=== PATIENT | female | born 1950 | race African-American/Black ===

== ENCOUNTER 2019-06-22 12:53 | Outpatient (CLI) | payer MEDICARE, SELFPAY ==
--- NOTE | ~2019-06-22 | XR_ITS ---
XR lumbar spine min 4V DATE: 06/22/2019 13:29 INDICATION: Acute left-sided low back pain TECHNIQUE: AP, lateral, bilateral oblique and coned lateral lumbosacral views COMPARISON: None FINDINGS: There is degenerative spurring of the included lower thoracic spine. There is degenerative disc disease throughout the lumbar and lumbosacral spine, most severe at L4-5. There is straightening of the lumbar spine. No spondylolysis or spondylolisthesis. No fracture or bone destruction is evident. The lumbar pedicles are intact. There is sacralization of L5 on the right. The sacroiliac joints appear normal. IMPRESSION: Degenerative changes of the thoracic and lumbar spine Reviewed, dictated and finalized at location B. ATE SECRETARY
== END 2019-06-22 12:54 | disposition home or self-care (01) ==
LOC: ANHIMG 13:06
DX: M51.36 Other intervertebral disc degeneration, lumbar region (principal); M51.34 Other intervertebral disc degeneration, thoracic region
CPT/HCPCS: 72110

== ENCOUNTER 2019-07-09 09:32 | Outpatient (CLI) | payer MEDICARE, SELFPAY ==
--- NOTE | ~2019-07-09 | CT_ITS ---
EXAMINATION: CT abdomen pelvis wo con DATE: 07/09/2019 11:01 INDICATION: Epigastric abdominal pain. Left upper quadrant abdominal pain. Back pain. TECHNIQUE: Computed tomography (CT) of the abdomen and pelvis was performed without intravenous contr ast. Automated exposure control and iterative reconstruction technique were employed. Exam dose: 438 .72 mGy-cm total exam DLP. COMPARISON: 11/21/2013 CT abdomen pelvis FINDINGS: There is discoid atelectasis or scarring at the lung bases. Normal heart size. No pericardial or pleural effusion. The liver, gallbladder, bile ducts, spleen, pancreas, pancreatic duct and adrenal glands appear shirin l on this limited noncontrast examination. 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 No left or right renal mass lesion or urinary tract calculus or hydroureteronephrosis. The ur inary bladder is not optimally evaluated due to complete evacuation. Status post hysterectomy. There is atherosclerotic calcification of the abdominal aorta and iliac arteries. No evidence of abdo segun aortic aneurysm. No intraperitoneal or retroperitoneal or pelvic mass lesion or adenopathy or a scites. There are numerous diverticula of the left and right colon and to a lesser extent transverse and asce nding colon. No CT evidence of diverticulitis. No bowel obstruction or intraperitoneal free air. Small fat-containing umbilical hernia. Multilevel degenerative disc disease the lumbar spine, particularly at L3-4 and L4-5. Diffuse idiopat hic skeletal hyperostosis of the thoracolumbar spine. IMPRESSION: Duplication incomplete rotation of right kidney Status post hysterectomy Diverticulosis of left and right colon; no CT evidence of diverticulitis Degenerative changes of the thoracic and lumbar spine Reviewed, dictated and finalized at Location A. Reviewed, dictated and finalized at location B. CTS CONSERVATOR
== END 2019-07-09 09:33 | disposition home or self-care (01) ==
LOC: ANHIMG 09:50
DX: R10.13 Epigastric pain (principal); R10.12 Left upper quadrant pain; M54.9 Dorsalgia, unspecified; D50.9 Iron deficiency anemia, unspecified; K57.30 Diverticulosis of large intestine without perforation or abscess without bleeding
CPT/HCPCS: 74176

== ENCOUNTER 2019-11-28 11:13 | Outpatient (CLI) | payer MEDICARE, SELFPAY ==
--- NOTE | ~2019-11-28 | MM_ITS ---
EXAMINATION: MM screening [facility] BI w treva HISTORY: Screening mammogram TECHNIQUE: Craniocaudal and mediolateral oblique 3-D tomosynthesis images were obtained and synthetic 2-D images were generated. CAD analysis was submitted and interpreted. COMPARISON: 10/07/2018, 03/01/2016, 02/21/2015 bilateral digital screening mammogram examinations BREAST PARENCHYMAL COMPOSITION: The breasts are extremely dense, which lowers the sensitivity of mamm ography. FINDINGS: There is no evidence of suspicious mass, calcification, or architectural distortion to sugg est malignancy in either breast. There has been no suspicious interval change. IMPRESSION: 1. No mammographic evidence of malignancy. 2. Recommend routine screening mammography in one year. BI-RADS Category 1: Negative Reviewed, dictated and finalized at location A.
== END 2019-11-28 11:14 | disposition home or self-care (01) ==
DX: Z12.31 Encounter for screening mammogram for malignant neoplasm of breast (principal)
CPT/HCPCS: 77063; 77067

== ENCOUNTER 2020-12-14 13:52 | Emergency (ER) | payer MEDICARE, SELFPAY ==
--- NOTE | ~2020-12-14 | XR_ITS ---
EXAMINATION: XR wrist RT min 3V DATE: 12/14/2020 14:25 INDICATION: Right wrist pain and swelling. TECHNIQUE: 4 views of right wrist were obtained. COMPARISON: None. FINDINGS: Bone alignment is normal. No fracture. There is mild osteoarthritis of distal radioulnar lynsey int and triscaphe joint. There are dystrophic calcifications in the wrist. IMPRESSION: 1. Mild polyarticular osteoarthritis. Reviewed, dictated and finalized at location A.
[2020-12-14 14:14] VITALS: BP 140/60; PULSE 74; RESP 16; TEMP 36.5; O2SAT 100
[2020-12-14 15:19] VITALS: BP 140/60; PULSE 74; RESP 18; TEMP 36.5; O2SAT 100
--- NOTE | 2020-12-14 15:20 | ED.UPPEXIN ---
HPI - Extremity Injury (Upper) History of Present Illness HPI narrative: 70 yo female presents to the ED c/o wrist pain. She has had pain and swelling to the right wrist for about the past week. Worse with movement. Tender to touch. No known injury. No prior episodes. No fever, weaknes, numbness. Related Data Allergies Allergy/AdvReac Type Severity Reaction Status Date / Time Iodinated Contrast Media Allergy Intermediate SWELLING Verified 10/20/20 12:50 iodine Allergy Unknown Unknown Verified 12/14/20 15:27 lovastatin Allergy Unknown Verified 12/14/20 15:27 simvastatin Allergy Unknown Verified 12/14/20 15:27 topiramate [From Topamax] Allergy Unknown Verified 12/14/20 15:27 Review of Systems Review of Systems: All systems reviewed & are unremarkable except as noted in HPI and below PMFSH Family History Family History (System 10/20/20 @ 12:50 by Izaiah Li) Other Family history of arthritis Family history of malignant neoplasm Hypertension Social History Social History (System 10/20/20 @ 12:50 by Izaiah Li) Smoking status: Never smoker Alcohol intake: current Exam Const: General: healthy appearing, no acute distress and alert Nutritional Appearance: well nourished Orientation/consciousness: patient oriented x3 HENMT: Head: normal to inspection Resp: Effort & Inspection: normal respiratory effort Auscultation: clear to auscultation bilaterally Cardio: Rate: regular rate Rhythm: regular rhythm Other: 2+ right radial Skin: Other: Mild redness around right wrist. Neuro: General: patient oriented x3, moves all extremities, no focal motor deficits and CN's II-XI intact bilaterally Speech: normal speech Gait exam (Neuro): Normal gait present Extrem: Other: Mild-moderate right wrist swelling Psych: Affect: Anxious affect present Course Vital Signs Vital signs: Vital Signs Temperature 36.5 C 12/14/20 14:14 Pulse Rate 74 12/14/20 14:14 Respiratory Rate 16 12/14/20 14:14 Blood Pressure 140/60 12/14/20 14:14 Pulse Oximetry 100 12/14/20 14:14 Temperature 36.5 C 12/14/20 15:19 Pulse Rate 74 12/14/20 15:19 Respiratory Rate 18 12/14/20 15:19 Blood Pressure 140/60 12/14/20 15:19 Pulse Oximetry 100 12/14/20 15:19 Procedures Joint Aspiration/Injection Joint Asp./Inject. 1: Joint Aspirated: wrist/hand Ultrasound Guidance: No Skin Prep: sterile prep and drape Local Anesthetic: lidocaine 1% Amount of anesthesia used (mL): 2 Needle Size Used: 18G Fluid Obtained: bloody Total fluid obtained (mL): 1 Patient Tolerated Procedure: well and no complications Additional Comments: Not enough fluid obtained for labs MDM - Extremity Injury (Upper) MDM Narrative Medical decision making narrative: Septic joint unlikely. There are mild signs of inflammation which makes gout a possibility, although no prior history. Unable to obtain enough fluid for crystal analysis. She does have OA on x-ray, so this is likely contributing, but probably not the only factor. I will treat for gout. Differential Diagnosis Differential diagnosis: Likely other (GOUT, septic joint, OA) Medical Records Attestation: I reviewed the patient's medical records. Imaging Data Radiologist's impression: ITS Impressions Wrist X-Ray 12/14/20 14:34 IMPRESSION: 1. Mild polyarticular osteoarthritis. Discharge Plan Discharge Clinical Impression: Inflammatory arthropathy Patient Disposition: Home, Self-Care Condition: Stable Instructions: Gout (ED), Swollen Joint (ED) Prescriptions: New prednisone 20 mg tablet 40 mg PO DAILY Qty: 14 RF: 0 Follow-up/Referrals: Sheryl,DO Franci [Primary Care Provider] -
[2020-12-14] MEDS: predniSONE 20 MG TABLET 60 MG PO (16:13)
== END 2020-12-14 17:00 | disposition home or self-care (01) ==
PROVIDERS: Emergency Provider Emergency Medicine; PCP Internal Medicine
DX: M19.031 Primary osteoarthritis, right wrist (principal)
CPT/HCPCS: 20600; 73110; 99283; J7512

== ENCOUNTER 2020-12-23 12:41 | Outpatient (CLI) | payer MEDICARE, SELFPAY ==
--- NOTE | ~2020-12-23 | MM_ITS ---
EXAMINATION: MM screening [facility] BI w treva HISTORY: Screening mammogram TECHNIQUE: Craniocaudal and mediolateral oblique 3-D tomosynthesis images were obtained and synthetic 2-D images were generated. CAD analysis was submitted and interpreted. COMPARISON: 11/28/2019, 10/07/2018, 03/01/2016 BREAST PARENCHYMAL COMPOSITION: The breasts are heterogeneously dense, which may obscure small masses . FINDINGS: There is no evidence of suspicious mass, calcification, or architectural distortion to sugg est malignancy in either breast. There has been no suspicious interval change. IMPRESSION: 1. No mammographic evidence of malignancy. 2. Recommend routine screening mammography in one year. BI-RADS Category 1: Negative Reviewed, dictated and finalized at location A.
== END 2020-12-23 12:42 | disposition home or self-care (01) ==
LOC: ANHIMG 12:45
PROVIDERS: PCP Internal Medicine; Visit Provider Internal Medicine
DX: Z12.31 Encounter for screening mammogram for malignant neoplasm of breast (principal)
CPT/HCPCS: 77063; 77067

== ENCOUNTER 2022-04-02 07:35 | Outpatient (CLI) | payer MEDICARE, SELFPAY ==
--- NOTE | ~2022-04-02 | MM_ITS ---
EXAMINATION: MM screening [facility] BI w treva HISTORY: Screening mammogram TECHNIQUE: Craniocaudal and mediolateral oblique 3-D tomosynthesis images were obtained and synthetic 2-D images were generated. CAD analysis was submitted and interpreted. COMPARISON: 12/23/2020, 11/28/2019, 10/07/2018 BREAST PARENCHYMAL COMPOSITION: The breasts are heterogeneously dense, which may obscure small masses . FINDINGS: No suspicious mass, calcification, or architectural distortion are identified in either sissy ast to suggest malignancy. There has been no suspicious interval change. IMPRESSION: 1. No mammographic evidence of malignancy. 2. Recommend routine screening mammography in one year. BI-RADS Category 1: Negative Reviewed, dictated and finalized at location A. OUTFIT SUPERVISOR
== END 2022-04-02 07:36 | disposition home or self-care (01) ==
LOC: ANHIMG 07:38
PROVIDERS: PCP Internal Medicine; Visit Provider Internal Medicine
DX: Z12.31 Encounter for screening mammogram for malignant neoplasm of breast (principal)
CPT/HCPCS: 77063; 77067

== ENCOUNTER 2023-06-25 09:21 | Outpatient (CLI) | payer MEDICARE, SELFPAY ==
--- NOTE | ~2023-06-25 | MM_ITS ---
EXAMINATION: MM screening [facility] BI w treva HISTORY: Screening TECHNIQUE: Craniocaudal and mediolateral oblique 3-D tomosynthesis images were obtained and synthetic 2-D images were generated. CAD analysis was submitted and interpreted. COMPARISON: Comparison to multiple prior studies sequentially, with oldest reviewed study dated 02/03. BREAST PARENCHYMAL COMPOSITION: Dense: The breasts are heterogeneously dense, which may obscure small masses FINDINGS: There is no evidence of suspicious mass, calcification, or architectural distortion to sugg est malignancy in either breast. There has been no suspicious interval change. IMPRESSION: 1. No mammographic evidence of malignancy. 2. Recommend routine screening mammography in one year. BI-RADS Category 1: Negative Reviewed, dictated and finalized at location A. HBORHOOD AIDE
== END 2023-06-25 09:22 | disposition home or self-care (01) ==
DX: Z12.31 Encounter for screening mammogram for malignant neoplasm of breast (principal)
CPT/HCPCS: 77063; 77067

== ENCOUNTER 2023-07-21 08:41 | Emergency (ER) | payer MEDICARE, SELFPAY ==
--- NOTE | ~2023-07-21 | XR_ITS ---
EXAMINATION: XR knee RT 3V DATE: 07/21/2023 09:18 INDICATION: Right posterior knee pain TECHNIQUE: Anteroposterior, oblique and crosstable lateral views of the right knee were obtained COMPARISON: None. FINDINGS: Alignment is normal. No fracture. Chondrocalcinosis at both the medial and lateral compartments. Amparo nt spaces appear normal on nonweightbearing imaging. No joint effusion/layering lipohemarthrosis. Sma ll amount of scattered vascular calcification along the femoral and popliteal arteries. Soft tissues are otherwise unremarkable. IMPRESSION: 1. Chondrocalcinosis at the medial lateral compartments of the right knee. 2. No joint effusion or osseous abnormality. Reviewed, dictated and finalized at location A.
[2023-07-21 08:42] VITALS: BP 168/68; PULSE 75; RESP 17; TEMP 36.5; O2SAT 100
--- NOTE | 2023-07-21 08:52 | ED.LOWEXIN ---
HPI - Extremity Injury (Lower) General Chief Complaint: Extremity Injury, Lower Stated Complaint: R Leg pain Time Seen by Provider: 07/21/23 08:52 Source: patient Mode of arrival: ambulatory Limitations: no limitations History of Present Illness HPI Narrative: Siddhartha is a 73-year-old female patient presenting to the ER today with complaints of posterior medial right knee pain that started Eddi after. She is qualify her pain as constant aching pain and stating it is a 10/10 currently. Pain is worse to stand/ambulate. No history of DVT. There is no leg swelling or erythema in the right lower extremity Related Data Allergies Allergy/AdvReac Type Severity Reaction Status Date / Time Iodinated Contrast Media Allergy Intermediate SWELLING Verified 07/21/23 09:23 iodine Allergy Unknown Unknown Verified 07/21/23 09:23 lovastatin Allergy Unknown Verified 07/21/23 09:23 simvastatin Allergy Unknown Verified 07/21/23 09:23 topiramate [From Topamax] Allergy Unknown Verified 07/21/23 09:23 Review of Systems Review of Systems: Pertinent positives per HPI. Patient denies any fever, chills, rash, headache, visual changes, dizziness, cough, runny nose, sore throat, shortness of breath, chest pain, palpitations, nausea, vomiting, diarrhea, constipation, abdominal pain, or any urinary issues. [facility] Family History Family History Other Family history of arthritis Family history of malignant neoplasm Hypertension Social History Social History Smoking status: Never smoker Alcohol intake: current Comments At the time of my signature, I reviewed and agree with the nursing past medical, surgical, social, and family history. There is no relevant family history pertinent to the patient complaint. Exam Narrative: General: Well-developed, well nourished, in no apparent distress Head: Normocephalic, atraumatic. Cardio: Regular rate and rhythm, s1 and s2 normal, no murmur appreciated. Resp: Clear to auscultation bilaterally, no rhonchi, rales, wheezing or rubs. Musculoskeletal: No deformity,tender to palpation over the medial posterior knee, pain with flexion and extension over the medial posterior knee, grossly normal range of motion, muscle strength strong and equal, peripheral pulse strong, no edema, no cyanosis Course Course Emergency Course: Portions of this record may have been created with voice recognition software. Vital Signs Vital signs: Vital Signs Temperature 36.5 C 07/21/23 08:42 Pulse Rate 75 07/21/23 08:42 Respiratory Rate 17 07/21/23 08:42 Blood Pressure 168/68 H 07/21/23 08:42 Pulse Oximetry 100 07/21/23 08:42 Oxygen Delivery Room Air 07/21/23 08:42 Temperature 36.5 C 07/21/23 08:42 Pulse Rate 75 07/21/23 08:42 Respiratory Rate 17 07/21/23 08:42 Blood Pressure 168/68 H 07/21/23 08:42 Pulse Oximetry 100 07/21/23 08:42 Oxygen Delivery Room Air 07/21/23 08:42 Vital signs reviewed MDM - Extremity Injury (Lower) MDM Narrative Medical decision making narrative: At the time of visit patient is resting comfortably on the exam table. Patient appears to be nontoxic. Diagnostics: Knee X-Ray 07/21/23 09:21 IMPRESSION: 1. Chondrocalcinosis at the medial lateral compartments of the right knee. 2. No joint effusion or osseous abnormality. I suspect patient has acute posterior medial knee pain likely due to inflammation. Prescription for naproxen was sent to the pharmacy. Supportive measures were discussed with the patient and they voiced understanding discharge instructions and agrees to treatment plan. Return precautions reviewed Differential Diagnosis Differential diagnosis: Likely acute internal derangement of knee and other (Knee sprain, acute knee pain, osteoarthritis) Imaging Data Radiologist's impression: ITS Impressions Knee
[2023-07-21 09:23] VITALS: BP 147/80; PULSE 65; RESP 14; O2SAT 97
[2023-07-21] MEDS: NAPROXEN 500 MG TABLET PO (09:34)
[2023-07-21 10:14] VITALS: BP 148/105; PULSE 72; RESP 14; TEMP 36.4; O2SAT 97
== END 2023-07-21 10:16 | disposition home or self-care (01) ==
PROVIDERS: Emergency Provider Nurse Practitioner Family
DX: M25.561 Pain in right knee (principal); M11.261 Other chondrocalcinosis, right knee
CPT/HCPCS: 73562; 99283; A9270

== ENCOUNTER 2023-09-05 11:12 | Outpatient (CLI) | payer MEDICARE, SELFPAY ==
--- NOTE | ~2023-09-05 | US_ITS ---
US breast BI complete DATE: 09/05/2023 12:35 INDICATION: Heterogeneously dense breast tissue on June 25, 2023 screening mammogram, which may o bscure small masses TECHNIQUE: Real-time imaging of both complete breast echo L4 quadrants and subareolar area of each br east COMPARISON: June 25, 2023 mammogram screening mammogram FINDINGS: No suspicious mass or shadowing, cyst or other significant sonographic abnormality the daryl st is intact. IMPRESSION: BI-RADS Category 1: Negative Recommendation: Routine annual mammographic screening Reviewed, dictated and finalized at Location A. Reviewed, dictated and finalized at location A.
== END 2023-09-05 11:13 | disposition home or self-care (01) ==
DX: R92.343 Mammographic extreme density, bilateral breasts (principal); R92.2 Inconclusive mammogram
CPT/HCPCS: 76641

== ENCOUNTER 2024-06-27 07:28 | Outpatient (CLI) | payer MEDICARE, SELFPAY ==
--- NOTE | ~2024-06-27 | MM_ITS ---
EXAMINATION: MM screening laura BI w treva HISTORY: Screening mammogram TECHNIQUE: Craniocaudal and mediolateral oblique 3-D tomosynthesis images were obtained and synthetic 2-D images were generated. CAD analysis was submitted and interpreted. COMPARISON: 06/25/2023, 04/02/2022, 12/23/2020 BREAST PARENCHYMAL COMPOSITION:Dense: The breasts are heterogeneously dense, which may obscure small masses. FINDINGS: No suspicious mass, calcification, or architectural distortion are identified in either sissy ast to suggest malignancy. There has been no suspicious interval change. IMPRESSION: No mammographic evidence of malignancy. Recommend routine screening mammography in one year. BI-RADS Category 1: Negative Reviewed, dictated and finalized at location . RAL STERILE TECH
--- OUTSIDE RECORDS SUMMARY | 2024-06-27 07:33 | XMS_ITS | Encounter Summary ---
Author Organization [facility] Health Address [address] [place] [address] Care Team Providers Care Bee Breeder Name Role Phone Keenan Angulo MD Primary Care Provider [phone] Harinder Lilly MD Unavailable [phone] Keenan Angulo MD Unavailable [phone] Ivana Messina MD Unavailable [phone] Yaima Crawford MD Unavailable [phone] Eliot Shaw MD Unavailable My Cottrell MD Unavailable [phone] Karlo Mendieta MD Unavailable [phone] Guillermo Bridges MD Unavailable Unavailable Franci Rocha DO Primary Care Provider [phone] Franci Rocha DO Unavailable [phone] Juanjose Lin DPM Unavailable [phone] Shaneka Rodrigues Unavailable [phone] Shaneka Rodrigues Unavailable [phone] Encounter Details Date Type Department Care Team (Late st Contact Info) Description 05/07/2017 [facility] Outpatient Visit [facility] [address] [place] [address] Document, Scanned Social History Tobacco Use Types Packs/Day Years Used Date Smoking Tobacco: Never Smokeless Tobacco: Never Alcohol Use Standard Drinks/Week Comments Yes 1 (1 standard drink = 0.6 oz pur e alcohol) red wine Sex and Gender Information Value Date Recorded Sex Assigned at Not on file Gender Identity Not on file Sexual Orientation Not on file documented as of this encounter Plan of Treatment Upcoming Encounters Date Type Department Care Team (Latest Contact Info) Description 08/18/2024 12:00 PM CDT Hospital Encounter [facility] [address] [place] [phone] Susana Polo MD [facility] [place] [phone] Surgery General 08/18/2024 12:00 PM CDT - 08/18/2024 1:00 PM CDT Surgery [facility] [address] [place] [phone] Susana Polo MD [address] [place] [phone] COLONOSCOPY SCREEN w/ advanced endoscopist 10/19/2024 9:00 AM CDT Office Visit [facility] - Internal Medicine [address] [facility] [place] [address] Franci Rocha DO [address] [place] [phone] 11/19/2024 8:45 AM CDT Office Visit [facility] [address] [place] [address] [address] [place] [address] Zane Mejía MD [address] [place] [id number] 04/15/2025 8:30 AM SEQUINS STRINGER Office Visit [facility] - GI [address] [place] [address], [place] [address] Scheduled Procedures Name Priority Associated Diagnoses Date/Ti me COLONOSCOPY SCREEN History of colon polyps 08/18/2024 12:00 PM CDT documented as of this encounter Goals Goal Patient Goal Type Associated Problems Recent Progress Patient-Stated? Author Blood Pressure < 140/90 Blood Pressure 144/90(2024 8:12 AM SEQUINS STRINGER) No Yadi Muse MA Exercise 3X per week (30 min per time) Exercise Not on track( 015 10:01 AM SEQUINS STRINGER) No Yadi Muse MA HDL > 40 Result Component 57(10/08/2023 11:45 AM CDT) No Yadi Muse MA documented as of this encounter Visit Diagnoses Not on filedocumented in this encounter Care Teams Bee Breeder Relationship Specialty Start Date End Date Keenan Angulo MD [address] [place] [address] PCP - General 02/13/08 03/24/20 Keenan Angulo MD [address] [place] [address] PCP - Attributed-[facility] 10/09/1605/05 Franci Rocha DO [address] [place] [address] PCP - General Internal Medicine 03/25/20 Franci Rocha DO [address] [place] [address] PCP - Attributed-[facility] 05/06/20 Harinder Lilly MD [address] [place] [address] Orthopedic Surgery 08/09/16 06/25/21 Ivana Messina MD [address] [place] [address] Otolaryngology 06/09/18 Yaima Crawford MD [address] [facility] [address] [place] [address] Neurology 06/09/18 Eliot Shaw MD [address] [place] [address] [address] [place] [address] Gastroenterology 10/30/18 06/21/19 My Cottrell MD [address] [place] [address] [place] [phone] Gastroenterology 10/30/18 06/21/19 Karlo Mendieta MD [address] [place] [address] [place] [phone] Gastroenterology 10/30/18 03/24/20 Guillermo Bridges MD [address] [place] [phone] Resident Student Resident 06/22/19 Juanjose Lin, DPM [address] [address] Orthopedic 06/26/21 Shaneka Rodrigues Care Coordination Specialist Care Management 10/22/23 10/22/23 Shaneka Rodrigues Care Coordination Specialist Care Management 05/13/24 05/13/24 documented as of this encounter
--- OUTSIDE RECORDS SUMMARY | 2024-06-27 07:33 | XMS_ITS | Encounter Summary ---
Author Organization [facility] Address [address] [place] [address] Care Team Providers Care Ship Harbor Pilot Name Role Phone Ivana Messina MD Unavailable Yaima Crawford MD Unavailable [phone] Guillermo Bridges MD Unavailable Unavailable Franci Rocha DO Primary Care Provider [phone] Franci Rocha DO Unavailable Juanjose Lin [facility] Unavailable Reason for Visit * Reason Onset Date Comments Update 06/23/2024 Encounter Details Date Type Department Care Team (Late st Contact Info) Description 06/23/2024 Telephone [facility] Heart & Vascular Care [address] [place] [address] [address] [place] [address] Zane Mejía MD [address] [place] [address] [address] [place] [address] Update Social History Tobacco Use Types Packs/Day Years Used Date Smoking Tobacco: Never Passive Smoke Exposure: Never Smokeless Tobacco: Never Alcohol Use Standard Drinks/Week Comments Not Currently 1 (1 standard drink = 0.6 oz pure alcohol) rarely, last drink 2 years ago AUDIT-C Answer Date Recorded Q1: How often do you have a drink containing alc ohol? Never 05/18/2021 Average Number of Drinks Not on file 022 Frequency of Binge Drinking Not on file 05/06 PHQ-2 Answer Date Recorded Patient Health Questionnaire-2 Score 0 10/08/2023 Sex and Gender Information Value Date Recorded Sex Assigned at Not on file Gender Identity Not on file Sexual Orientation Not on file documented as of this encounter Functional Status Functional Status Response Date of Assess ment Is person deaf or have serious hearing difficult y? No 05/18/2021 Is person blind or have serious difficulty seein g? No 05/18/2021 Does person have serious dif ficulty walking/climbing stairs? No 05/18/2021 Does person have difficulty dressing/bathing? No 05/18/2021 Does person have difficulty doing errands alone? No 05/18/2021 Cognitive Status Response Date of Assessm ent Does person have difficulty concentrating/remembering/making decisions? No 05/18/2021 documented as of this encounter Miscellaneous Notes * Telephone Encounter - Jr Jerez MA - 06/24/2024 9:26 AM CST Advised patient no current changes. Patient voiced understanding. TER PATTERNMAKER * Telephone Encounter - Jr Jerez MA - 06/23/2024 1:23 PM CST BP log below: 2/3 120/65 2/4 128/65 2/6 146/72 2/7 127/66 2/10 132/72 2/12 128/71 2/15 133/68 2/17/137/78 06/23/138/80 TER PATTERNMAKER * Telephone Encounter - Pilar Alicea - 06/23/2024 11:41 AM CST Pt request a call back to update on medication. TER PATTERNMAKER documented in this encounter Plan of Treatment Upcoming Encounters Date Type Department Care Team (Latest Contact Info) Description 08/18/2024 12:00 PM CDT Hospital Encounter [facility] ENDOSCOPY [address] [place] [phone] Susana Polo MD [address] [place] [phone] Surgery General 08/18/2024 12:00 PM CDT - 08/18/2024 1:00 PM CDT Surgery [facility] ENDOSCOPY [address] [place] [phone] Susana Polo MD [facility] [place] [address] COLONOSCOPY SCREEN w/ advanced endoscopist 10/19/2024 9:00 AM CDT Office Visit [facility] - Internal Medicine [address] [place] [address] Franci Rocha DO [address] [place] [phone] 11/19/2024 8:45 AM CDT Office Visit [facility] Heart & Vascular Care [address] [facility] [address] [place] [address] Zane Mejía MD [address] [place] [address] [address] [place] [address] 04/15/2025 8:30 AM PLASTER PATTERNMAKER Office Visit [facility] [place] [address] [place] [address], [facility] [place] [phone] Scheduled Procedures Name Priority Associated Diagnoses Date/Ti me COLONOSCOPY SCREEN History of colon polyps 08/18/2024 12:00 PM CDT documented as of this encounter Goals Goal Patient Goal Type Associated Problems Recent Progress Patient-Stated? Author Blood Pressure < 140/90 Blood Pressure 144/90(05/21 8:12 AM PLASTER PATTERNMAKER) No Yadi Muse MA Exercise 3X per week (30 min per time) Exercise Not on track(2014 10:01 AM PLASTER PATTERNMAKER) Yadi Frausto MA Medication Management General On track(2023 9:01 AM PLASTER PATTERNMAKER) Keyona Banuelos RN Note: Expected end date: Ongoing Interventions: Take all medications as prescribed Let your doctor know right away about any changes in your medications Make sure to request a refill of your medication at least one week prior to your last dose Medication Management General No Janae Elliott, RN Note: Expected end date: oNGOING Interventions: Take all medications as prescribed Let your doctor know right away about any changes in your medications Make sure to request a refill of your medication at least one week prior to your last dose Medication Management General No Janae Elliott, ANIYA Note: Expected end date: ongoing Interventions: Take all medications as prescribed Let your doctor know right away about any changes in your medications Make sure to request a refill of your medication at least one week prior to your last dose HDL > 40 Result Component 57( 11:45 AM CDT) Yadi Frausto MA documented as of this encounter Visit Diagnoses Not on filedocumented in this encounter Care Teams Ship Harbor Pilot Relationship Specialty Start Date End Date Franci Rocha DO [address] [place] [phone] PCP - General Internal Medicine 03/25/20 Franci Rocha DO [address] [place] [phone] PCP - [facility] 05/06/20 Ivana Messina MD Otolaryngology 06/09/18 Yaima Crawford MD Neurology 06/09/18 Guillermo Bridges MD Resident Student Resident 2/17/20 Juanjose Lin DPM [address] [facility]. [address] [place] [address] Orthopedic 06/26/21 documented as of this encounter
--- OUTSIDE RECORDS SUMMARY | 2024-06-27 07:33 | XMS_ITS | Encounter Summary ---
Author Organization [facility] Health Address [address] [facility] [place] [address] Care Team Providers Care Silviculture Teacher Name Role Phone Keenan Angulo MD Primary Care Provider [phone] Harinder Lilly MD Unavailable [phone] Keenan Angulo MD Unavailable [phone] Ivana Messina MD Unavailable [phone] Yaima Crawford MD Unavailable [phone] Eliot Shaw MD Unavailable My Cottrell MD Unavailable [phone] Karlo Mendieta MD Unavailable [phone] Guillermo Bridges MD Unavailable Unavailable Franci Rocha DO Primary Care Provider [phone] Franci Rocha DO Unavailable [phone] Juanjose Lin DPM Unavailable [phone] Shaneka Rodrigues Unavailable [phone] Shaneka Rodrigues Unavailable [phone] Encounter Details Date Type Department Care Team (Late st Contact Info) Description 04/05/2017 [facility] Outpatient Visit [facility] [address] [place] [address] Document, Scanned Social History Tobacco Use Types [...] Description 08/18/2024 12:00 PM CDT Hospital Encounter [facility] ENDOSCOPY [address] [place] [phone] Susana Polo MD [facility] [place] [phone] Surgery General 08/18/2024 12:00 PM CDT - 08/18/2024 1:00 PM CDT Surgery [facility] ENDOSCOPY [address] [place] [phone] Susana Polo MD [address] [place] [phone] COLONOSCOPY SCREEN w/ advanced endoscopist 10/19/2024 9:00 AM CDT Office Visit [facility] - Internal Medicine [address] [facility] [place] [address] Franci Rocha DO [address] [place] [phone] 11/19/2024 8:45 AM CDT Office Visit [facility] Heart & Vascular Care [address] [place] [address] [address] [place] [address] Zane Mejía MD [address] [place] [address] 04/15/2025 8:30 AM RATE ANALYST Office Visit [facility] Physician Group - [place] [address] [place] [address], [place] [address] Scheduled Procedures Name Priority Associated Diagnoses Date/Ti me COLONOSCOPY SCREEN History of colon polyps 08/18/2024 12:00 PM CDT documented as of this encounter Goals Goal Patient Goal Type Associated Problems Recent Progress Patient-Stated? Author Blood Pressure < 140/90 Blood Pressure 144/90(2024 8:12 AM RATE ANALYST) No Yadi Muse MA Exercise 3X per week (30 min per time) Exercise Not on track( 015 10:01 AM RATE ANALYST) No Yadi Muse MA HDL > 40 Result Component 57(10/08/2023 11:45 AM CDT) No Yadi Muse MA documented as of this encounter Visit Diagnoses Not on filedocumented in this encounter Care Teams Silviculture Teacher Relationship Specialty Start Date End Date Keenan Angulo MD [address] [place] [address] PCP - General 02/13/08 03/24/20 Keenan Angulo MD [address] [place] [address] PCP - Att[facility] 10/09/1605/05 Franci Rocha DO [address] [place] [address] PCP - General Internal Medicine 03/25/20 Franci Rocha DO [address] [place] [address] PCP - Attributed-[facility] 05/06/20 Harinder Lilyl MD [address] [place] [address] Orthopedic Surgery 08/09/16 06/25/21 Ivana Messina MD [address] [place] [address] Otolaryngology 06/09/18 Yaima Crawford MD [address] [facility] [address] [place] [address] Neurology 06/09/18 Eliot Shaw MD [address] [place] [address] [address] [place] [address] Gastroenterology 10/30/18 06/21/19 My Cottrell MD [address] [place] [address] [place] [address] Gastroenterology 10/30/18 06/21/19 Karlo Mendieta MD [address] [place] [address] [place] [address] Gastroenterology 10/30/18 03/24/20 Guillermo Bridges MD [address] [place] [address] Resident Student Resident 06/22/19 Juanjose Lin, DPM [address] [address] Orthopedic 06/26/21 Shaneka Rodrigues Care Coordination Specialist Care Management 10/22/23 10/22/23 Shaneka Rodrigues Care Coordination Specialist Care Management 05/13/24 05/13/24 documented as of this encounter
--- OUTSIDE RECORDS SUMMARY | 2024-06-27 07:33 | XMS_ITS | Encounter Summary ---
Author Organization [facility] Health Address [address] [place] [address] Care Team Providers Care Business Trainer Name Role Phone Keenan Angulo MD Primary Care Provider [phone] Harinder Lilly MD Unavailable [phone] Keenan Angulo MD Unavailable [phone] Ivana Messina MD Unavailable [phone] Yaima Crawford MD Unavailable [phone] Eliot Shaw MD Unavailable My Cottrell MD Unavailable [phone] Karlo Mendieta MD Unavailable [phone] Guillermo Bridges MD Unavailable Unavailable Franci Rocha DO Primary Care Provider [phone] Franci Rocha DO Unavailable [phone] Juanjose Lin DPM Unavailable [phone] Shaneka Rodrigues Unavailable [phone] Shaneka Rodrigues Unavailable [phone] Encounter Details Date Type Department Care Team (Late st Contact Info) Description 06/07/2017 [facility] Outpatient Visit [facility] [address] [place] [address] Document, Scanned Social History Tobacco Use Types [...] Description 08/18/2024 12:00 PM CDT Hospital Encounter [facility] ENDOSCOPY [address] [place] [phone] Susana Polo MD [facility] [place] [address] Surgery General 08/18/2024 12:00 PM CDT - 08/18/2024 1:00 PM CDT Surgery [facility] ENDOSCOPY [address] [place] [phone] Susana Polo MD [address] [place] [phone] COLONOSCOPY SCREEN w/ advanced endoscopist 10/19/2024 9:00 AM CDT Office Visit [facility] - Internal Medicine [address] [facility] [place] [address] Franci Rocha DO [address] [place] [address] 11/19/2024 8:45 AM CDT Office Visit [facility] Heart & Vascular Care [address] [place] [address] [address] [place] [address] Zane Mejía MD [address] [place] [address] 04/15/2025 8:30 AM BUILDING CERTIFIER Office Visit [facility] Physician Group - GI [address] [place] [address], [place] [address] Scheduled Procedures Name Priority Associated Diagnoses Date/Ti me COLONOSCOPY SCREEN History of colon polyps 08/18/2024 12:00 PM CDT documented as of this encounter Goals Goal Patient Goal Type Associated Problems Recent Progress Patient-Stated? Author Blood Pressure < 140/90 Blood Pressure 144/90(2024 8:12 AM BUILDING CERTIFIER) No Yadi Muse MA Exercise 3X per week (30 min per time) Exercise Not on track( 015 10:01 AM BUILDING CERTIFIER) No Yadi Muse MA HDL > 40 Result Component 57(10/08/2023 11:45 AM CDT) No Yadi Muse MA documented as of this encounter Visit Diagnoses Not on filedocumented in this encounter Care Teams Business Trainer Relationship Specialty Start Date End Date Keenan Angulo MD [address] [place] [address] PCP - General 02/13/08 03/24/20 Keenan Angulo MD [address] [place] [address] PCP - Attributed-[facility] 10/09/1605/05 Franci Rocha DO [address] [place] [address] PCP - General Internal Medicine 03/25/20 Franci Rocha DO [address] [place] [address] PCP - Attributed-[facility] 05/06/20 Harinder Lilly MD [address] [place] [address] Orthopedic Surgery 08/09/16 06/25/21 Ivana Messina MD [address] [place] [address] Otolaryngology 06/09/18 Yaima Crawford MD [address] [facility] [address] [place] [address] Neurology 06/09/18 Eliot Shaw MD [address] [place] [address] [address] [place] [address] Gastroenterology 10/30/18 06/21/19 My Cottrell MD [address] [place] [address] [place] [address] Gastroenterology 10/30/18 06/21/19 Karlo Mendieta MD [address] [place] [address] [place] [address] Gastroenterology 10/30/18 03/24/20 Guillermo Bridges MD [address] [place] [address] Resident Student Resident 06/22/19 Juanjose Lin, DPM [address] [address] Orthopedic 06/26/21 Shaneka Rodrigues Care Coordination Specialist Care Management 10/22/23 10/22/23 Shaneka Rodrigues Care Coordination Specialist Care Management 05/13/24 05/13/24 documented as of this encounter
--- OUTSIDE RECORDS SUMMARY | 2024-06-27 07:33 | XMS_ITS | Referral Summary ---
Author Organization [facility] Address [address] [place] [address] Care Team Providers Care Director Of Recruiting Name Role Phone Ivana Messina MD Unavailable Yaima Crawford MD Unavailable [phone] Guillermo Bridges MD Unavailable Unavailable Franci Rocha DO Primary Care Provider [phone] Franci Rocha DO Unavailable Juanjose Lin DPM Unavailable [phone] Source Comments [facility],non-owned Affiliates and Associated Physician Practices is amultiple site organization consisting of ambulatory clinics and hospital sitesin [place], [place], [place] and [place]. This disclosure is being madepursuant to the Care Everywhere program and may not contain all information available regarding this patient. Last updated 18.[facility] Encounters Date Type Department Care Team Description 06/27/2024 Refill [facility] - Internal Medicine [address] [facility] [facility] [place] [place] [address] Franci Rocha DO Refill Request 06/23/2024 Telephone [facility] [address] [place] [address] [address] [place] [address] Zane Mejía MD Update 06/05/2024 8:40 AM UTILIZATION MANAGER - 06/05/2024 11:59 PM UTILIZATION MANAGER Hospital Encounter [facility] [address] [place] [address] Zane Mejía MD Discharge Disposition: Home or Self Care 05/21/2024 8:00 AM UTILIZATION MANAGER Office Visit [facility] [place] [address] Franci Rocha DO Friedman, Mark A, MD Essential hypertension (Primary Dx); SVT (supraventricular tachycardia) (HCC); Palpitations 05/13/2024 Patient Outreach [facility] - Care Coordination [address] [place] [address] Shaneka Rodrigues Outreach Preventive Care 04/16/2024 Travel 04/16/2024 9:00 AM UTILIZATION MANAGER Office Visit [facility] - GI [address] [facility] [place] [address] Andria Awad MD Colon cancer screening (Primary Dx) 04/13/2024 10:40 AM UTILIZATION MANAGER Office Visit [facility] - Internal Medicine [address] [facility] [place] [address] Franci Rocha DO SVT (supraventricular tachycardia) (HCC) (Primary Dx); Palpitations; Need for vaccination; Essential hypertension from Last 3 Months Allergies Active Allergy Reactions Criticality Noted Date Comments Irbesartan-Hydrochlorot hiazide Nausea Low 07/23/2008 Fish Allergy Itching,Swelling High 02/27/2021 Food Anaphylaxis High 07/25/2023 seafood Lovastatin Swelling High 07/23/2008 Nifedipine Dizziness High 07/23/2008 Dizziness Calcium Carbonate-Vitamin D Itching Medium 06/24/2009 Pepcid Itching Medium 10/08/2019 Simvastatin Myalgias Low 07/23/2008 Topiramate Shortness of Breath High 04/09/2018 Tramadol Hcl Other Low 07/23/2008 Doesn't work well, no actual allergy Medications * Be aware that medications may not be up to date on this document. Alwaysverify current medications with the patient. Medication Sig Dispensed Refills Start Date End Date Status polyethylene glycol 3350 (MIRALAX) packet Take 17 (seventeen) g by mouth 2 times daily Active Wheat Dextrin (BENEFIBER DRINK MIX PO) Take 1 Each by mouth 2 times daily Active Multiple Vitamins-Minerals (WOMENS MULTI VITAMIN & MINERAL PO) Take 1 tablet by mouth once daily Centrum Active acetaminophen (TYLENOL) 325 MG tablet Take 2 tablets by mouth every 4 hours as needed Maximum allowable Acetaminophen amount = 4 Grams (4000 mg) / 24 hours. 10/31/2018 Active Probiotic Product (PROBIOTIC DAILY) capsule Take 1 (one) capsule by mouth once daily Active Coenzyme Q10 200 MG Take 1 (one) capsule by mouth every evening 90 tablet 4 10/03/2021 Active zinc oxide (Sandra's) 40 % ointment Apply to affected area as needed for Other (skin wound) 56 g 3 10/08/2022 Active ibuprofen (Motrin) 800 MG tablet Take 1 (one) tablet by mouth every 8 hours as needed For pain. 09/12/2022 Active dicyclomine (Bentyl) 20 MG tabletIndications: Irritable bowel syndrome with constipation TAKE 1 TABLET BY MOUTH THREE TIMES DAILY NEEDED FOR ABDOMINAL PAIN/SPASMS 180 tablet 05/10/2023 Active Nystop 266114 UNIT/GM powder APPLY TOPICALLY TO AFFECTED AREA TWICE DAILY NEEDED FOR SKIN RASH 60 g 06/24/2023 Active EPINEPHrine (Epipen) 0.3 MG/0.3ML auto-injector pen Inject 0.3 mL into muscle once as needed for Anaphylaxis 0.6 mL 1 07/25/2023 Active amLODIPine (Norvasc) 5 MG tablet Take 1 tablet by mouth twice daily 180 tablet 3 09/03/2023 Active pantoprazole EC (Protonix) 40 MG tablet TAKE 1 TABLET BY MOUTH ONCE DAILY BEFORE BREAKFAST 90 tablet 3 11/20/2023 Active lubiprostone (Amitiza) 8 MCG CAPS capsuleIndications :Irritable bowel syndrome with constipation TAKE 1 CAPSULE BY MOUTH EVERY 48 HOURS 30 capsule 6 01/28/2024 Active meloxicam (Mobic) 7.5 MG tablet Take 1 tablet by mouth once daily 30 tablet 3 03/16/2024 Active tacrolimus (Protopic) 0.1 % ointment Apply to affected area 2 times daily Active nebivolol (Bystolic) 20 MG tablet Take 1 (one) tablet by mouth once daily 90 tablet 3 05/21/2024 Active aspirin (Aspirin) 81 MG chew tablet Take 1 (one) tablet by mouth once daily 100 tablet 4 05/21/2024 Active rosuvastatin (Crestor) 10 MG tablet Take 1 (one) tablet by mouth once daily 100 tablet 4 05/21/2024 Active Active Problems Problem Noted Date Diagnosed Date SVT (supraventricular tachycardia) 10/08/2023 Increased risk of breast cancer 08/29/2023 Dense breasts 07/10/2023 Pre-diabetes 03/26/2022 Candidal dermatitis 10/09/2021 Cervical radiculopathy 10/09/2021 Chronic bilateral low back pain without sciatica 04/03/2021 Class 1 obesity due to exces s calories with serious comorbidity and body mass index (BMI) of 30.0 to 30.9 in adult 04/03/2021 History of GI bleed 04/03/2021 Numbness and tingling of foot 01/24/2021 SVT (supraventricular tachycardia) 03/25/2020 Tear of medial meniscus of left knee, subsequent encounter 06/22/2019 Atherosclerosis of aorta 05/22/2019 Overview (05/22/2019): CT Abdomaen Pelvis 07/14/18 The noncontrast enhanced vascular structures demonstrate mild atherosclerosis noted throughout the abdominal aorta and iliac vessels. Iron deficiency anemia 10/30/2018 Overview (04/03/2021): -Small bowel GI bleed-resolved -area of erythema seen on capsule study -up to date with colonoscopy. -stop iron. Recheck level in 03/2022 Irritable bowel syndrome with constipation 10/30 Overview (01/24/2021): -GI: Dr. Guillermo Bridges -GI prescribed: lubiprostone and bentyl, and gabapentin for abdominal pain. 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 Neg, ESR, RF. Uric acid normal. Will monitor for now. Irritable bowel syndrome with constipation 10/19/2020 04/03/2021 Left lower quadrant abdominal pain 03/25/2020 10/19/2020 Colon polyp 11/05/2018 10/19/2020 Left shoulder pain 10/28/2009 Overview (09/27/2014): H/O Irritative Dermatitis 07/23/2008 Overview (07/23/2008): From her jewelry H/O Previous Mastalgia 07/23/200810/19 Diverticulosis 07/23/2008 06/29/2021 Overview (07/23/2008): Colonoscopy 1998, 2007 Elective surgery for purpose s other than treating health conditions 07/23/2008 09/05/2008 Overview (02/03/2015): Removal of pigmented nevi from Lt shoulder 2000 Chronic Helicobacter pylori gastritis 07/23/2008 04/16/2011 Overview (02/03/2019): Endoscopy/colonoscopy 2001 IMO UPDT 02/03/2019 Nerve pain 01/24/2021 Immunizations Name Administration Dates Next Due COVID MODERNA 12+ yr 50mcg/0.5mL 04/13/2024 COVID PFIZER 12+YR 30MCG/0.3mL 04/08/2023 COVID PFIZER BIVALENT 12Y+ 30mcg/0.3ML 02/28/2022 Covid Moderna primary monova lent 12+ yr 0.5mL 03/23/2021,07/25/2020,06/27/2020 Covid Pfizer primary Monoval ent 12+ yr 0.3ml 10/03/2021 FLU VACCINE TRI IIV3 SPLIT P F IM (FLUVIRIN) 04/08/2013,04/10/2012 INFLUENZA A G0A6-44 VACCINE 05/06/2009 INFLUENZA VACCINE 01/29/2024,,03/03/2020,2016,02/14/2011,02/01/2010,02/03/2009,0 01/06/2003 INFLUENZA VACCINE, ADJUVANTE D, QUADR. (FLUAD QUADRIVALENT; 65Y+) (AIIV4) 04/08/2023,03/15/2022 INFLUENZA VACCINE, HIGH-DOSE , QUADR. (FLUZONE HIGH-DOSE QUADRIVALENT; 65Y+), 0.7 ML (HD-IIV4) 02/06/2021,01/28/2020,04/01/2017 INFLUENZA VACCINE, HIGH-DOSE , TRIV. (FLUZONE HIGH-DOSE TRIVALENT; 65Y+) (HD-IIV3) 01/29/2024 INFLUENZA VACCINE, QUADR. (A FLURIA, FLUZONE QUADRIVALENT; 6MO+) (IIV4) 02/08/2014 INFLUENZA VACCINE, QUADR. (F LUZONE; FLULAVAL; FLUARIX; AFLURIA QUADRIVALENT; 6MO+), 0.5 ML (IIV4) 04/10/2016,04/05/2015 PNEUMOCOCCAL PPSV23 08/05/2013 Pneumococcal Pcv13 Conj 08/09/2014 RSV AREXVY 60YR+ 0.5ML 01/29/2024 TD VACCINE 04/05/1998 TDAP (7yrs+) 12/09/2018,09/06/2008 ZOSTER VACCINE, LIVE 07/04/2009 Zoster Hzv Vacc Recombinant Inj Im 09/01/2018, iNFLUENZA VACCINE, RECOM-TREJO, QUADR. (FLUBLOCK QUADRIVALENT; 18Y+) (RIV4) 06/09/2018 Social History Tobacco Use Types Packs/Day Years Used Date Smoking Tobacco: Never Passive Smoke Exposure: Never Smokeless Tobacco: Never Tobacco Cessation:Counseling Given: Not Answered Alcohol Use Standard Drinks/Week Comments Not Currently [...] on file Sexual Orientation Not on file Last Filed Vital Signs Vital Sign Reading Time Taken Comments Blood Pressure 144/90 05/21/2024 8:12 AM UTILIZATION MANAGER Pulse 73 05/21/2024 8:12 AM UTILIZATION MANAGER Temperature 36.4 C (97.6 F) 04/16/2024 9:08 AM UTILIZATION MANAGER Respiratory Rate 16 10/16/2021 12:23 PM CDT Oxygen Saturation 99% 04/16/2024 9:08 AM UTILIZATION MANAGER Inhaled Oxygen Concentration - - Weight 67 kg (147 lb 9.6 oz) 05/21/2024 8:12 AM UTILIZATION MANAGER Height 149.9 cm (4' 11 ) 04/16/2024 9:08 AM UTILIZATION MANAGER Body Mass Index 29.81 04/16/2024 9:08 AM UTILIZATION MANAGER Functional Status Functional Status Response Date of [...] person have difficulty concentrating/remembering/making decisions? No 05/18/2021 Plan of Treatment Upcoming Encounters Date Type Department Care Team (Latest Contact Info) Description 08/18/2024 12:00 PM CDT Hospital Encounter [facility] [address] [place] [phone] Susana Polo MD [address] [place] [phone] Surgery General 08/18/2024 12:00 PM CDT - 08/18/2024 1:00 PM CDT Surgery [facility] [address] [place] [phone] Susana Polo MD [address] [place] [phone] COLONOSCOPY SCREEN w/ advanced endoscopist 10/19/2024 9:00 AM CDT Office Visit [facility] - Internal Medicine [address] [facility] [place] [place] [address] Franci Rocha DO [address] [facility] [phone] 11/19/2024 8:45 AM CDT Office Visit [facility] [address] [place] [address] Zane Mejía MD [address] [place] [address] [address] [place] [address] 04/15/2025 8:30 AM UTILIZATION MANAGER Office Visit [facility] - GI [address] [place] [address], [place] [phone] Scheduled Procedures Name Priority Associated Diagnoses Date/Ti me COLONOSCOPY SCREEN History of colon polyps 08/18/2024 12:00 PM CDT Goals Goal Patient Goal Type Associated Problems Recent Progress Patient-Stated? Author Blood Pressure < 140/90 Blood Pressure 144/90(05/21 8:12 AM UTILIZATION MANAGER) No Yadi Muse MA Exercise 3X per week (30 min per time) Exercise Not on track(2014 10:01 AM UTILIZATION MANAGER) No Yadi Muse MA Medication Management General On track(2023 9:01 AM UTILIZATION MANAGER) No Keyona Spivey RN Note: Expected end date: Ongoing Interventions: [...] Janae Elliott, RN Note: Expected end date: ongoing Interventions: Take all medications as prescribed Let your doctor know right away about any changes in your medications Make sure to request a refill of your medication at least one week prior to your last dose HDL > 40 Result Component 57( 11:45 AM CDT) No Yadi Muse MA Procedures Procedure Name Priority Date/Time Associated Diagnosis Comments ECHO COMPLETE Routine 06/05/2024 9:26 AM UTILIZATION MANAGER SVT (supraventricular tachycardia) (HCC) EKG 12-LEAD Routine 05/21/2024 9:32 AM UTILIZATION MANAGER SVT (supraventricular tachycardia) (HCC) COMPREHENSIVE METABOLIC PANEL Routine 10/08/2023 11:45 AM CDT Diabetes mellitus screening HEPATITIS C AB SCREEN RFLX NAAT QUANT STAT 10/30/2018 4:59 PM CDT DEXA BONE DENSITY 2 SITES Routine 12/13/2010 5:42 PM CDT Unspecified vitamin D deficiency Asymptomatic postmenopausal status (age-related) (natural) from Last 3 Months or Most Recently Relevant to Health Maintenance Results * ECHO COMPLETE (06/05/2024 9:26 AM UTILIZATION MANAGER) IVSd 2D 1.427 cm SSM CV FUJ I PACS LVIDd 3.461 cm SSM CV FUJ I PACS LVIDs 2.117 cm SSM CV FUJ I PACS LVOT diam 1.999 cm SSM CV FUJ I PACS LVPWd 1.192 cm SSM CV FUJ I PACS LV biplane EF 71.488 % SSM CV FUJI PACS LV A2C EF 71.111 % SSM CV FUJ I PACS LV A4C EF 71.333 % SSM CV FUJ I PACS LV EDV A2C 48.797 ml SSM CV FU JI PACS LV EDV A4C 61.261 ml SSM CV FU JI PACS LV ESV A2C 14.097 ml SSM CV FU JI PACS LV ESV A4C 17.562 ml SSM CV FU JI PACS LVOT pk milton 79.539 cm/s SSM CV F UJI PACS LVOT VTI 23.007 cm SSM CV FUJ I PACS LA size 3.057 cm SSM CV FUJ I PACS LA vol BP 41.782 ml SSM CV FUJ I PACS RA area 13.221 cm SSM CV FUJI PACS AV mn grad 2.285 mmHg SSM CV FU JI PACS AV pk milton 107.834 cm/s SSM CV FUJ I PACS AV VTI 26.102 cm SSM CV FUJ I PACS MV A pk milton 85.13 cm/s SSM CV F UJI PACS MV E pk milton 77.294 cm/s SSM CV F UJI PACS MV E' lateral milton 9.663 cm/s SS M CV FUJI PACS TAPSE 1.791 cm SSM CV FUJ I PACS TR pk milton 242.631 cm/s SSM CV FUJ I PACS Ascending aorta 2.704 cm SSM CV FUJI PACS IVC Diam Expiration 1.399 cm SSM CV FUJI PACS LA vol index 0.025 l/m SSM CV FUJI PACS Dimensionless Index 0.881 unitless SSM CV FUJI PACS Myocardial strain charge 2 unitless SSM CV FUJI PACS Anatomical Region Laterality Modality Ultrasound 06/05/2024 10:0 6 AM UTILIZATION MANAGER Narrative 06/05/2024 12:27 PM UTILIZATION MANAGER Summary * The left ventricle is normal in size. * Left ventricular systolic function is normal with an estimated ejection fraction of 60%. * The left ventricular diastolic function is normal. * Left ventricular segmental wall motion is normal. * Moderate, discrete upper septal hypertrophy, 1.4cm. * There is mild mitral valve regurgitation. * There is mild tricuspid valve regurgitation. * The left atrium is normal in size. * The pulmonary artery systolic pressure is normal. Patient Info Name: Siddhartha Marti Age: 74 years : 1950 Gender: Female Ht: 59 in Wt: 147 lb BSA: 1.69 m2 HR: 61 bpm BP: 144 / 90 mmHg Exam Date: 06/05/2024 10:06 AM Patient Status: O/P Study Site: [facility] Primary Location: [facility] EStudy Info Technical Quality: Good Exam Type: ECHO COMPLETE Indications I47.10 - SVT (supraventricular tachycardia) (HCC) Procedure(s) * A complete 2D, color Doppler, spectral Doppler, and M-Mode transthoracic echocardiogram was performed. * Parasternal long axis, Parasternal short axis, Apical 4 chamber view, Apical 2 chamber view, Apical long axis, Subcostal 4 chamber view and Suprasternal view(s) obtained during the procedure. Staff Referring Physician: Zane Mejía Ordering Provider: Zane Mejía Attending Physician: Zane Mejía Tank Builder Supervisor: Ericka Keys Left Ventricle The left ventricle is normal in size. Left ventricular segmental wall motion is normal. The left ventricular diastolic function is normal. Left ventricular systolic function is normal with an estimated ejection fraction of 60%. Moderate, discrete upper septal hypertrophy, 1.4cm. Right Ventricle The right ventricle is normal in size. Right ventricular systolic function is normal. Left Atrium The left atrium is normal in size. Right Atrium The right atrium is normal in size. Atrial Septum Intact interatrial septum visualized by 2D and color Doppler imaging. Aortic Valve The aortic valve is trileaflet. There is no aortic valve stenosis. There is no aortic valve regurgitation. Pulmonic Valve The pulmonic valve is normal. There is trace pulmonic regurgitation. Mitral Valve The mitral valve is moderately thickened. There is no mitral valve stenosis. There is mild mitral valve regurgitation. Tricuspid Valve The tricuspid valve is normal. There is mild tricuspid valve regurgitation. The pulmonary artery systolic pressure is normal. Inferior Vena Cava The inferior vena cava is normal in size (< 2.1 cm). There is > 50% collapse of the IVC upon inspiration with an estimated right atrial pressure of 5 mmHg. Pericardium/Pleural There is no pericardial effusion. Aorta The aortic root at the sinus of Valsalva is normal in size. The ascending aorta is normal in size. Measurements Left Ventricular Outflow Tract Name Value Normal LVOT 2D LVOT Diameter 2.0 cm LVOT Area 3.1 cm2 LVOT Doppler LVOT Peak Velocity 0.8 m/s LVOT Peak Gradient 3 mmHg LVOT Mean Velocity 53.50 cm/s LVOT Mean Gradient 1 mmHg LVOT VTI 23.0 cm LVOT VTI/AV VTI Ratio 0.9 LVOT Stroke Volume 72 ml LVOT Stroke Volume Index 43 ml/m2 35-58 LVOT CO 4.4 l/min LVOT CI 2.6 l/min/m2 Pulmonic Valve Name Value Normal PV Doppler PV Accel Time 106.57 ms Mitral Valve Name Value Normal MV Doppler MV PHT 69 ms MV Area (PHT) 3.17 cm2 4.00-5.00 MV Diastolic Function MV E Peak Velocity 0.8 m/sec MV A Peak Velocity 0.9 m/sec MV E/A 0.9 MV Decel Time (PW) 239 ms MV Annular TDI MV Septal e' Velocity 6 cm/s >=8 MV E/e' (Septal) 12 <=8 MV Lateral e' Velocity 10 cm/s >=10 MV E/e' (Lateral) 8 <=8 MV e' Average 8 cm/s MV E/e' (Average) 10 Tricuspid Valve Name Value Normal TV Regurgitation Doppler TR Peak Velocity 2.4 m/s TR Peak Gradient 24 mmHg Estimated PAP/RSVP RA Pressure 5 mmHg <=5 PA Systolic Pressure 29 mmHg <35 RV Systolic Pressure 29 mmHg <36 TV Diastolic Function TV E Peak Velocity 0.3 m/sec TV Annular TDI TV Lateral Elaina s' Velocity 11 cm/s 10-19 Aorta Name Value Normal Ascending Aorta Ao Root Diameter (2D) 3.1 cm Ao Root Diam Index (2D) 1.8 cm/m2 Asc Ao Diameter 2.7 cm 1.9-3.5 Asc Ao Diameter Index 1.6 cm/m2 1.0-2.2 Venous Name Value Normal IVC/SVC IVC Diameter 1.4 cm <=2.1 Aortic Valve Name Value Normal AV 2D/MM AV Cusp Separation (2D) 1.8 cm AV Doppler AV Peak Velocity 1.08 m/s AV Peak Gradient 5 mmHg AV Mean Gradient 2 mmHg AV VTI 26 cm AV Area (Cont Eq VTI) 2.77 cm2 >=2.00 AV Area (Cont Eq Milton) 2.32 cm2 AV DI (VTI) 0.88 AV DI (Milton) 0.74 AV Regurgitation 2D LVOT Area 3.14 cm2 Ventricles Name Value Normal LV Dimensions 2D/MM IVS Diastolic Thickness (2D) 1.4 cm 0.6-0.9 LVID Diastole (2D) 3.5 cm 3.8-5.2 LVPW Diastolic Thickness (2D) 1.2 cm 0.6-0.9 LVID Systole (2D) 2.1 cm 2.2-3.5 LV Mass (2D Cubed) 153 g 67-162 LV Mass Index (2D Cubed) 91 g/m2 43-95 Relative Wall Thickness (2D) 0.69 <=0.42 LV Fractional Shortening/Ejection Fraction 2D/MM LV Fractional Shortening (2D) 39 % 27-45 LV EF (2D Teicholz) 70 % 54-74 LV Diastolic Volume (4C MOD) 61 ml LV EF (4C MOD) 71 % LV Diastolic Volume (2C MOD) 49 ml LV EF (2C MOD) 71 % LV Diastolic Volume (BP MOD) 55 ml 46-106 LV Diastolic Volume Index (BP MOD) 33 ml/m2 29-61 LV Systolic Volume (BP MOD) 16 ml 14-42 LV Systolic Volume Index (BP MOD) 9 ml/m2 8-24 LV EF (BP MOD) 71 % 54-74 LV Diastolic Length (4C) 7.1 cm LV Systolic Length (4C) 5.7 cm LV Stroke Volume (4C MOD) 44 ml RV Dimensions 2D/MM TAPSE 1.8 cm >=1.7 Atria Name Value Normal LA Dimensions LA Dimension (2D) 3.1 cm 2.7-3.8 LA Dimen Index (2D) 1.8 cm/m2 LA Volume (BP MOD) 42 ml LA Volume Index (BP MOD) 25 ml/m2 16-34 RA Dimensions RA Area (4C) 13 cm2 <=18 RA Area (4C) Index 8 cm2/m2 RA ESV (4C MOD) 31 ml 15-27 RA ESV Index (4C MOD) 18 ml/m2 16-34 Report Signatures Finalized by Zane Mejía on 06/05/2024 12:27 PM Procedure Note Zane Mejía MD - 06/05/2024 Summary * The left ventricle is normal in size. * Left ventricular systolic function is normal with an estimatedejection fraction of 60%. * The left ventricular diastolic function is normal. * Left ventricular segmental wall motion is normal. * Moderate, discrete upper septal hypertrophy, 1.4cm. * There is mild mitral valve regurgitation. * There is mild tricuspid valve regurgitation. * The left atrium is normal in size. * The pulmonary artery systolic pressure is normal. Patient Info Name: Siddhartha Marti Age: 74 years : 1950 Gender: Female Ht: 59 in Wt: 147 lb BSA: 1.69 m2 HR: 61 bpm BP: 144 / 90 mmHg Exam Date: 06/05/2024 10:06 AM Patient Status: O/P Study Site: [facility] Primary Location: [facility] EStudy Info Technical Quality: Good Exam Type: ECHO COMPLETE Indications I47.10 - SVT (supraventricular tachycardia) (HCC) Procedure(s) * A complete 2D, color Doppler, spectral Doppler, and M-Modetransthoracic echocardiogram was performed. * Parasternal long axis, Parasternal short axis, Apical 4 chamberview, Apical 2 chamber view, Apical long axis, Subcostal 4 chamber view and Suprasternal view(s) obtained during the procedure. Staff Referring Physician: Zane Mejía Ordering Provider: Zane Mejía Attending Physician: Zane Mejía Tank Builder Supervisor: Ericka Keys Left Ventricle The left ventricle is normal in size. Left ventricular segmental wallmotion is normal. The left ventricular diastolic function is normal. Leftventricular systolic function is normal with an estimated ejection fraction of 60%. Moderate, discrete upper septal hypertrophy, 1.4cm. Right Ventricle The right ventricle is normal in size. Right ventricular systolicfunction is normal. Left Atrium The left atrium is normal in size. Right Atrium The right atrium is normal in size. Atrial Septum Intact interatrial septum visualized by 2D and color Doppler imaging. Aortic Valve The aortic valve is trileaflet. There is no aortic valve stenosis. Thereis no aortic valve regurgitation. Pulmonic Valve The pulmonic valve is normal. There is trace pulmonic regurgitation. Mitral Valve The mitral valve is moderately thickened. There is no mitral valvestenosis. There is mild mitral valve regurgitation. Tricuspid Valve The tricuspid valve is normal. There is mild tricuspid valveregurgitation. The pulmonary artery systolic pressure is normal. Inferior Vena Cava The inferior vena cava is normal in size (< 2.1 cm). There is > 50%collapse of the IVC upon inspiration with an estimated right atrial pressure of 5mmHg. Pericardium/Pleural There is no pericardial effusion. Aorta The aortic root at the sinus of Valsalva is normal in size. Theascending aorta is normal in size. Measurements Left Ventricular Outflow Tract Name Value Normal LVOT 2D LVOT Diameter 2.0 cm LVOT Area 3.1 cm2 LVOT Doppler LVOT Peak Velocity 0.8 m/s LVOT Peak Gradient 3 mmHg LVOT Mean Velocity 53.50 cm/s LVOT Mean Gradient 1 mmHg LVOT VTI 23.0 cm LVOT VTI/AV VTI Ratio 0.9 LVOT Stroke Volume 72 ml LVOT Stroke Volume Index 43 ml/m2 35-58 LVOT CO 4.4 l/min LVOT CI 2.6 l/min/m2 Pulmonic Valve Name Value Normal PV Doppler PV Accel Time 106.57 ms Mitral Valve Name Value Normal MV Doppler MV PHT 69 ms MV Area (PHT) 3.17 cm2 4.00-5.00 MV Diastolic Function MV E Peak Velocity 0.8 m/sec MV A Peak Velocity 0.9 m/sec MV E/A 0.9 MV Decel Time (PW) 239 ms MV Annular TDI MV Septal e' Velocity 6 cm/s >=8 MV E/e' (Septal) 12 <=8 MV Lateral e' Velocity 10 cm/s >=10 MV E/e' (Lateral) 8 <=8 MV e' Average 8 cm/s MV E/e' (Average) 10 Tricuspid Valve Name Value Normal TV Regurgitation Doppler TR Peak Velocity 2.4 m/s TR Peak Gradient 24 mmHg Estimated PAP/RSVP RA Pressure 5 mmHg <=5 PA Systolic Pressure 29 mmHg <35 RV Systolic Pressure 29 mmHg <36 TV Diastolic Function TV E Peak Velocity 0.3 m/sec TV Annular TDI TV Lateral Elaina s' Velocity 11 cm/s 10-19 Aorta Name Value Normal Ascending Aorta Ao Root Diameter (2D) 3.1 cm Ao Root Diam Index (2D) 1.8 cm/m2 Asc Ao Diameter 2.7 cm 1.9-3.5 Asc Ao Diameter Index 1.6 cm/m2 1.0-2.2 Venous Name Value Normal IVC/SVC IVC Diameter 1.4 cm <=2.1 Aortic Valve Name Value Normal AV 2D/MM AV Cusp Separation (2D) 1.8 cm AV Doppler AV Peak Velocity 1.08 m/s AV Peak Gradient 5 mmHg AV Mean Gradient 2 mmHg AV VTI 26 cm AV Area (Cont Eq VTI) 2.77 cm2 >=2.00 AV Area (Cont Eq Milton) 2.32 cm2 AV DI (VTI) 0.88 AV DI (Milton) 0.74 AV Regurgitation 2D LVOT Area 3.14 cm2 Ventricles Name Value Normal LV Dimensions 2D/MM IVS Diastolic Thickness (2D) 1.4 cm 0.6-0.9 LVID Diastole (2D) 3.5 cm 3.8-5.2 LVPW Diastolic Thickness (2D) 1.2 cm 0.6-0.9 LVID Systole (2D) 2.1 cm 2.2-3.5 LV Mass (2D Cubed) 153 g 67-162 LV Mass Index (2D Cubed) 91 g/m2 43-95 Relative Wall Thickness (2D) 0.69 <=0.42 LV Fractional Shortening/Ejection Fraction 2D/MM LV Fractional Shortening (2D) 39 % 27-45 LV EF (2D Teicholz) 70 % 54-74 LV Diastolic Volume (4C MOD) 61 ml LV EF (4C MOD) 71 % LV Diastolic Volume (2C MOD) 49 ml LV EF (2C MOD) 71 % LV Diastolic Volume (BP MOD) 55 ml 46-106 LV Diastolic Volume Index (BP MOD) 33 ml/m2 29-61 LV Systolic Volume (BP MOD) 16 ml 14-42 LV Systolic Volume Index (BP MOD) 9 ml/m2 8-24 LV EF (BP MOD) 71 % 54-74 LV Diastolic Length (4C) 7.1 cm LV Systolic Length (4C) 5.7 cm LV Stroke Volume (4C MOD) 44 ml RV Dimensions 2D/MM TAPSE 1.8 cm >=1.7 Atria Name Value Normal LA Dimensions LA Dimension (2D) 3.1 cm 2.7-3.8 LA Dimen Index (2D) 1.8 cm/m2 LA Volume (BP MOD) 42 ml LA Volume Index (BP MOD) 25 ml/m2 16-34 RA Dimensions RA Area (4C) 13 cm2 <=18 RA Area (4C) Index 8 cm2/m2 RA ESV (4C MOD) 31 ml 15-27 RA ESV Index (4C MOD) 18 ml/m2 16-34 Report Signatures Finalized by Zane Mejía on 06/05/2024 12:27 PM Zane Mejía MD ECHO CUPID * EKG 12-LEAD (05/21/2024 9:[address] [facility]) Ventricular Rate 66 BPM [facility] Atrial Rate 66 BPM [facility] P-R Interval 190 ms [facility] QRS Duration ms 76 ms [facility] Q-T Interval ms 424 ms [facility] QTC Calculation (Bezet) 444 ms [facility] Calculated R [place] -41 degrees [facility] Calculated T [place] 11 degrees [facility] Interpretation EKG NORMAL SINUS RHYTHM LEFT AXIS DEVIATION ABNORMAL ECG Confirmed by MD Alfonzo, Zane ([id number]) on 05/21/2024 12:34:27 PM [facility] 05/21/2024 9:32 AM UTILIZATION MANAGER 05/21/2024 12:34 PM UTILIZATION MANAGER Zane Mejía MD ECG ORDERABLES [facility] * COMPREHENSIVE METABOLIC PANEL (10/08/2023 11:45 AM CDT) Glucose 88 70 - 99 mg/dL [facility] ACCOUNT BILL BUN 13 8 - 27 mg/dL [facility] ACCOUNT BILL Creatinine 0.83 0.57 - 1.00 mg/dL [facility] ACCOUNT BILL eGFR by CKD-EPI 73 >59 mL/min/1.7 3 [facility] ACCOUNT BILL BUN/Creatinine Ratio 16 12 - 28 [facility] ACCOUNT BILL Sodium 143 134 - 144 mmol/L [facility] ACCOUNT BILL Potassium 4.8 3.5 - 5.2 mmol/L [facility] ACCOUNT BILL Chloride 104 96 - 106 mmol/L [facility] ACCOUNT BILL CO2 24 20 - 29 mmol/L [facility] ACCOUNT BILL Calcium 10.0 8.7 - 10.3 mg/dL [facility] ACCOUNT BILL Protein Total 7.8 6.0 - 8.5 g/dL [facility] ACCOUNT BILL Albumin 4.4 3.8 - 4.8 g/dL [facility] ACCOUNT BILL Globulin Total 3.4 1.5 - 4.5 g/dL [facility] ACCOUNT BILL Albumin/Globulin Ratio 1.3 1.2 - 2.2 [facility] ACCOUNT BILL Bilirubin Total 0.5 0.0 - 1.2 mg/dL [facility] ACCOUNT BILL Alkaline Phosphatase 94 44 - 121 IU/L [facility] ACCOUNT BILL AST 26 0 - 40 IU/L [facility] ACCOUNT BILL ALT 16 0 - 32 IU/L [facility] ACCOUNT BILL Blood BLOOD SPECIMEN / Unknown 10/08/2023 11:45 AM CDT 10/08/2023 Narrative Resulting Agency Comment Lab Testing performed at: [facility] [address] [phone] Franci Rocha DO LAB - CHEMISTRY OR DERABLES [facility] ACCOUNT BILL [address] [place] [address] * HEPATITIS C AB SCREEN RFLX NAAT QUANT (10/30/2018 4:59 PM CDT) Hepatitis C Antibody Non-react shiva Non-reac tive 10/30/2018 5:42 PM CDT [facility] Comment: Hepatitis C Antibody screen indicates no serologic evidence of past or current infection with Hepatitis C Virus. Patients with unexplained liver disease who are immunocompromised or suspected of having acute Hepatitis C infection may benefit from Nucleic Acid Test (JOLANTA) for Hepatitis C Viral RNA to confirm Hepatitis C status. Blood BLOOD SPECIMEN / Unknown Venipuncture / Unknown 10/30/2018 4:59 PM CDT 10/30/2018 5:02 PM CDT Jos Moore MD LAB - CHEMISTRY ASHIA VELAZQUEZ [facility] Organization Address City/State/ZIP Co de Phone Number [address] [phone] * DEXA BONE DENSITY 2 SITES (12/13/2010 5:42 PM CDT) Anatomical Region Laterality Modality Other Narrative 12/13/2010 5:42 PM CDT Keenan Angulo MD 12/13/2010 5:42 PM [facility] BONE DENSITY REPORT Pt. Name: Siddhartha Marti Gender: female : 1950 Test Date: 12/13/2010 Referring Physician: Keenan Angulo MD Technologist: LASHAY Vera A Central DXA was performed today using a Hologic QDR Discovery C game farm helper. The images and data have been scanned. Images are of good technical quality. Areas studied: Spine 0.9; Lt. Hip -0.0; Rt. Hip -0.2; Lt. Fem Nec -0.1; Rt.Fem Nec 0.1; (with site T scores) Official T-score: --> -0.2 Interpretation: Normal Comments: Osteoporosis may be diagnosed in postmenopausal women and in men age 50 and older if the T-score of the lumbar spine, total hip or femoral neck is -2.5 or less. In certain circumstances the 33% radius may be utilized. A fragility fracture, regardless of T-score, should be considered diagnostic of osteoporosis (provided other causes of the fracture have been excluded). Recommendations: In general postmenopausal women should have a daily intake of 1,200 to 1,500 mg of calcium a day, and 800 IU of Vitamin D a day. A decision about when to add prescription therapy requires clinical correlation and may vary for any given individual patient. Fracture risk approximately doubles for every 1 SD decrease in BMD. The 2008 NOF suggests postmenopausal women and men age 50 and older presenting with the following should be considered for treatment: 1) A hip or vertebral (clinical or morphometric) fracture 2) Other prior fractures and low bone mass (T-score between -1 and -2.5 at the femoral neck, total hip or spine) 3) T-score < -2.5 at the femoral neck, total hip or spine after appropriate evaluation to exclude secondary causes 4) Low bone mass (T-score between -1.0 and -2.5 at the femoral neck, total hip or spine) and secondary causes associated with high risk of fracture (such as glucocorticoid use or total immobilization) 5) Low bone mass (T-score between -1.0 and -2.5 at the femoral neck, total hip or spine) and 10 year probability of hip fracture > 3% or a 10 year probability of any major osteoporosis-related fracture > 20% based on the [place] adapted WHO algorithm (available at www.shef.ac.uk/FRAX) 6) The FRAX analysis is not intended for use to monitor therapy, but rather to assist in the decision of whether to initiate therapy. Keenan Angulo MD 12/13/2010 5:41 PM Keenan Angulo MD Physician and Certified Clinical Vice President Of Talent Acquisition Procedure Note Fina Olivarez - 12/13/2010 2:27 PM CDT [facility] Medical group BONE DENSITY REPORT Pt. Name: Siddhartha Marti Gender: female : 1950 Test Date: 12/13/2010 Referring Physician: Keenan Angulo MD Technologist: LASHAY Vera A Central DXA was performed today using a HoloFiesta Frog QDR Discovery C game farm helper.The images and data have been scanned. Images are of good technicalquality. Areas studied: Spine 0.9; Lt. Hip -0.0; Rt. Hip-0.2; Lt. Fem Nec -0.1; Rt.Fem Nec 0.1; (with site T scores) Official T-score: --> -0.2 Interpretation: Normal Comments: Osteoporosis may be diagnosed in postmenopausal women and in men age 50and older if the T-score of the lumbar spine, total hip or femoral neck is-2.5 or less. In certain circumstances the 33% radius may be utilized. Afragility fracture, regardless of T-score, should be considered diagnosticof osteoporosis (provided other causes of the fracture have beenexcluded). Recommendations: In general postmenopausal women should have a dailyintake of 1,200 to 1,500 mg of calcium a day, and 800 IU of Vitamin D aday. A decision about when to add prescription therapy requires clinicalcorrelation and may vary for any given individual patient. Fracture riskapproximately doubles for every 1 SD decrease in BMD. The 2008 NOFsuggests postmenopausal women and men age 50 and older presenting with thefollowing should be considered for treatment: 1) A hip or vertebral (clinical or morphometric) fracture 2) Other prior fractures and low bone mass (T-score between -1 and -2.5 atthe femoral neck, total hip or spine) 3) T-score < -2.5 at the femoral neck, total hip or spine afterappropriate evaluation to exclude secondary causes 4) Low bone mass (T-score between -1.0 and -2.5 at the femoral neck,total hip or spine) and secondary causes associated with high risk offracture (such as glucocorticoid use or total immobilization) 5) Low bone mass (T-score between -1.0 and -2.5 at the femoral neck, totalhip or spine) and 10 year probability of hip fracture > 3% or a 10 yearprobability of any major osteoporosis-related fracture > 20% based on theU.S. adapted WHO algorithm (available at www.shef.ac.uk/FRAX) 6) The FRAX analysis is not intended for use to monitor therapy, butrather to assist in the decision of whether to initiate therapy. Keenan Angulo MD 12/13/2010 5:41 PM Keenan Angulo MD Physician and Certified Clinical Vice President Of Talent Acquisition Keenan Angulo MD DEXA ORDERABLES from Last 3 Months or Most Recently Relevant to Health Maintenance Advance Directives * Full Code (Latest Code Status on File) Date Activated Date Inactivated Comments 10/03/2021 11:50 AM * Full Code Date Activated Date Inactivated Comments 04/03/2021 11:55 AM 05/18/2021 6:48 AM * Full Code Date Activated Date Inactivated Comments 10/30/2018 10:36 PM 11/01/2018 4:00 PM Care Teams Director Of Recruiting Relationship Specialty Start Date End Date Franci Rocha DO [address] [place] [address] PCP - General Internal Medicine 03/25/20 Franci Rocha DO [address] [place] [address] PCP - Attributed-[facility] MA 05/06/20 Ivana Messina MD Otolaryngology 06/09/18 Yaima Crawford MD Neurology 06/09/18 Guillermo Bridges MD Resident Student Resident 06/22/19 Juanjose Lin DPM [address] [place] [address] [phone] Orthopedic 06/26/21
--- OUTSIDE RECORDS SUMMARY | 2024-06-27 07:33 | XMS_ITS | Clinical Summary ---
Author Organization [facility] Address [address] [place] [address] Care Team Providers Care Manager Data Center Name Role Phone Ivana Messina MD Unavailable Yaima Crawford MD Unavailable [phone] Guillermo Bridges MD Unavailable Unavailable Franci Rocha DO Primary Care Provider [phone] Franci Rocha DO Unavailable Juanjose Lin DPM Unavailable [phone] Source Comments [facility],non-owned Affiliates and Associated Physician Practices is amultiple site organization consisting of ambulatory clinics and hospital sitesin [place], [place], [place] and [place]. This disclosure is being madepursuant to the Care Everywhere program and may not contain all information available regarding this patient. Last updated 18.[facility] Allergies Active Allergy Reactions Criticality Noted Date [...] ABDOMINAL PAIN/SPASMS 180 tablet 05/10/2023 Active Nystop 831835 UNIT/GM powder APPLY TOPICALLY TO AFFECTED AREA [...] Irritative Dermatitis 07/23/2008 Overview (07/23/2008): From her jewlise H/O Previous Mastalgia 07/23/200810/19 Diverticulosis 07/23/2008 06/29/2021 Overview (07/23/2008): Colonoscopy 1998, 2007 Elective surgery for purpose s other than treating health conditions 07/23/2008 09/05/2008 Overview (02/03/2015): Removal of pigmented nevi from Lt shoulder 2000 Chronic Helicobacter pylori gastritis 07/23/2008 04/16/2011 Overview (02/03/2019): Endoscopy/colonoscopy 2001 IMO UPDT 02/03/2019 Nerve pain 01/24/2021 Encounters Date Type Department Care Team Description 06/27/2024 Refill [facility] - Internal Medicine [address] [facility] [place] [address] [place] [address] Franci Rocha, DO Refill Request 06/23/2024 Telephone [facility] [address] [place] [address] [address] [place] [address] Zane Mejía MD Update 06/05/2024 8:40 AM MOLDER SHOULDER PAD - 06/05/2024 11:59 PM MOLDER SHOULDER PAD Hospital Encounter [facility] [address] [place] [address], [address] [place] [address] Zane Mejía MD Discharge Disposition: Home or Self Care 05/21/2024 8:00 AM MOLDER SHOULDER PAD Office Visit [facility] [address] [place] [address] [address] [place] [address] Franci Rocha DO Friedman, Mark A, MD Essential hypertension (Primary Dx); SVT (supraventricular tachycardia) (HCC); Palpitations 05/13/2024 Patient Outreach [facility] - Care Coordination [address] [place] [phone] Shaneka Rodrigues Outreach Preventive Care 04/16/2024 9:00 AM MOLDER SHOULDER PAD Office Visit [facility] - GI [address] [facility] [place] [address] Andria Awad MD Colon cancer screening (Primary Dx) 04/16/2024 Travel 04/13/2024 10:40 AM MOLDER SHOULDER PAD Office Visit [facility] - Internal Medicine [address] [facility] [address] [place] [address] [place] [address] Franci Rocha DO SVT (supraventricular tachycardia) (HCC) (Primary Dx); Palpitations; Need for vaccination; Essential hypertension from Last 3 Months Immunizations Name Administration Dates Next Due COVID MODERNA 12+ yr 50mcg/0.5mL 04/13/2024 COVID PFIZER 12+YR 30MCG/0.3mL 04/08/2023 COVID PFIZER BIVALENT 12Y+ 30mcg/0.3ML 02/28/2022 Covid Moderna primary monova lent 12+ yr 0.5mL 03/23/2021,07/25/2020,06/27/2020 Covid Pfizer primary Monoval ent 12+ yr 0.3ml 10/03/2021 FLU VACCINE TRI IIV3 SPLIT P F IM (FLUVIRIN) 04/08/2013,04/10/2012 INFLUENZA A [id number] VACCINE 05/06/2009 INFLUENZA VACCINE 01/29/2024,,03/03/2020,2016,02/14/2011,02/01/2010,02/03/2009,0 01/06/2003 INFLUENZA [...] RECOM-TREJO, QUADR. (FLUBLOCK QUADRIVALENT; 18Y+) (RIV4) 06/09/2018 Family History Medical History Relation Name Comments Cancer - Lung Brother 1 smoker Cancer - Lung Brother 2 smoker Diabetes Father Kidney Disease Father Hypercholesterolemia Mother Breast Cancer after age 50 or unknown Other cousin x2 Aneurysm, Brain Sister 1 Hypercholesterolemia Sister 5 Aneurysm Sister 6 fatal brain Thyroid Disease Sister 7 Stroke Sister 8 Relation Name Status Comments Brother 1 Brother 2 Brother 3 Alive Brother 4 Alive Father (Age 42) kidney dis ease Mother Alive Other Sister 1 Sister 2 Alive Sister 3 Alive Sister 4 Alive Sister 5 Sister 6 Sister 7 Sister 8 half-sister Alive Social History Tobacco Use Types Packs/Day Years [...] Comments Blood Pressure 144/90 05/21/2024 8:12 AM MOLDER SHOULDER PAD Pulse 73 05/21/2024 8:12 AM MOLDER SHOULDER PAD Temperature 36.4 C (97.6 F) 04/16/2024 9:08 AM MOLDER SHOULDER PAD Respiratory Rate 16 10/16/2021 12:23 PM CDT Oxygen Saturation 99% 04/16/2024 9:08 AM MOLDER SHOULDER PAD Inhaled Oxygen Concentration - - Weight 67 kg (147 lb 9.6 oz) 05/21/2024 8:12 AM MOLDER SHOULDER PAD Height 149.9 cm (4' 11 ) 04/16/2024 9:08 AM MOLDER SHOULDER PAD Body Mass Index 29.81 04/16/2024 9:08 AM MOLDER SHOULDER PAD Plan of Treatment Upcoming Encounters Date Type Department Care Team (Latest Contact Info) Description 08/18/2024 12:00 PM CDT Hospital Encounter [facility] [address] [place] [phone] Susana Polo MD [facility] [place] [phone] Surgery General 08/18/2024 12:00 PM CDT - 08/18/2024 1:00 PM CDT Surgery [facility] [address] [place] [phone] Susana Polo MD [address] [place] [phone] COLONOSCOPY SCREEN w/ advanced endoscopist 10/19/2024 9:00 AM CDT Office Visit [facility] - Internal Medicine [address] [facility] [place] [address] [place] [address] Franci Rocha DO [address] [facility] [place] [phone] 11/19/2024 8:45 AM CDT Office Visit [facility] [address] [facility] [address] [place] [address] Zane Mejía MD [address] [place] [address] [address] [place] [address] 04/15/2025 8:30 AM MOLDER SHOULDER PAD Office Visit [facility] - GI [address] [facility] [place] [phone] Scheduled Procedures Name Priority Associated Diagnoses Date/Ti me COLONOSCOPY SCREEN History of colon polyps 08/18/2024 12:00 PM CDT Health Maintenance Due Date Last Done Comments DEPRESSION SCREENING 05/06/2024 07/25/2023, 10/08/2022, 06/26/2021 MEDICARE AWV CALENDAR YEAR 2024 10/08/2023, 10/08/2022, 10/03/2021, Additional history exists SCREENING FOR DIABETES 10/07/2026 , 10/08/2023, 10/08/2022, Additional history exists DTAP/TDAP/TD VACCINES (4 - Td or Tdap) 12/09/2028 12/09/2018, 09/06/2008, 04/05/1998 BONE DENSITY TESTING Completed 12/13/2010, 09/08/19 08 PNEUMOCOCCAL VACCINE 50+ Completed 08/09/2014, 06/2013 ZOSTER VACCINE Completed 09/01/2018, 06/07, 07/04/2009 HEPATITIS C SCREENING Completed 10/30/2018 INFLUENZA VACCINE Completed 01/29/2024, , 04/08/2023, Additional history exists Respiratory Syncytial Virus (RSV) Vaccine Pt: or over 60 yrs Completed 01/29/2024 COVID-19 VACCINE Completed 04/13/2024, 08/2022, 02/28/2022, Additional history exists HEPATITIS B VACCINE Aged Out No longe r eligible based on patient's age to complete this topic HIB VACCINE Aged Out No longer eligi ble based on patient's age to complete this topic HPV VACCINE Aged Out No longer eligi ble based on patient's age to complete this topic MENINGOCOCCAL (Group B) VACCINE Aged Out No longer eligible based on patient's age to complete this topic MENINGOCOCCAL VACCINE Aged Out No asa emilia eligible based on patient's age to complete this topic Goals Goal Patient Goal Type Associated Problems Recent Progress Patient-Stated? Author Blood Pressure < 140/90 Blood Pressure 144/90(05/21 8:12 AM MOLDER SHOULDER PAD) No Yadi Muse MA Exercise 3X per week (30 min per time) Exercise Not on track(2014 10:01 AM MOLDER SHOULDER PAD) No Ydai Muse MA Medication Management General On track(2023 9:01 AM MOLDER SHOULDER PAD) No Keyona Spivey RN Note: Expected end date: Ongoing Interventions: Take all medications as prescribed Let your doctor know right away about any changes in your medications Make sure to request a refill of your medication at least one week prior to your last dose Medication Management General No Janae Elliott, ANIYA Note: Expected end date: oNGOING Interventions: Take [...] dose HDL > 40 Result Component 57( 4 11:45 AM CDT) No Yadi Muse MA Procedures Procedure Name Priority Date/Time Associated Diagnosis Comments ECHO COMPLETE Routine 06/05/2024 9:26 AM MOLDER SHOULDER PAD SVT (supraventricular tachycardia) (HCC) EKG 12-LEAD Routine 05/21/2024 9:32 AM MOLDER SHOULDER PAD SVT (supraventricular tachycardia) (HCC) COMPREHENSIVE METABOLIC PANEL [...] Results * ECHO COMPLETE (06/05/2024 9:26 AM MOLDER SHOULDER PAD) IVSd 2D 1.427 cm SSM CV FUJ [...] Laterality Modality Ultrasound 06/05/2024 10:0 6 AM MOLDER SHOULDER PAD Narrative 06/05/2024 12:27 PM MOLDER SHOULDER PAD Summary * The left ventricle is normal [...] 10:06 AM Patient Status: O/P Study Site: [facility] Primary Location: [facility] EStudy Info Technical Quality: Good Exam Type: [...] Provider: Zane Mejía Attending Physician: Zane Mejía Settlement Clerk: Ericka Keys Left Ventricle The left ventricle [...] 10:06 AM Patient Status: O/P Study Site: [facility] Primary Location: [facility] EStudy Info Technical Quality: Good Exam Type: [...] Provider: Zane Mejía Attending Physician: Zane Mejía Settlement Clerk: Ericka Keys Left Ventricle The left ventricle [...] CUPID * EKG 12-LEAD (05/21/2024 9:32 AM MOLDER SHOULDER PAD) Ventricular Rate 66 BPM [facility] Atrial Rate 66 BPM [facility] P-R Interval 190 ms [facility] QRS Duration ms 76 ms [facility] Q-T Interval ms 424 ms [facility] QTC Calculation (Bezet) 444 ms [facility] Calculated R [place] -41 degrees [facility] Calculated T [place] 11 degrees [facility] Interpretation EKG NORMAL SINUS RHYTHM LEFT AXIS DEVIATION ABNORMAL ECG Confirmed by MD Alfonzo, Zane ([id number]) on 05/21/2024 12:34:27 PM [facility] 05/21/2024 9:32 AM MOLDER SHOULDER PAD 05/21/2024 12:34 PM [facility] Zane Mejía MD ECG ORDERABLES [facility] MUSE * COMPREHENSIVE METABOLIC PANEL (10/08/2023 11:45 [...] Resulting Agency Comment [facility]: [facility] [address] [facility] [id number] Franci Rocha DO LAB - CHEMISTRY OR DERABLES [facility] ACCOUNT BILL [address] [place] [address] * HEPATITIS C AB SCREEN RFLX NAAT QUANT (10/30/2018 4:59 PM CDT) Hepatitis C Antibody Non-react shiva Non-reac tive 10/30/2018 5:42 PM CDT [facility] Comment: Hepatitis C Antibody screen [...] CDT Jos Moore MD LAB - CHEMISTRY ASHAI VELAZQUEZ [facility] Organization Address City/State/ZIP Co de Phone Number [place] [address] [place] [address], [facility] [phone] * DEXA BONE DENSITY 2 SITES (12/13/2010 5:42 PM CDT) Anatomical Region Laterality Modality Other Narrative 12/13/2010 5:42 PM CDT Keenan Angulo MD 12/13/2010 5:42 PM [facility] Medical group BONE DENSITY REPORT Pt. Name: Siddhartha Marti Gender: female : 1950 Test Date: 12/13/2010 Referring Physician: Keenan Angulo MD Technologist: LASHAY Vera A Central DXA was performed today using a [employer] QDR Discovery C service center assistant. The images and data have been scanned. [...] Keenan Angulo MD Physician and Certified Clinical Roustabout Hand Procedure Note Fina Olivarez - 12/13/2010 2:27 PM CDT [facility] Medical group BONE DENSITY REPORT Pt. Name: Siddhartha Marti Gender: female : 1950 Test Date: 12/13/2010 Referring Physician: Keenan Angulo MD Technologist: LASHAY Vera A Central DXA was performed today using a Hologic QDR Discovery C service center assistant.The images and data have been scanned. Images [...] Keenan Angulo MD Physician and Certified Clinical Roustabout Hand Keenan Angulo MD DEXA ORDERABLES from Last [...] 10:36 PM 11/01/2018 4:00 PM Care Teams Manager Data Center Relationship Specialty Start Date End Date Franci Rocha DO [address] [place] [address] PCP - General Internal Medicine 03/25/20 Franci Rocha DO [address] [place] [address] PCP - [facility] 05/06/20 Ivana Messina MD Otolaryngology 06/09/18 Yaima Crawford MD Neurology 06/09/18 Guillermo Bridges MD Resident Student Resident 06/22/19 Juanjose Lin, DPM [facility] [facility] [address] [place] [address] Orthopedic 06/26/21
--- OUTSIDE RECORDS SUMMARY | 2024-06-27 07:34 | XMS_ITS | Clinical Summary ---
Author Organization [address] Address [address] [place] [id number] Care Team Providers Care Client Customer Manager Name Role Phone Keenan Angulo MD Primary Care Provider [phone] Allergies Active Allergy Reactions Criticality Noted Date Comments Calcium Carbonate-Vitamin D3 Itching Medium 06/24/2009 Famotidine Itching Medium 10/08/2019 Fish Derived Itching,Swelling High 02/27/2021 Food Allergy Formula Anaphylaxis High 07/25/2023 seafood Irbesartan-Hydrochloro thiazide Nausea only Low 07/23/2008 Lovastatin Swelling High 07/23/2008 Pgajlduv-Vmyu-Qtu-Foli c Acid Itching,Swelling High 06/22/2019 Has iodine in it cannot have Nifedipine Dizziness High 07/23/2008 Dizziness Simvastatin Muscle pain Medium 07/23/2008 Topiramate Shortness of breath High 04/09/2018 Tramadol Hcl Other (See comments) Low 07/23/2008 Doesn't work well, no actual allergy Medications wheat dextrin (BENEFIBER CLEAR SF, DEXTRIN, ORAL) Take 1 each by mouth 2 (two) times a day Active amLODIPine (NORVASC) 5 mg tablet Take 1 tablet (5 mg total) by mouth 2 (two) times a day 3 Active dicyclomine (BENTYL) 20 mg tablet Take 1 tablet (20 mg total) by mouth every 6 (six) hours 4 Active EPINEPHrine 0.3 mg/0.3 mL auto-injection syringe Inject 0.3 mL (0.3 mg total) into the muscle as instructed daily as needed 4 Active HYDROcodone-lacey taminophen (NORCO) 5-325 mg per tablet Take 2 tablets by mouth every 6 (six) hours as needed 3 Active L. acidophilus/Bif id. animalis 32 billion cell capsule Take 1 capsule by mouth daily Active lubiprostone (AMITIZA) 8 mcg capsule Take 1 capsule (8 mcg total) by mouth every 48 hours 3 Active meloxicam (MOBIC) 7.5 mg tablet Take 1 tablet (7.5 mg total) by mouth daily 4 Active metoprolol tartrate (LOPRESSOR) 50 mg immediate release tablet Take 1 tablet (50 mg total) by mouth 2 (two) times a day 3 Active naproxen (NAPROSYN) 500 mg tablet Take 1 tablet (500 mg total) by mouth daily 4 Active Nystop powder APPLY TOPICALLY TO AFFECTED AREA TWICE DAILY NEEDED FOR SKIN RASH [address] (PROTONIX) 40 mg EC tablet Take 1 tablet (40 mg total) by mouth daily before breakfast 3 Active polyethylene glycol (MIRALAX) 17 gram packet Take 1 packet (17 g total) by mouth 2 (two) times a day Active rosuvastatin (CRESTOR) 5 mg tablet Take 1 tablet (5 mg total) by mouth nightly 3 Active ubidecarenone (COENZYME Q10, BULK, MISC) Take 200 mg by mouth nightly 2 Active tacrolimus (PROTOPIC) 0.03 % ointment Apply topically 2 (two) times a day Active Active Problems Problem Noted Date Diagnosed Date Dense breasts 07/10/2023 Elevated hemoglobin A1c 03/26/2022 Pre-diabetes 03/26/2022 Candidal dermatitis 10/09/2021 Chronic bilateral low back pain without sciatica 04/03/2021 Overweight 04/03/2021 Numbness and tingling of foot 01/24/2021 SVT (supraventricular tachycardia) 03/25/2020 Atherosclerosis of aorta 05/22/2019 Overview (08/07/2023): CT Abdomaen Pelvis 07/14/18 The noncontrast enhanced vascular structures demonstrate mild atherosclerosis noted throughout the abdominal aorta and iliac vessels. Iron deficiency anemia 10/30/2018 Overview (08/07/2023): -Small bowel GI bleed-resolved -area of erythema seen on capsule study -up to date with colonoscopy. -stop iron. Recheck level in 03/2022 Irritable bowel syndrome with constipation 10/30 Overview (08/07/2023): -GI: Dr. Guillermo Bridges -GI prescribed: lubiprostone and bentyl, and gabapentin for abdominal pain. 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 Resolved Problems Problem Noted Date Diagnosed Date Resolved Date Tear of medial meniscus of l eft knee, subsequent encounter 06/22/2019 08/07/2023 Medical History Medical History Date Comments Peripheral neuropathy Social History Tobacco Use Types Packs/Day Years Used Date Smoking Tobacco: Never Tobacco Cessation:Counseling Given: Not Answered Personal Safety Answer Date Recorded Getting School Help Needed Not on file 07/25 Comments Unknown Sex and Gender Information Value Date Recorded Sex Assigned at Not on file 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 Gender Identity Not on file Sexual Orientation Not on file Obstetrics History Last Filed Vital Signs Vital Sign Reading Time Taken Comments Blood Pressure 159/76 10/14/2023 2:28 PM CDT Pulse 78 10/14/2023 2:28 PM CDT Temperature - - Respiratory Rate - - Oxygen Saturation - - Inhaled Oxygen Concentration - - Weight 66.7 kg (147 lb 1.6 oz) 10/14/2023 2:28 P M CDT Height 151 cm (4' 11.45 ) 10/14/2023 2:28 PM CDT Body Mass Index 29.26 10/14/2023 2:28 PM CDT Plan of Treatment Health Maintenance Due Date Last Done Comments Depression Screening 1948 Fall Risk Assessment 1950 Hepatitis C Screening 1950 Osteoporosis Screening-Bone Density Scan 1948 Hepatitis B Screening 1966 Well Visit 65+ 2013 Covid-19 Vaccine (2023-2 5 season) 2024 04/08/2023, 02/28/2022, 10/03/2021, Additional history exists Influenza Vaccine (#1) 2024 , 03/15/2022, 02/06/2021, Additional history exists DTaP/Tdap/Td Vaccine (3 - Td or Tdap) 12/09/2028 12/09/2018, 09/06/2008, 04/05/1998 Pneumococcal vaccine 65+ Completed 08/09/2014, 06/2013 Zoster Vaccine Completed 09/01/2018, 06/07, 07/04/2009 Insurance [facility]ICARE [facility] Address: [address] [id number] Care Teams Client Customer Manager Relationship Specialty Start Date End Date Keenan Angulo MD [address] [place] [address] PCP - General 09/07/16
--- OUTSIDE RECORDS SUMMARY | 2024-06-27 07:34 | XMS_ITS | Encounter Summary ---
Author Organization [facility] Address [address] [facility] [address] Care Team Providers Care Meter Installer Name Role Phone Ivana Messina MD Unavailable [phone] Yaima Crawford MD Unavailable [phone] Guillermo Bridges MD Unavailable Unavailable Franci Rocha DO Primary Care Provider [phone] Franci Rocha DO Unavailable [phone] Juanjose Lin DP Unavailable Reason for Visit * Reason Comments Refill Request Encounter Details Date Type Department Care Team (Late st Contact Info) Description 06/27/[address] [facility] - Internal Medicine [address] [place] [address] Franci Rocha DO [address] [place] [address] Refill Request Social History Tobacco Use Types Packs/Day Years [...] No 05/18/2021 documented as of this encounter Plan of Treatment Upcoming Encounters Date Type Department Care Team (Latest Contact Info) Description 08/18/2024 12:00 PM CDT Hospital Encounter [facility] [address] [place] [address] Susana Polo MD [address] [place] [address] Surgery General 08/18/2024 12:00 PM CDT - 08/18/2024 1:00 PM CDT Surgery [facility] [address] [place] [address] Susana Polo MD [facility] [place] [address] COLONOSCOPY SCREEN w/ advanced endoscopist 10/19/2024 9:00 AM CDT Office Visit [facility] - Internal Medicine [address] [facility] [place] [address] Franci Rocha DO [address] [place] [phone] 11/19/2024 8:45 AM CDT Office Visit [facility] [address] [place] [address] [address] [place] [address] Zane Mejía MD [address] [place] [address] [address] [place] [address] 04/15/2025 8:30 AM PROFESSOR OF MARKETING Office Visit [facility] - [address] [place] [phone] Scheduled Procedures Name Priority Associated Diagnoses Date/Ti me COLONOSCOPY SCREEN History of colon polyps 08/18/2024 12:00 PM CDT documented as of this encounter Goals Goal Patient Goal Type Associated Problems Recent Progress Patient-Stated? Author Blood Pressure < 140/90 Blood Pressure 144/90(05/21 8:12 AM PROFESSOR OF MARKETING) No Yadi Muse MA Exercise 3X per week (30 min per time) Exercise Not on track(2014 10:01 AM PROFESSOR OF MARKETING) No Yadi Muse MA Medication Management General On track(2023 9:01 AM PROFESSOR OF MARKETING) No Keyona Spivey RN Note: Expected end date: Ongoing Interventions: Take all medications as prescribed Let your doctor know right away about any changes in your medications Make sure to request a refill of your medication at least one week prior to your last dose Medication Management General No Janae lEliott, ANIYA Note: Expected end date: oNGOING Interventions: [...] on filedocumented in this encounter Care Teams Meter Installer Relationship Specialty Start Date End Date Franci Rocha DO [address] [place] [address] PCP - General Internal Medicine 03/25/20 Franci Rocha DO [address] [place] [address] PCP - [facility] 05/06/20 Ivana Messina MD Otolaryngology 06/09/18 Yaima Crawford MD Neurology 06/09/18 Guillermo Bridges MD Resident Student Resident 06/22/19 Juanjose Lin, DPM [address] [facility] [place] [address] Orthopedic 06/26/21 documented as of this encounter
--- OUTSIDE RECORDS SUMMARY | 2024-06-27 07:34 | XMS_ITS | Referral Summary ---
Author Organization [address] Address [address] [place] [address] Care Team Providers Care Asset Protection Associate Name Role Phone Keenan Angulo MD Primary Care Provider [phone] Allergies Active Allergy Reactions Criticality Noted Date Comments Calcium Carbonate-Vitamin D3 Itching Medium 06/24/2009 Famotidine Itching Medium 10/08/2019 Fish Derived Itching,Swelling High 02/27/2021 Food Allergy Formula Anaphylaxis High 07/25/2023 seafood Irbesartan-Hydrochloro thiazide Nausea only Low 07/23/2008 Lovastatin Swelling High 07/23/2008 Osjvesfl-Qfdx-Yut-Foli c Acid Itching,Swelling High 06/22/2019 Has iodine [...] l eft knee, subsequent encounter 06/22/2019 08/07/2023 Social History Tobacco Use Types Packs/Day Years Used Date Smoking Tobacco: Never Tobacco Cessation:Counseling Given: Not Answered Personal Safety Answer Date Recorded Getting School Help Needed Not on file 07/25 Comments Unknown Sex and Gender Information Value Date Recorded Sex Assigned at Not on file 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
--- OUTSIDE RECORDS SUMMARY | 2024-06-27 07:34 | XMS_ITS | Patient Health Summary ---
Author Organization [facility] Address [address] [place] [address] Care Team Providers Care Refuse And Recycling Worker Name Role Phone Ivana Messina MD Unavailable Yaima Crawford MD Unavailable [phone] Guillermo Bridges MD Unavailable Unavailable Franci Rocha DO Primary Care Provider [phone] Franci Rocha DO Unavailable [phone] Juanjose Lin DPM Unavailable [phone] Note from [facility],non-owned Affiliates and Associated Physician Practices is amultiple site organization consisting of ambulatory clinics and hospital sitesin [place], [place] and [place]. This disclosure is being madepursuant to the Care Everywhere program and may not contain all information available regarding this patient. Last updated 18.[facility] Allergies * Irbesartan-Hydrochlorothiazide(Nausea) -Low Criticality * Fish Allergy(Itching,Swelling) -High Criticality * Food(Anaphylaxis) -High Criticality * Lovastatin(Swelling) -High Criticality * Nifedipine(Dizziness) -High Criticality * Calcium Carbonate-Vitamin D(Itching) -Medium Criticality * Pepcid(Itching) -Medium Criticality * Simvastatin(Myalgias) -Low Criticality * Topiramate(Shortness of Breath) -High Criticality * Tramadol Hcl(Other) -Low Criticality * Centrum(Itching,Swelling) -High Criticality,Inactive * Iodine(Anaphylaxis) -High Criticality,Inactive Medications * Be aware that medications may not be up to date on this document. Alwaysverify current medications with the patient. * polyethylene glycol 3350 (MIRALAX) packet Take 17 (seventeen) g by mouth 2 times daily * Wheat Dextrin (BENEFIBER DRINK MIX PO) Take 1 Each by mouth 2 times daily * Multiple Vitamins-Minerals (WOMENS MULTI VITAMIN & MINERAL PO) Take 1 tablet by mouth once daily Centrum * acetaminophen (TYLENOL) 325 MG tablet(Started 10/31/2018) Take 2 tablets by mouth every 4 hours as needed Maximum allowable Acetaminophen amount = 4 Grams (4000 mg) / 24 hours. * Probiotic Product (PROBIOTIC DAILY) capsule Take 1 (one) capsule by mouth once daily * Coenzyme Q10 200 MG(Started 10/03/2021) Take 1 (one) capsule by mouth every evening 4 refills by 10/03/2022 * zinc oxide (Sandra's) 40 % ointment(Started 10/08/2022) Apply to affected area as needed for Other (skin wound) 3 refills by 10/08/2023 * ibuprofen (Motrin) 800 MG tablet(Started 09/12/2022) Take 1 (one) tablet by mouth every 8 hours as needed For pain. * dicyclomine (Bentyl) 20 MG tablet(Started 05/10/2023) TAKE 1 TABLET BY MOUTH THREE TIMES DAILY NEEDED FOR ABDOMINAL PAIN/SPASMS * Nystop 199037 UNIT/GM powder(Started 06/24/2023) APPLY TOPICALLY TO AFFECTED AREA TWICE DAILY NEEDED FOR SKIN RASH * EPINEPHrine (Epipen) 0.3 MG/0.3ML auto-injector pen(Started 07/25/2023) Inject 0.3 mL into muscle once as needed for Anaphylaxis 1 refill by 07/24/2024 * amLODIPine (Norvasc) 5 MG tablet(Started 09/03/2023) Take 1 tablet by mouth twice daily 3 refills by 09/02/2024 * pantoprazole EC (Protonix) 40 MG tablet(Started 11/20/2023) TAKE 1 TABLET BY MOUTH ONCE DAILY BEFORE BREAKFAST 3 refills by 11/19/2024 * lubiprostone (Amitiza) 8 MCG CAPS capsule(Started 01/28/2024) TAKE 1 CAPSULE BY MOUTH EVERY 48 HOURS 6 refills by 01/27/2025 * meloxicam (Mobic) 7.5 MG tablet(Started 03/16/2024) Take 1 tablet by mouth once daily 3 refills by 03/16/2025 * tacrolimus (Protopic) 0.1 % ointment Apply to affected area 2 times daily * nebivolol (Bystolic) 20 MG tablet(Started 05/21/2024) Take 1 (one) tablet by mouth once daily 3 refills by 05/21/2025 * aspirin (Aspirin) 81 MG chew tablet(Started 05/21/2024) Take 1 (one) tablet by mouth once daily 4 refills by 05/21/2025 * rosuvastatin (Crestor) 10 MG tablet(Started 05/21/2024) Take 1 (one) tablet by mouth once daily 4 refills by 05/21/2025 Active Problems Problem Noted Date Diagnosed Date [...] subsequent encounter 06/22/2019 Atherosclerosis of aorta 05/22/2019 Iron deficiency anemia 10/30/2018 Irritable bowel syndrome with constipation 10/30 Hyperlipidemia 07/03/2017 Essential hypertension 08/09/2015 DJD (degenerative joint disease), cervical 03/03 Vitamin D deficiency 09/06/2008 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 Seafood allergy 07/23/2008 Resolved Problems Problem Noted Date Diagnosed Date Resolved Date Healthcare maintenance 04/03/202110/07 Pain and swelling of right wrist 01/24/2021 10/09/2021 Irritable bowel syndrome with constipation 10/19/2020 04/03/2021 Left lower quadrant abdominal pain 03/25/2020 10/19/2020 Colon polyp 11/05/2018 10/19/2020 Left shoulder pain 10/28/2009 H/O Irritative Dermatitis 07/23/2008 H/O Previous Mastalgia 07/23/200810/19 Diverticulosis 07/23/2008 06/29/2021 Elective surgery for purpose s other than treating health conditions 07/23/2008 09/05/2008 Chronic Helicobacter pylori gastritis 07/23/2008 04/16/2011 Nerve pain 01/24/2021 Immunizations * COVID MODERNA 12+ yr 50mcg/0.5mL(Given 04/13/2024) * COVID PFIZER 12+YR 30MCG/0.3mL(Given 04/08/2023) * COVID PFIZER BIVALENT 12Y+ 30mcg/0.3ML(Given 02/28/2022) * Covid Moderna primary monovalent 12+ yr 0.5mL(Given 03/23/2021, 07/25/2020, 06/27/2020) * Covid Pfizer primary Monovalent 12+ yr 0.3ml(Given 10/03/2021) * FLU VACCINE TRI IIV3 SPLIT PF IM (FLUVIRIN)(Given 04/08/2013, 04/10/2012) * INFLUENZA A D0B1-46 VACCINE(Given 05/06/2009) * INFLUENZA VACCINE(Given 01/29/2024, 02/03/2021, 03/03/2020, 04/01/2017, 02/14/2011, 02/01/2010, 02/03/2009, 01/06/2003) * INFLUENZA VACCINE, ADJUVANTED, QUADR. (FLUAD QUADRIVALENT; 65Y+) (AIIV4)(Given 04/08/2023, 03/15/2022) * INFLUENZA VACCINE, HIGH-DOSE, QUADR. (FLUZONE HIGH-DOSE QUADRIVALENT; 65Y+), 0.7 ML (HD-IIV4)(Given 02/06/2021, 01/28/2020, 04/01/2017) * INFLUENZA VACCINE, HIGH-DOSE, TRIV. (FLUZONE HIGH-DOSE TRIVALENT; 65Y+) (HD-IIV3)(Given 01/29/2024) * INFLUENZA VACCINE, QUADR. (AFLURIA, FLUZONE QUADRIVALENT; 6MO+) (IIV4)(Given 02/08/2014) * INFLUENZA VACCINE, QUADR. (FLUZONE; FLULAVAL; FLUARIX; AFLURIA QUADRIVALENT; 6MO+), 0.5 ML (IIV4)(Given 04/10/2016, 04/05/2015) * PNEUMOCOCCAL PPSV23(Given 08/05/2013) * Pneumococcal Pcv13 Conj(Given 08/09/2014) * RSV AREXVY 60YR+ 0.5ML(Given 01/29/2024) * TD VACCINE(Given 04/05/1998) * TDAP (7yrs+)(Given 12/09/2018, 09/06/2008) * ZOSTER VACCINE, LIVE(Given 07/04/2009) * Zoster Hzv Vacc Recombinant Inj Im(Given 09/01/2018, 06/26/2018) * iNFLUENZA VACCINE, RECOM-TREJO, QUADR. (FLUBLOCK QUADRIVALENT; 18Y+) (RIV4)(Given 06/09/2018) Social History Tobacco Use Types Packs/Day Years [...] Comments Blood Pressure 144/90 05/21/2024 8:12 AM QUALITY CONTROL ASSOCIATE Pulse 73 05/21/2024 8:12 AM QUALITY CONTROL ASSOCIATE Temperature 36.4 C (97.6 F) 04/16/2024 9:08 AM QUALITY CONTROL ASSOCIATE Respiratory Rate 16 10/16/2021 12:23 PM CDT Oxygen Saturation 99% 04/16/2024 9:08 AM QUALITY CONTROL ASSOCIATE Inhaled Oxygen Concentration - - Weight 67 kg (147 lb 9.6 oz) 05/21/2024 8:12 AM QUALITY CONTROL ASSOCIATE Height 149.9 cm (4' 11 ) 04/16/2024 9:08 AM QUALITY CONTROL ASSOCIATE Body Mass Index 29.81 04/16/2024 9:08 AM QUALITY CONTROL ASSOCIATE Procedures * ECHO COMPLETE(Performed 06/05/2024) Performed for SVT (supraventricular tachycardia) (HCC) * EKG 12-LEAD(Performed 05/21/2024) Performed for SVT (supraventricular tachycardia) (HCC) * NM MYOCARD PERF REST STRESS(Performed 11/12/2023) Performed for Chest pressure * STRESS TEST(Performed 11/12/2023) Performed for Chest pain, unspecified type * EVENT MONITOR(Performed 10/16/2023) Performed for SVT (supraventricular tachycardia), Palpitations * CBC W AUTO DIFFERENTIAL(Performed 10/08/2023) Performed for Fatigue, unspecified type * VITAMIN D 25-HYDROXY(Performed 10/08/2023) Performed for Fatigue, unspecified type * FOLATE(Performed 10/08/2023) Performed for Fatigue, unspecified type * METHYLMALONIC ACID BLOOD(Performed 10/08/2023) Performed for Fatigue, unspecified type * TRANSFERRIN(Performed 10/08/2023) Performed for Fatigue, unspecified type * FERRITIN(Performed 10/08/2023) Performed for Fatigue, unspecified type * IRON + TIBC PANEL(Performed 10/08/2023) Performed for Fatigue, unspecified type * TSH HI LOW REFLEX FREE T4(Performed 10/08/2023) Performed for SVT (supraventricular tachycardia) * VITAMIN B6(Performed 10/08/2023) Performed for Other director long term care (current) drug therapy * VITAMIN B12(Performed 10/08/2023) Performed for Other director long term care (current) drug therapy * KAPPA/LAMBDA LITE CHAIN FREE URINE W RATIO(Performed 10/08/2023) Performed for Abnormal SPEP * KAPPA/LAMBDA LITE CHAIN FREE PANEL(Performed 10/08/2023) Performed for Abnormal SPEP * JAMA+PROTEIN ELECTROPHORESIS UR RANDOM(Performed 10/08/2023) Performed for Abnormal SPEP * JAMA+PROTEIN ELECTROPH BLOOD(Performed 10/08/2023) Performed for Abnormal SPEP * HEMOGLOBIN A1C(Performed 10/08/2023) Performed for Pre-diabetes * LIPID PROFILE(Performed 10/08/2023) Performed for Hyperlipidemia, unspecified hyperlipidemia type * COMPREHENSIVE METABOLIC PANEL(Performed 10/08/2023) Performed for Diabetes mellitus screening * US BREAST BILATERAL COMPLETE(Performed 09/05/2023) Performed for Encounter for breast cancer screening using non-mammogram modality, Dense breasts * MAMMOGRAM(Performed 06/25/2023) * VITAMIN B12(Performed 10/08/2022) Performed for Other care home (current) drug therapy * LIPID PROFILE(Performed 10/08/2022) Performed for Hyperlipidemia, unspecified hyperlipidemia type * COMPREHENSIVE METABOLIC PANEL(Performed 10/08/2022) Performed for Essential hypertension * TRANSFERRIN(Performed 10/08/2022) Performed for Iron deficiency anemia, unspecified iron deficiency anemia type * FERRITIN(Performed 10/08/2022) Performed for Iron deficiency anemia, unspecified iron deficiency anemia type * IRON + TIBC PANEL(Performed 10/08/2022) Performed for Iron deficiency anemia, unspecified iron deficiency anemia type * HEMOGLOBIN A1C(Performed 10/08/2022) Performed for Elevated hemoglobin A1c * MAMMOGRAM(Performed 04/02/2022) * HEMOGLOBIN A1C(Performed 03/08/2022) Performed for Candidal skin infection, Hyperglycemia * VITAMIN B6(Performed 03/08/2022) Performed for Other care home (current) drug therapy * KAPPA/LAMBDA LITE CHAIN FREE URINE W RATIO(Performed 10/12/2021) Performed for Elevated total protein * KAPPA/LAMBDA LITE CHAIN FREE PANEL(Performed 10/12/2021) Performed for Elevated total protein * JAMA+PROTEIN ELECTROPHORESIS UR RANDOM(Performed 10/12/2021) Performed for Elevated total protein * JAMA+PROTEIN ELECTROPH BLOOD(Performed 10/12/2021) Performed for Elevated total protein * TRANSFERRIN(Performed 10/03/2021) Performed for Iron deficiency anemia, unspecified iron deficiency anemia type * FERRITIN(Performed 10/03/2021) Performed for Iron deficiency anemia, unspecified iron deficiency anemia type * IRON + TIBC PANEL(Performed 10/03/2021) Performed for Iron deficiency anemia, unspecified iron deficiency anemia type * LIPID PROFILE REFLEX LDL DIRECT(Performed 10/03/2021) Performed for Screening, ischemic heart disease, Mixed hyperlipidemia * COMPREHENSIVE METABOLIC PANEL(Performed 10/03/2021) Performed for Essential hypertension * CBC W AUTO DIFFERENTIAL(Performed 10/03/2021) Performed for Iron deficiency anemia, unspecified iron deficiency anemia type * PATHOLOGY TISSUE(Performed 05/18/2021) Performed for History of colon polyps, High risk for colon cancer * COLONOSCOPY SCREEN(Performed 05/18/2021) Performed for History of colon polyps, High risk for colon cancer * ENDOSCOPY, COLON, DIAGNOSTIC(Performed 05/18/2021) * CYCLIC CITRUL PEPTIDE ANTIBODY IGG/IGA (CCP)(Performed 01/23/2021) Performed for Pain and swelling of right wrist * RHEUMATOID FACTOR BLOOD QUANTITATIVE(Performed 01/23/2021) Performed for Pain and swelling of right wrist * HEMOGLOBIN A1C(Performed 01/23/2021) Performed for Diabetes mellitus screening * COMPREHENSIVE METABOLIC PANEL(Performed 01/23/2021) Performed for Encounter for monitoring statin therapy, Essential hypertension * CBC W AUTO DIFFERENTIAL(Performed 01/23/2021) Performed for Iron deficiency anemia, unspecified iron deficiency anemia type * FERRITIN(Performed 01/23/2021) Performed for Iron deficiency anemia, unspecified iron deficiency anemia type * IRON + TRANSFERRIN PANEL(Performed 01/23/2021) Performed for Iron deficiency anemia, unspecified iron deficiency anemia type * TSH HI LOW REFLEX FREE T4(Performed 01/23/2021) Performed for Screening for thyroid disorder * C-REACTIVE PROTEIN(Performed 01/23/2021) Performed for Pain and swelling of right wrist * ERYTHROCYTE SEDIMENTATION RATE(Performed 01/23/2021) Performed for Pain and swelling of right wrist * FOLATE(Performed 01/23/2021) Performed for Numbness and tingling of foot * VITAMIN B12(Performed 01/23/2021) Performed for Numbness and tingling of foot * METHYLMALONIC ACID BLOOD(Performed 01/23/2021) Performed for Numbness and tingling of foot * URIC ACID BLOOD(Performed 01/23/2021) Performed for Gout, unspecified cause, unspecified chronicity, unspecified site * MAMMO BILAT SCREENING(Performed 12/23/2020) Performed for Screening mammogram, encounter for * IMAGING/RADIOLOGY/XRAY RESULTS ORDER(Performed 12/14/2020) * LIPID PROFILE(Performed 05/18/2020) * PAIN MANAGEMENT PROCEDURE TIME(Performed 05/11/2020) Performed for Muscle pain * PAIN MANAGEMENT PROCEDURE TIME(Performed 04/06/2020) Performed for Nerve pain * PAIN MANAGEMENT PROCEDURE TIME(Performed 02/24/2020) Performed for Muscle discomfort * CT ESOPHAGEAL CAPSULE ENDOSCOPY(Performed 02/10/2020) Performed for Other iron deficiency anemia * FERRITIN(Performed 01/12/2020) * IRON + TIBC PANEL(Performed 01/12/2020) * CBC W AUTO DIFFERENTIAL(Performed 01/12/2020) * FERRITIN (EXTERNAL RESULT ENTRY)(Performed 01/12/2020) * IRON/SATURATION (EXTERNAL RESULT ENTRY)(Performed 01/12/2020) * CBC W DIFF (EXTERNAL RESULT ENTRY)(Performed 01/12/2020) * PATHOLOGY TISSUE(Performed 12/21/2019) Performed for Other iron deficiency anemias * CT ED EGD FLEX TRANSORAL DX(Performed 12/21/2019) Performed for Other iron deficiency anemias * EGD(Performed 12/21/2019) * MAMMOGRAPHY ORDER(Performed 11/28/2019) * CT ABDOMEN PELVIS WO CONTRAST(Performed 07/09/2019) Performed for Epigastric abdominal pain, Abdominal pain, LUQ (left upper quadrant), Back pain, unspecified back location, unspecified back pain laterality, unspecified chronicity, Iron deficiency anemia, unspecified iron deficiency anemia type * IRON + TIBC PANEL(Performed 06/22/2019) * FERRITIN(Performed 06/22/2019) * COMPREHENSIVE METABOLIC PANEL(Performed 06/22/2019) Performed for Acute left-sided low back pain without sciatica * CBC W AUTO DIFFERENTIAL(Performed 06/22/2019) Performed for Acute left-sided low back pain without sciatica * XR LUMBAR SPINE 4VW OR MORE(Performed 06/22/2019) Performed for Acute left-sided low back pain without sciatica * PATHOLOGY TISSUE(Performed 05/12/2019) Performed for Tubulovillous adenoma of colon * CT COLONOSCOPY, DIAGNOSTIC(Performed 05/12/2019) Performed for Tubulovillous adenoma of colon * ENDOSCOPY, COLON, SCREENING(Performed 05/12/2019) * CARDIAC EKG ORDER(Performed 04/24/2019) * CARDIAC EKG ORDER(Performed 03/23/2019) * XR FOOT RIGHT 2VW(Performed 03/09/2019) Performed for Great toe pain, right * BASIC METABOLIC PANEL (CALCIUM TOTAL)(Performed 03/07/2019) Performed for Great toe pain, right, Cellulitis of right foot * URIC ACID BLOOD(Performed 03/07/2019) Performed for Great toe pain, right, Cellulitis of right foot * CBC W AUTO DIFFERENTIAL(Performed 03/07/2019) Performed for Great toe pain, right, Cellulitis of right foot * PAP IMAGE-GUIDED W HPV(Performed 01/20/2019) Performed for Women's annual routine gynecological examination, Smear, vaginal, as part of routine gynecological examination * HPV DETECTION HIGH RISK EARL(Performed 01/20/2019) Performed for Women's annual routine gynecological examination, Smear, vaginal, as part of routine gynecological examination * URINALYSIS MICROSCOPIC ONLY REFLEXED(Performed 12/09/2018) * VITAMIN D 25-HYDROXY(Performed 12/09/2018) Performed for Vitamin D deficiency * URINALYSIS REFLEX TO MICROSCOPIC NO CULTURE(Performed 12/09/2018) Performed for Well adult exam, Essential hypertension with goal blood pressure less than 130/80 * LIPID PROFILE REFLEX LDL DIRECT(Performed 12/09/2018) Performed for Well adult exam, Essential hypertension with goal blood pressure less than 130/80, Hyperlipidemia, unspecified hyperlipidemia type * CBC W AUTO DIFFERENTIAL(Performed 12/09/2018) Performed for Well adult exam, Blood loss anemia * COMPREHENSIVE METABOLIC PANEL(Performed 12/09/2018) Performed for Well adult exam * APHERESIS/TRANSFUSION ORDER(Performed 11/04/2018) * XR CHEST 1VW(Performed 11/01/2018) Performed for Abdominal pain, generalized * BASIC METABOLIC PANEL (CALCIUM TOTAL)(Performed 11/01/2018) Performed for Abdominal pain, generalized, Iron deficiency anemia, unspecified iron deficiency anemia type * CBC W AUTO DIFFERENTIAL(Performed 11/01/2018) Performed for Iron deficiency anemia, unspecified iron deficiency anemia type * XR CHEST 1VW(Performed 10/31/2018) Performed for Abdominal pain, generalized * CBC W/O DIFFERENTIAL(Performed 10/31/2018) Performed for Anemia, unspecified type * FOLATE(Performed 10/31/2018) Performed for Anemia, unspecified type * VITAMIN B12(Performed 10/31/2018) Performed for Anemia, unspecified type * TRANSFERRIN(Performed 10/31/2018) Performed for Anemia, unspecified type * IRON BLOOD(Performed 10/31/2018) Performed for Anemia, unspecified type * FERRITIN(Performed 10/31/2018) Performed for Anemia, unspecified type * LIPASE BLOOD(Performed 10/31/2018) Performed for Abdominal pain, generalized * CBC W/O DIFFERENTIAL(Performed 10/31/2018) Performed for Anemia, unspecified type * BASIC METABOLIC PANEL (CALCIUM TOTAL)(Performed 10/31/2018) * CBC W AUTO DIFFERENTIAL(Performed 10/30/2018) * OBTAIN CONSENT FOR TRANSFUSION(Performed 10/30/2018) * TROPONIN I(Performed 10/30/2018) * CBC W AUTO DIFFERENTIAL(Performed 10/30/2018) * EKG 12-LEAD(Performed 10/30/2018) Performed for Abdominal pain, generalized * EKG 12-LEAD(Performed 10/30/2018) Performed for Abdominal pain, generalized * URINALYSIS W/MICROSCOPIC NO CULTURE(Performed 10/30/2018) * PREPARE RBC LEUKOREDUCED UNIT(Performed 10/30/2018) * PREPARE RBC LEUKOREDUCED UNIT(Performed 10/30/2018) * PREPARE RBC LEUKOREDUCED UNIT(Performed 10/30/2018) * TYPE + SCREEN PANEL(Performed 10/30/2018) * COMPREHENSIVE METABOLIC PANEL(Performed 10/30/2018) * CT ABDOMEN PELVIS WO CONTRAST(Performed 10/30/2018) Performed for Abdominal pain, generalized * HEMOGLOBIN A1C(Performed 10/30/2018) * LACTIC ACID BLOOD(Performed 10/30/2018) * CBC W AUTO DIFFERENTIAL(Performed 10/30/2018) * HEPATITIS C AB SCREEN RFLX NAAT QUANT(Performed 10/30/2018) * PATHOLOGY TISSUE(Performed 10/28/2018) Performed for Tubulovillous adenoma of colon * COLONOSCOPY DIAGNOSTIC(Performed 10/28/2018) Performed for Tubulovillous adenoma of colon * ENDOSCOPY, COLON, DIAGNOSTIC(Performed 10/28/2018) * MAMMOGRAPHY ORDER(Performed 10/07/2018) * PATHOLOGY TISSUE EXAM (STL)(Performed 08/01/2018) Performed for Screening for colon cancer * COLONOSCOPY SUBMUCOSAL INJECTION(Performed 08/01/2018) Performed for Screening for colon cancer * COLONOSCOPY BIOPSY (ANY METHOD)(Performed 08/01/2018) Performed for Screening for colon cancer * COLONOSCOPY SCREEN(Performed 08/01/2018) Performed for Screening for colon cancer * ENDOSCOPY, COLON, SCREENING(Performed 08/01/2018) Performed for Screen for colon cancer * CBC W AUTO DIFFERENTIAL(Performed 07/18/2018) Performed for Anemia, unspecified type * CT ABDOMEN PELVIS WO CONTRAST(Performed 07/14/2018) Performed for Diverticulitis of colon * CBC W AUTO DIFFERENTIAL(Performed 07/11/2018) Performed for Diverticulitis of colon * CARDIAC EKG ORDER(Performed 07/11/2018) * TROPONIN I(Performed 07/10/2018) * XR CHEST 2VW(Performed 07/10/2018) Performed for Chest pain, unspecified type * TROPONIN I(Performed 07/10/2018) * COMPREHENSIVE METABOLIC PANEL(Performed 07/10/2018) * CBC W AUTO DIFFERENTIAL(Performed 07/10/2018) * EKG 12-LEAD(Performed 07/10/2018) Performed for Chest pain, unspecified type * MRI CERVICAL SPINE WO CONTRAST(Performed 04/18/2018) Performed for Dizziness * US ABDOMEN LIMITED(Performed 01/09/2018) Performed for Nausea without vomiting, Epigastric pain * LIPASE BLOOD(Performed 01/01/2018) Performed for Nausea without vomiting, Epigastric pain * AMYLASE BLOOD(Performed 01/01/2018) Performed for Nausea without vomiting, Epigastric pain * COMPREHENSIVE METABOLIC PANEL(Performed 01/01/2018) Performed for Nausea without vomiting, Epigastric pain * CBC W AUTO DIFFERENTIAL(Performed 01/01/2018) Performed for Nausea without vomiting, Epigastric pain * EKG 12-LEAD(Performed 01/01/2018) Performed for Essential hypertension with goal blood pressure less than 130/80, Epigastric pain * MRI ANGIO BRAIN ARTERIAL WO CONT(Performed 09/12/2017) Performed for Cerebrovascular accident (CVA) due to embolism of precerebral artery (HCC) * MRI ANGIO NECK WO CONTRAST(Performed 09/12/2017) Performed for Cerebrovascular accident (CVA) due to embolism of precerebral artery (HCC) * ECHOCARDIOGRAM 2D WITH DOPPLER(Performed 08/27/2017) Performed for Post concussion syndrome * HEMOGLOBIN A1C(Performed 08/20/2017) Performed for Post concussion syndrome * VITAMIN D 25-HYDROXY(Performed 07/03/2017) Performed for Vitamin D deficiency * URINALYSIS REFLEX TO MICROSCOPIC NO CULTURE(Performed 07/03/2017) Performed for Well adult exam, Essential hypertension with goal blood pressure less than 130/80 * LIPID PROFILE REFLEX LDL DIRECT(Performed 07/03/2017) Performed for Well adult exam, Hyperlipidemia, unspecified hyperlipidemia type * CBC W AUTO DIFFERENTIAL(Performed 07/03/2017) Performed for Well adult exam * COMPREHENSIVE METABOLIC PANEL(Performed 07/03/2017) Performed for Well adult exam * IMAGING/RADIOLOGY/XRAY RESULTS ORDER(Performed 02/23/2017) * LAB RESULTS ORDER(Performed 01/31/2017) * XR CHEST 2VW(Performed 08/20/2016) Performed for DE OLIVEIRA (dyspnea on exertion) * IMAGING/RADIOLOGY/XRAY RESULTS ORDER(Performed 08/20/2016) * URINALYSIS REFLEX TO MICROSCOPIC NO CULTURE(Performed 08/09/2016) Performed for Essential hypertension with goal blood pressure less than 130/80 * LIPID PROFILE REFLEX LDL DIRECT(Performed 08/09/2016) Performed for Hyperlipidemia, unspecified hyperlipidemia type * CBC W AUTO DIFFERENTIAL(Performed 08/09/2016) Performed for Essential hypertension with goal blood pressure less than 130/80 * COMPREHENSIVE METABOLIC PANEL(Performed 08/09/2016) Performed for Essential hypertension with goal blood pressure less than 130/80, Hyperlipidemia, unspecified hyperlipidemia type * EKG 12-LEAD(Performed 04/10/2016) Performed for Essential hypertension with goal blood pressure less than 130/80, DE OLIVEIRA (dyspnea on exertion), Hyperlipidemia, unspecified hyperlipidemia type * LAB RESULTS ORDER(Performed 04/10/2016) * MAMMOGRAPHY ORDER(Performed 03/01/2016) * IMAGING/RADIOLOGY/XRAY RESULTS ORDER(Performed 09/14/2015) * IMAGING/RADIOLOGY/XRAY RESULTS ORDER(Performed 08/10/2015) * XR KNEE LEFT 2VW OR LESS(Performed 08/10/2015) Performed for Chronic pain of left knee * URINALYSIS MICROSCOPIC ONLY REFLEXED(Performed 08/09/2015) * URINALYSIS W/MICROSCOPIC NO CULTURE(Performed 08/09/2015) * VITAMIN D 25-HYDROXY(Performed 08/09/2015) Performed for Vitamin D deficiency * LIPID PROFILE REFLEX LDL DIRECT(Performed 08/09/2015) Performed for Essential hypertension with goal blood pressure less than 130/80, Hyperlipidemia, unspecified hyperlipidemia type * CBC W AUTO DIFFERENTIAL(Performed 08/09/2015) Performed for Essential hypertension with goal blood pressure less than 130/80 * COMPREHENSIVE METABOLIC PANEL(Performed 08/09/2015) Performed for Essential hypertension with goal blood pressure less than 130/80 * MAMMO BILAT SCREENING(Performed 02/21/2015) * BASIC METABOLIC PANEL (CALCIUM TOTAL)(Performed 12/13/2014) Performed for Palpitations * TSH(Performed 12/13/2014) Performed for Palpitations * XR HIPS BILATERAL 2VW(Performed 08/17/2014) Performed for Hip pain, unspecified laterality * URINALYSIS MICROSCOPIC ONLY REFLEXED(Performed 08/09/2014) Performed for Hypertension * ADDY BLOOD SCREEN W/REFLEX TITER(Performed 08/09/2014) Performed for Screen for colon cancer * RHEUMATOID FACTOR BLOOD QUANTITATIVE(Performed 08/09/2014) Performed for Screen for colon cancer * C-REACTIVE PROTEIN(Performed 08/09/2014) Performed for Screen for colon cancer * ERYTHROCYTE SEDIMENTATION RATE(Performed 08/09/2014) Performed for Screen for colon cancer * URINALYSIS REFLEX TO MICROSCOPIC NO CULTURE(Performed 08/09/2014) Performed for Hypertension * VITAMIN D 25-HYDROXY(Performed 08/09/2014) Performed for Unspecified vitamin D deficiency * LIPID PROFILE W LDL/HDL RATIO(Performed 08/09/2014) Performed for Other and unspecified hyperlipidemia * CBC W AUTO DIFFERENTIAL(Performed 08/09/2014) Performed for Hypertension, Other and unspecified hyperlipidemia * COMPREHENSIVE METABOLIC PANEL(Performed 08/09/2014) Performed for Hypertension * MAMMO BILAT SCREENING(Performed 02/19/2014) Performed for Need for prophylactic vaccination and inoculation against influenza * CT ABDOMEN PELVIS WO CONTRAST(Performed 11/21/2013) * XR ABD OBSTRUCTION SERIES 2VW(Performed 11/18/2013) Performed for Constipation * URINALYSIS MICROSCOPIC ONLY REFLEXED(Performed 04/08/2013) Performed for Hypertension * URINALYSIS REFLEX TO MICROSCOPIC NO CULTURE(Performed 04/08/2013) Performed for Hypertension * VITAMIN D 25-HYDROXY(Performed 04/08/2013) Performed for Unspecified vitamin D deficiency * LIPID PROFILE W LDL/HDL RATIO(Performed 04/08/2013) Performed for Other And Unspecified Hyperlipidemia * CBC W AUTO DIFFERENTIAL(Performed 04/08/2013) Performed for Other And Unspecified Hyperlipidemia * COMPREHENSIVE METABOLIC PANEL(Performed 04/08/2013) Performed for Hypertension * BASIC METABOLIC PANEL (CALCIUM TOTAL)(Performed 04/10/2012) Performed for Hypertension, Other and unspecified hyperlipidemia * LIPID PROFILE W LDL/HDL RATIO(Performed 04/10/2012) Performed for Hypertension, Other and unspecified hyperlipidemia * ALT(Performed 04/10/2012) Performed for Hypertension, Other and unspecified hyperlipidemia * TSH(Performed 12/05/2011) Performed for Hypertension, Palpitations * BASIC METABOLIC PANEL (CALCIUM TOTAL)(Performed 12/05/2011) Performed for Hypertension, Palpitations * EKG 12-LEAD(Performed 12/05/2011) Performed for Hypertension, Palpitations * MAMMO BILAT SCREENING(Performed 10/05/2011) * URINE MICROSCOPIC ONLY(Performed 08/06/2011) Performed for Hypertension * URINALYSIS REFLEX TO MICROSCOPIC NO CULTURE(Performed 08/06/2011) Performed for Hypertension * VITAMIN D 25-HYDROXY(Performed 08/06/2011) Performed for Unspecified vitamin D deficiency * LIPID PROFILE W LDL/HDL RATIO(Performed 08/06/2011) Performed for Hypertension, Other and unspecified hyperlipidemia * CBC W AUTO DIFFERENTIAL(Performed 08/06/2011) Performed for Hypertension * COMPREHENSIVE METABOLIC PANEL(Performed 08/06/2011) Performed for Hypertension * DEXA BONE DENSITY 2 SITES(Performed 12/13/2010) Performed for Unspecified vitamin D deficiency, Asymptomatic postmenopausal status (age-related) (natural) * URINE MICROSCOPIC ONLY(Performed 08/04/2010) Performed for Hypertension * URINALYSIS REFLEX TO MICROSCOPIC NO CULTURE(Performed 08/04/2010) Performed for Hypertension * VITAMIN D 25-HYDROXY(Performed 08/04/2010) Performed for Unspecified vitamin D deficiency * ALT(Performed 08/04/2010) Performed for Hypertension, Other and unspecified hyperlipidemia * BASIC METABOLIC PANEL (CALCIUM TOTAL)(Performed 08/04/2010) Performed for Hypertension * LIPID PROFILE(Performed 08/04/2010) Performed for Hypertension, Other and unspecified hyperlipidemia * MAMMO BILAT SCREENING(Performed 05/16/2010) Performed for Other screening mammogram * MRI CERVICAL SPINE WO CONTRAST(Performed 01/26/2010) Performed for Cervicalgia * MRI SHOULDER LEFT WO CONTRAST(Performed 01/06/2010) Performed for Unspecified Disorders of Bursae and Tendons in Shoulder Region * BASIC METABOLIC PANEL (CALCIUM TOTAL)(Performed 10/28/2009) Performed for Other And Unspecified Hyperlipidemia * ALT(Performed 10/28/2009) Performed for Other And Unspecified Hyperlipidemia * VITAMIN D 25-HYDROXY(Performed 10/28/2009) Performed for Unspecified Vitamin D Deficiency * LIPID PROFILE W LDL/HDL RATIO(Performed 10/28/2009) Performed for Other And Unspecified Hyperlipidemia * XR CHEST 2VW(Performed 06/25/2009) Performed for Cough, Acute Bronchitis * MAMMO BILAT SCREENING(Performed 05/11/2009) Performed for Other Screening Mammogram * URINALYSIS REFLEX TO MICROSCOPIC NO CULTURE(Performed 01/06/2009) Performed for Hypertension * LIPID PROFILE W LDL/HDL RATIO(Performed 01/06/2009) Performed for Hypertension * CBC W AUTO DIFFERENTIAL(Performed 01/06/2009) Performed for Hypertension * COMPREHENSIVE METABOLIC PANEL(Performed 01/06/2009) Performed for Hypertension * VITAMIN D 25-HYDROXY(Performed 01/06/2009) Performed for Unspecified Vitamin D Deficiency Results * ECHO COMPLETE (06/05/2024 9:26 AM QUALITY CONTROL ASSOCIATE) IVSd 2D 1.427 cm SSM CV FUJ [...] SSM CV FU JI PACS LVOT pk susana 79.539 cm/s SSM CV F UJI PACS LVOT VTI 23.007 cm SSM CV FUJ I PACS LA size 3.057 cm SSM CV FUJ I PACS LA vol BP 41.782 ml SSM CV FUJ I PACS RA area 13.221 cm SSM CV FUJI PACS AV mn grad 2.285 mmHg SSM CV FU JI PACS AV pk susana 107.834 cm/s SSM CV FUJ I PACS AV VTI 26.102 cm SSM CV FUJ I PACS MV A pk susana 85.13 cm/s SSM CV F UJI PACS MV E pk susana 77.294 cm/s SSM CV F UJI PACS MV E' lateral susana 9.663 cm/s SS M CV FUJI PACS TAPSE 1.791 cm SSM CV FUJ I PACS TR pk susana 242.631 cm/s SSM CV FUJ I PACS Ascending aorta 2.704 cm SSM CV FUJI PACS IVC Diam Expiration 1.399 cm SSM CV FUJI PACS LA vol index 0.025 l/m SSM CV FUJI PACS Dimensionless Index 0.881 unitless SSM CV FUJI PACS Myocardial strain charge 2 unitless SSM CV FUJI PACS Anatomical Region Laterality Modality Ultrasound 06/05/2024 10:0 6 AM QUALITY CONTROL ASSOCIATE Narrative 06/05/2024 12:27 PM QUALITY CONTROL ASSOCIATE Summary * The left ventricle is normal [...] pressure is normal. Patient Info Name: Siddhartha Brown Age: 74 years : 1950 Gender: Female Ht: 59 in Wt: 147 lb BSA: 1.69 m2 HR: 61 bpm BP: 144 / 90 mmHg Exam Date: 06/05/2024 10:06 AM Patient Status: O/P Study Site: [facility] Primary Location: [facility] EStudy Info Technical Quality: Good Exam Type: [...] Provider: Zane Mejía Attending Physician: Zane Mejía Bad Credit Collector: Ericka Keys Left Ventricle The left ventricle [...] 2.77 cm2 >=2.00 AV Area (Cont Eq Susana) 2.32 cm2 AV DI (VTI) 0.88 AV DI (Susana) 0.74 AV Regurgitation 2D LVOT Area 3.14 [...] pressure is normal. Patient Info Name: Siddhartha Brown Age: 74 years : 1950 Gender: Female Ht: 59 in Wt: 147 lb BSA: 1.69 m2 HR: 61 bpm BP: 144 / 90 mmHg Exam Date: 06/05/2024 10:06 AM Patient Status: O/P Study Site: [facility] E[facility] Info Technical Quality: Good Exam Type: [...] Provider: Zane Mejía Attending Physician: Zane Mejía Bad Credit Collector: Ericka Keys Left Ventricle The left ventricle [...] 2.77 cm2 >=2.00 AV Area (Cont Eq Susana) 2.32 cm2 AV DI (VTI) 0.88 AV DI (Susana) 0.74 AV Regurgitation 2D LVOT Area 3.14 [...] (2D) 39 % 27-45 LV EF (2D Teichkorinaz) 70 % 54-74 LV Diastolic Volume (4C [...] CUPID * EKG 12-LEAD (05/21/2024 9:32 AM QUALITY CONTROL ASSOCIATE) Only the most recent of7 resultswithin the time period is included. Ventricular Rate 66 BPM [facility] Atrial Rate 66 BPM [facility] P-R Interval 190 ms [facility] QRS Duration ms 76 ms [facility] Q-T Interval ms 424 ms [facility] QTC Calculation (Bezet) 444 ms [facility] Calculated R [place] -41 degrees [facility] Calculated T [place] 11 degrees [facility] Interpretation EKG NORMAL SINUS RHYTHM LEFT AXIS DEVIATION ABNORMAL ECG Confirmed by MD Alfonzo, Zane ([id number]) on 05/21/2024 12:34:27 PM [facility] MUSE 05/21/2024 9:32 AM QUALITY CONTROL ASSOCIATE 05/21/2024 12:34 PM QUALITY CONTROL ASSOCIATE Zane Mejía MD ECG ORDERABLES [facility] MUSE * NM MYOCARD PERF REST STRESS (11/12/2023 12:01 PM CDT) Anatomical Region Laterality Modality Chest Nuclear Medicine 11/12/2023 9:37 AM CDT Narrative Procedure Note Martha Ramirez, - 11/12/2023 [place] [address] Nuclear Myocardial Perfusion Scan Report Pat.Name: SIDDHARTHA BROWN Pat.ID: [id number] St.Date: 11/12/2023 Refer.MD: Franci Daigle Exam Time: 9:37:00 AM Study Type:Nuclear Myocardial Perfusion Scan Age: 1 1950,73Y Sex: FEMALE Race: 2 Visit ID: [id number] ++++++++++++++++++++++++++++++++++++ SUMMARY: ++++++++++++++++++++++++++++++++++++ FINDINGS: Myocardial perfusion imaging reveals normal distribution of the radiopharmaceutical isotope during the stress and rest imaging sets. Left ventricular cavity size appears normal in both imaging sets. Gated SPECT images reveal normal LV systolic function with a calculated ejection fraction of >75%. SUMMARY: 1. Normal myocardial perfusion study without evidence of ischemia. 2. Gated SPECT images demonstrate normal LV systolic function. Signed 11/12/2023 01:04 PM Martha Ramirez DO Franci Rocha DO NM ORDERABLES * STRESS TEST Pharm-Lexiscan (Regadenoson) (11/12/2023 10:46 AM CDT) Anatomical Region Laterality Modality Cardiac Electrop hysiology 11/12/2023 9:30 AM CDT Narrative 11/12/2023 6:15 PM CDT Patient Info Name: Siddhartha Brown Age: 73 years : 1950 Gender: Female Ht: 59 in Wt: 151 lb BSA: 1.72 m2 HR: 66 bpm BP: 152 / 62 mmHg Heart Rhythm: Sinus Rhythm Exam Date: 11/12/2023 9:30 AM Patient Status: O/P Study Site: [facility] Primary Location: [facility] EStudy Info Technical Quality: Good Exam Type: STRESS TEST Indications R07.9 - Chest pain, unspecified type Procedure(s) * Pharmacological stress test was performed. Staff Ordering Provider: Franci Daigle Nurse: Catie Nascimento Exercise Physician: Sandra Knutson Stress Staff: Maine Bhandari Nurse: Lon Garcia Recommendations * Nuclear perfusion images will be reported separately. Summary * Pharmacological stress test was performed. * Baseline ECG shows leftward axis and possible anterior infarct, age undetermined. * Normal sinus rhythm at rest. * No chest discomfort with stress test. * No arrhythmias were observed during the examination. * No ST changes of ischemia noted with Lexiscan. * Nuclear perfusion images will be reported separately. Protocol: Regadenoson Stress ECG Details Stage: Rest Duration (min): --- HR (bpm): 65 SBP (mmHg): 152 DBP (mmHg): 62 Symptoms: None Stage: 1 Duration (min): --- HR (bpm): 90 SBP (mmHg): 132 DBP (mmHg): 58 Symptoms: Shortness of breath Stage: 2 Duration (min): --- HR (bpm): 86 SBP (mmHg): 127 DBP (mmHg): 60 Symptoms: Shortness of breath Stage: 3 Duration (min): --- HR (bpm): 82 SBP (mmHg): 124 DBP (mmHg): 49 Symptoms: None Stage: 4 Duration (min): --- HR (bpm): 83 SBP (mmHg): 142 DBP (mmHg): 61 Symptoms: None Stage: 5 Duration (min): --- HR (bpm): 78 SBP (mmHg): 134 DBP (mmHg): 53 Symptoms: None BP Response: Normal blood pressure response Cardiac Symptoms: None Resting ECG Normal sinus rhythm at rest. LAD and Anterior infarct, age undetermined. Stress ECG Heart rate demonstrated a normal response to stress. A peak heart rate of 93 bpm was achieved. The patient's peak stress blood pressure was 152/62 mmHg. Arrhythmias No arrhythmias were observed during the examination. No ST changes of ischemia noted with Lexiscan. Termination Reason: Protocol completed Heart Rate Response : Resting HR (bpm): 66 : Peak HR (bpm): 93 : Max Predicted HR (bpm): 145 : % of Max Predicted HR: 64 % : Target HR (bpm): 123 Blood Pressure Response : Rest Sys. BP (mmHg): 152 : Rest Diast. BP (mmHg): 62 : Peak Sys. BP (mmHg): 152 : Peak Pagan. BP (mmHg): 62 : Max Rate Pressure Product (bpm*mmHg): 14,136 Medication Regadenoson Dose: 0.4 Report Signatures Finalized by Sandra Knutson on 11/12/2023 06:15 PM Stress Findings The target heart rate was 123 bpm. Procedure Note Sandra Knutson, DO - 11/15/2023 Patient Info Name: Siddhartha Brown Age: 73 years : 1950 Gender: Female Ht: 59 in Wt: 151 lb BSA: 1.72 m2 HR: 66 bpm BP: 152 / 62 mmHg Heart Rhythm: Sinus Rhythm Exam Date: 11/12/2023 9:30 AM Patient Status: O/P Study Site: [facility] Primary Location: [facility] EStudy Info Technical Quality: Good Exam Type: STRESS TEST Indications R07.9 - Chest pain, unspecified type Procedure(s) * Pharmacological stress test was performed. Staff Ordering Provider: Franci Daigle Nurse: Catie Nascimento Exercise Physician: Sandra Knutson Stress Staff: Maine Bhandari Nurse: Lon Garcia Recommendations * Nuclear perfusion images will be reported separately. Summary * Pharmacological stress test was performed. * Baseline ECG shows leftward axis and possible anterior infarct, age undetermined. * Normal sinus rhythm at rest. * No chest discomfort with stress test. * No arrhythmias were observed during the examination. * No ST changes of ischemia noted with Lexiscan. * Nuclear perfusion images will be reported separately. Protocol: Regadenoson Stress ECG Details Stage: Rest Duration (min): --- HR (bpm): 65 SBP (mmHg): 152 DBP (mmHg): 62 Symptoms: None Stage: 1 Duration (min): --- HR (bpm): 90 SBP (mmHg): 132 DBP (mmHg): 58 Symptoms: Shortness of breath Stage: 2 Duration (min): --- HR (bpm): 86 SBP (mmHg): 127 DBP (mmHg): 60 Symptoms: Shortness of breath Stage: 3 Duration (min): --- HR (bpm): 82 SBP (mmHg): 124 DBP (mmHg): 49 Symptoms: None Stage: 4 Duration (min): --- HR (bpm): 83 SBP (mmHg): 142 DBP (mmHg): 61 Symptoms: None Stage: 5 Duration (min): --- HR (bpm): 78 SBP (mmHg): 134 DBP (mmHg): 53 Symptoms: None BP Response: Normal blood pressure response Cardiac Symptoms: None Resting ECG Normal sinus rhythm at rest. LAD and Anterior infarct, ageundetermined. Stress ECG Heart rate demonstrated a normal response to stress. A peak heart rateof 93 bpm was achieved. The patient's peak stress blood pressure was 152/62mmHg. Arrhythmias No arrhythmias were observed during the examination. No ST changes of ischemia noted with Lexiscan. Termination Reason: Protocol completed Heart Rate Response : Resting HR (bpm): 66 : Peak HR (bpm): 93 : Max Predicted HR (bpm): 145 : % of Max Predicted HR: 64 % : Target HR (bpm): 123 Blood Pressure Response : Rest Sys. BP (mmHg): 152 : Rest Diast. BP (mmHg): 62 : Peak Sys. BP (mmHg): 152 : Peak Pagan. BP (mmHg): 62 : Max Rate Pressure Product (bpm*mmHg): 14,136 Medication Regadenoson Dose: 0.4 Report Signatures Finalized by Sandra Knutson on 11/12/2023 06:15 PM Franci Rocha DO CARDIAC SERVICES C UPID * EVENT MONITOR (10/16/2023 12:00 PM CDT) 10/16/2023 12:0 0 PM CDT Narrative Procedure Note Sandra Knutson DO - 10/16/2023 11:59 PM CDT [facility] Event Monitor Report PATIENT NAME: STEPHANIE MR#: [id number] SIDDHARTHA AGE: 73 CSN: [id number] : 1950 DATE OF ADMISSION: 10/16/2023 DATE OF PROCEDURE: 10/16/2023 ROOM#: REASON FOR TEST: SVT. FINDINGS: The patient was monitored for a total of 13 days. Average heart rateduring monitoring 78 beats per minute. Heart rate ranged from 59 beats perminute up to max heart rate of 120 beats per minute. There were no urgent oremergent events during monitoring. Single symptomatic event at which time thepatient had chest pain, the patient was in sinus rhythm with heart rate 78during symptoms. Otherwise, no significant arrhythmia detected. CONCLUSION: Sinus rhythm. Single episode of symptoms correlated with sinus rhythm.No significant arrhythmia. NAME: SIDDHARTHA BROWN DICTATOR: SANDRA KNUTSON DO DICTATED FOR: SMW/MODL JOB ID: [id number] Cardiac Catheterization Report Franci Rocha DO CARDIAC SERVICES O RDERABLES [facility] * KAPPA/LAMBDA LITE CHAIN FREE URINE W RATIO (10/08/2023 11:45 AM CDT) Only the most recent of2 resultswithin the time period is included. Free [place] Light Chains Urine 36.33 1.17 - 86.46 mg/L [facility] ACCOUNT BILL Free Lambda Light Chains Urine 7.77 0.27 - 15.21 mg/L [facility] ACCOUNT BILL [place]/Lambda Ratio Urine 4.68 1.83 - 14.26 [facility] ACCOUNT BILL Urine URINE SPECIMEN OBTAINED BY CLEAN CATCH PROCEDURE / Unknown 10/08/2023 11:45 AM CDT 10/08/2023 Narrative Resulting Agency Comment Lab Testing performed at: [facility] [address] [id number] Franci E Manjindersinger DO LAB - URINE CHEMIS TRY ORDERABLES Performing Organization Address City/[facility]/ZIP Co de Phone Number [facility] ACCOUNT BILL [address] [place] [address] * JAMA+PROTEIN ELECTROPHORESIS UR RANDOM (10/08/2023 11:45 AM CDT) Only the most recent of2 resultswithin the time period is included. Protein Urine 17.9 Not Estab. mg/dL [facility] ACCOUNT BILL Albumin % 24 Hour Urine 67.5 % [facility] ACCOUNT BILL Pgfiz-3-Skmmaxhk Urine 4.5 % [facility] ACCOUNT BILL Jgdlk-9-Yzeumaxx 24 Hour Urine 7.6 % [facility] ACCOUNT BILL Beta-Globulin Urine 12.6 % [facility] ACCOUNT BILL Gamma Globulin % Urine 7.8 % [facility] ACCOUNT BILL M-Scott % 24 Hour Urine Not Observed Not Observed % [facility] ACCOUNT BILL Immunofixation Result, 24 Hour Urine [facility] ACCOUNT BILL Comment:No monoclonality det ected. Note [facility] ACCOUNT BILL Comment: Protein electrophoresis scan will follow via computer, mail, or dietary manager delivery. Urine URINE SPECIMEN OBTAINED BY CLEAN CATCH PROCEDURE / Unknown 10/08/2023 11:45 AM CDT 10/08/2023 Narrative Resulting Agency Comment Lab Testing performed at: [facility] [place] [address] [facility] [facility] [id number] Franci E Bensinger DO LAB - URINE CHEMIS TRY ORDERABLES [facility] ACCOUNT BILL [address] [place] [address] * (ABNORMAL) JAMA+PROTEIN ELECTROPH BLOOD (10/08/2023 11:45 AM CDT) Only the most recent of2 resultswithin the time period is included. Pathologist [facility] IgG Quantitative 1,479 586 - 1,602 mg/dL [facility] ACCOUNT BILL IgA Quantitative 476(H) 64 - 422 mg/dL [facility] ACCOUNT BILL IgM Quantitative 171 26 - 217 mg/dL [facility] ACCOUNT BILL Albumin 3.9 2.9 - 4.4 g/dL [facility] ACCOUNT BILL Alpha-1 Globulin 0.3 0.0 - 0.4 g/dL [facility] ACCOUNT BILL Loujm-0-Etfznkls 0.8 0.4 - 1.0 g/dL [facility] ACCOUNT BILL Beta-Globulin 1.4(H) 0.7 - 1.3 g/dL [facility] ACCOUNT BILL Gamma Globulin 1.4 0.4 - 1.8 g/dL [facility] ACCOUNT BILL M-Scott Not Observed Not Observed g/dL [facility] ACCOUNT BILL Globulin Total 3.9 2.2 - 3.9 g/dL [facility] ACCOUNT BILL Albumin/Globulin Ratio 1.1 0.7 - 1.7 [facility] ACCOUNT BILL Immunofixation Result [facility] ACCOUNT BILL Comment:No monoclonality det ected. Please Note [facility] ACCOUNT BILL Comment: Protein electrophoresis scan will follow via computer, mail, or dietary manager delivery. Blood BLOOD SPECIMEN / Unknown 10/08/2023 11:45 AM CDT 10/08/2023 Narrative Resulting Agency Comment [facility] [address] [phone] Franci Rocha DO LAB - CHEMISTRY OR DERABLES [facility] ACCOUNT BILL [address] [place] [address] * TSH HI LOW REFLEX FREE T4 (10/08/2023 11:45 AM CDT) Only the most recent of2 resultswithin the time period is included. Pathologist [facility] TSH 1.750 0.450 - 4.500 uIU/mL [facility] ACCOUNT BILL Blood BLOOD SPECIMEN / Unknown 10/08/2023 11:45 AM CDT 10/08/2023 Narrative Resulting Agency Comment Lab Testing performed at: [facility] [address] [facility] [id number] Franci E Bensinger DO LAB - CHEMISTRY OR DERABLES Performing Organization Address [facility]/ZIP Co de Phone Number [facility] ACCOUNT BILL [address] [place] [address] * METHYLMALONIC ACID BLOOD (10/08/2023 11:45 AM CDT) Only the most recent of2 resultswithin the time period is included. Methylmalonic Acid 125 0 - 378 nmol/L [facility] ACCOUNT BILL Blood BLOOD SPECIMEN / Unknown 10/08/2023 11:45 AM CDT 10/08/2023 Narrative [facility] ACCOUNT BILL - 10/14/2023 1:08 PM CDT Test(s) 593795-Maszqfzhhlixi Acid, Serum was developed and its performance characteristics determined by [facility]. It has not been cleared or approved by the Food and Drug Administration. Resulting Agency Comment Lab Testing performed at: [facility] [address] [id number] Franci E Bensinger DO LAB - CHEMISTRY OR DERABLES Performing Organization Address [facility] Co de Phone Number [facility] ACCOUNT BILL [address] [place] [address] * TRANSFERRIN (10/08/2023 11:45 AM CDT) Only the most recent of4 resultswithin the time period is included. Transferrin 270 192 - 364 mg/dL [facility] ACCOUNT BILL Blood BLOOD SPECIMEN / Unknown 10/08/2023 11:45 AM CDT 10/08/2023 Narrative Resulting Agency Comment Lab Testing performed at: [facility] [address] [phone] Franci E Bensinger DO LAB - CHEMISTRY OR DERABLES Performing Organization Address City/[facility] Co de Phone Number [facility] ACCOUNT BILL [address] [place] [address] * VITAMIN B6 (10/08/2023 11:45 AM CDT) Only the most recent of2 resultswithin the time period is included. Vitamin B6 44.8 3.4 - 65.2 ug/L [facility] ACCOUNT BILL Comment: Deficiency: <3.4 Marginal: 3.4 - 5.1 Adequate: >5.1 Blood BLOOD SPECIMEN / Unknown 10/08/2023 11:45 AM CDT 10/08/2023 Narrative [facility] ACCOUNT BILL - 10/11/2023 1:09 PM CDT Test(s) 597660-Wktnxxn B6 was developed and its performance characteristics determined by [employer]. It has not been cleared or approved by the Food and Drug Administration. Resulting Agency Comment Lab Testing performed at: [facility] [employer] [address] [phone] Franci Rocha DO LAB - CHEMISTRY OR DERABLES Performing Organization Address City/[facility] Co de Phone Number [facility] ACCOUNT BILL [address] [place] [address] * HEMOGLOBIN A1C (HgbA1C) (10/08/2023 11:45 AM CDT) Only the most recent of6 resultswithin the time period is included. Hemoglobin A1c 5.6 4.8 - 5.6 % [facility] ACCOUNT BILL Comment: . Prediabetes: 5.7 - 6.4 Diabetes: >6.4 Glycemic control for adults with diabetes: <7.0 Blood BLOOD SPECIMEN / Unknown 10/08/2023 11:45 AM CDT 10/08/2023 Narrative Resulting Agency Comment [facility]: [facility] [address] [facility] [phone] Franci Rocha DO LAB - CHEMISTRY OR DERABLES Performing Organization Address City/[facility] Co de Phone Number [facility] ACCOUNT BILL [address] [place] [address] * VITAMIN D 25-HYDROXY (10/08/2023 11:45 AM CDT) Only the most recent of10 resultswithin the time period is included. Vitamin D, 25 Hydroxy 50.8 30.0 - 100.0 ng/mL [facility] ACCOUNT BILL Comment: Vitamin D deficiency has been defined by the [place] of Medicine and an Endocrine Society practice guideline as a level of serum 25-OH vitamin D less than 20 ng/mL (1,2). The Endocrine Society went on to further define vitamin D insufficiency as a level between 21 and 29 ng/mL (2). 1. IOM ([place] of Medicine). 2010. Dietary reference intakes for calcium and D. [place]: The National Academies Press. 2. Sang MF, Oneil BEARDEN, Kathryn TREJO, et al. Evaluation, treatment, and prevention of vitamin D deficiency: an Endocrine Society clinical practice guideline. JCEM. 2010; 96(7):1911-30. Blood BLOOD SPECIMEN / Unknown 10/08/2023 11:45 AM CDT 10/08/2023 Narrative Resulting Agency Comment Lab Testing performed at: [facility] [phone] Franci Rocha DO LAB - CHEMISTRY OR DERABLES [facility] ACCOUNT BILL [address] [place] [address] * (ABNORMAL) KAPPA/LAMBDA LITE CHAIN FREE PANEL (10/08/2023 11:45 AM CDT) Only the most recent of2 resultswithin the time period is included. Free [place] Light Chains 21.5(H) 3.3 - 19.4 mg/L [facility] ACCOUNT BILL Free Lambda Light Chains 16.4 5.7 - 26.3 mg/L [facility] ACCOUNT BILL [place]/Lambda Ratio 1.31 0.26 - 1.65 [facility] ACCOUNT BILL Blood BLOOD SPECIMEN / Unknown 10/08/2023 11:45 AM CDT 10/08/2023 Narrative Resulting Agency Comment Lab Testing performed at: [facility] [phone] Franci Rocha DO LAB - CHEMISTRY OR DERABLES [facility] ACCOUNT BILL [address] [place] [address] * CBC WITH DIFFERENTIAL (10/08/2023 11:45 AM CDT) Only the most recent of22 resultswithin the time period is included. WBC 6.5 3.4 - 10.8 x10E3/uL [facility] ACCOUNT BILL RBC 4.18 3.77 - 5.28 x10E6/uL [facility] ACCOUNT BILL Hemoglobin 12.9 11.1 - 15.9 g/dL [facility] ACCOUNT BILL Hematocrit 39.6 34.0 - 46.6 % [facility] ACCOUNT BILL MCV 95 79 - 97 fL [facility] ACCOUNT BILL MCH 30.9 26.6 - 33.0 pg [facility] ACCOUNT BILL MCHC 32.6 31.5 - 35.7 g/dL [facility] ACCOUNT BILL RDW 12.7 11.7 - 15.4 % [facility] ACCOUNT BILL Platelet Count 323 150 - 450 x10E3/uL [facility] ACCOUNT BILL Granulocytes % 53 Not Estab. % [facility] ACCOUNT BILL Lymphocytes % 37 Not Estab. % [facility] ACCOUNT BILL Monocytes % 7 Not Estab. % [facility] ACCOUNT BILL Eosinophils % 2 Not Estab. % [facility] ACCOUNT BILL Basophils % 1 Not Estab. % [facility] ACCOUNT BILL Immature Cells NOT AVAILABLE [facility] Comment:Result cannot be obt ained for this observation. Granulocytes Absolute 3.5 1.4 - 7.0 x10E3/uL [facility] ACCOUNT BILL Lymphocytes Absolute 2.4 0.7 - 3.1 x10E3/uL [facility] ACCOUNT BILL Monocytes Absolute 0.5 0.1 - 0.9 x10E3/uL [facility] ACCOUNT BILL Eosinophils Absolute 0.1 0.0 - 0.4 x10E3/uL [facility] ACCOUNT BILL Basophils Absolute 0.0 0.0 - 0.2 x10E3/uL [facility] ACCOUNT BILL Immature Granulocytes 0 Not Estab. % [facility] ACCOUNT BILL Immature Granulocytes Absolute 0.0 0.0 - 0.1 x10E3/uL [facility] ACCOUNT BILL nRBC NOT AVAILABLE [facility] ACCOUNT BILL Comment:Result cannot be obt ained for this observation. Comment Hematology NOT AVAILABLE [facility] ACCOUNT BILL Comment:Result cannot be obt ained for this observation. Blood BLOOD SPECIMEN / Unknown 10/08/2023 11:45 AM CDT 10/08/2023 Narrative Resulting Agency Comment [facility]: [facility] [address] [phone] Franci Rocha DO LAB - HEMATOLOGY O RDERABLES [facility] ACCOUNT BILL [address] [place] [address] * COMPREHENSIVE METABOLIC PANEL (10/08/2023 11:45 AM CDT) Only the most recent of16 resultswithin the time period is included. Glucose 88 70 - 99 mg/dL [facility] [...] Resulting Agency Comment Lab Testing performed at: [facility] [address] [id number] Franci E Bensinger DO LAB - CHEMISTRY OR DERABLES [facility] ACCOUNT BILL [address] [place] [address] * IRON + TIBC PANEL (10/08/2023 11:45 AM CDT) Only the most recent of5 resultswithin the time period is included. TIBC 333 250 - 450 ug/dL [facility] ACCOUNT BILL UIBC 253 118 - 369 ug/dL [facility] ACCOUNT BILL Iron 80 27 - 139 ug/dL [facility] ACCOUNT BILL Iron Saturation 24 15 - 55 % [facility] ACCOUNT B[facility] Blood BLOOD SPECIMEN / Unknown 10/08/2023 11:45 AM CDT 10/08/2023 Narrative Resulting Agency Comment Lab Testing performed at: [facility] [address] [phone] Franci E Manjindersinger DO LAB - CHEMISTRY OR DERABLES Performing Organization Address [facility] Co de Phone Number [facility] ACCOUNT BILL [address] [place] [address] * FOLATE (10/08/2023 11:45 AM CDT) Only the most recent of3 resultswithin the time period is included. Folate >20.0 >3.0 ng/mL [facility] ACCOUNT BILL Comment: A serum folate concentration of less than 3.1 ng/mL is considered to represent clinical deficiency. Blood BLOOD SPECIMEN / Unknown 10/08/2023 11:45 AM CDT 10/08/2023 Narrative Resulting Agency Comment Lab Testing performed at: [facility] [address] [id number] Franci E Bensinger DO LAB - CHEMISTRY OR DERABLES [facility] ACCOUNT BILL [address] [place] [address] * VITAMIN B12 (10/08/2023 11:45 AM CDT) Only the most recent of4 resultswithin the time period is included. Vitamin B12 983 232 - 1,245 pg/mL [facility] ACCOUNT BILL Blood BLOOD SPECIMEN / Unknown 10/08/2023 11:45 AM CDT 10/08/2023 Narrative Resulting Agency Comment Lab Testing performed at: [address] [id number] Franci E Bensinger DO LAB - CHEMISTRY OR DERABLES [facility] ACCOUNT BILL [address] [place] [address] * FERRITIN (10/08/2023 11:45 AM CDT) Only the most recent of7 resultswithin the time period is included. Ferritin 48 15 - 150 ng/mL [facility] ACCOUNT BILL Blood BLOOD SPECIMEN / Unknown 10/08/2023 11:45 AM CDT 10/08/2023 Narrative Resulting Agency Comment Lab Testing performed at: [address] [phone] Franci E Bensinger DO LAB - CHEMISTRY OR DERABLES [facility] ACCOUNT BILL [address] [place] [address] * LIPID PROFILE (LIPID PANEL) (10/08/2023 11:45 AM CDT) Only the most recent of4 resultswithin the time period is included. Cholesterol 154 100 - 199 mg/dL [facility] ACCOUNT BILL Triglycerides 55 0 - 149 mg/dL [facility] ACCOUNT BILL HDL Cholesterol 57 >39 mg/dL [facility] ACC[facility] B[facility] VLDL Calculated 11 5 - 40 mg/dL [facility] ACCOUNT BILL LDL Calculated 86 0 - 99 mg/dL [facility] ACCOUNT BILL Comment NOT AVAILABLE [facility] ACCOUNT BILL Comment:Result cannot be obt ained for this observation. Blood BLOOD SPECIMEN / Unknown 10/08/2023 11:45 AM CDT 10/08/2023 Narrative Resulting Agency Comment Lab Testing performed at: [facility] [address] [phone] Franci Rocha DO LAB - CHEMISTRY OR DERABLES [facility] ACCOUNT BILL [address] [place] [address] * US BREAST BILATERAL COMPLETE( whole breast including axilla and retroareaolar region) (09/05/2023) Anatomical Region Laterality Modality Breast Bilateral Ultrasound 09/05/2023 Franci Rocha DO US ORDERABLES * MAMMOGRAM (06/25/2023) Only the most recent of2 resultswithin the time period is included. Anatomical Region Laterality Modality Other 06/25/2023 Narrative 06/25/2023 Ordered by an unspecified provider. Scanned Document SCANNING ONLY * LIPID PROFILE REFLEX LDL DIRECT (10/03/2021 12:21 PM CDT) Only the most recent of5 resultswithin the time period is included. Cholesterol 163 <200 mg/dL [facility] ACCOUNT BILL Triglycerides 64 <150 mg/dL [facility] ACCOUNT BILL HDL Cholesterol 50 >40 mg/dL [facility] ACCOUNT B[facility] VLDL Calculated 13 <=30 mg/dL [facility] ACCOUNT BILL LDL Calculated 100 <130 mg/dL [facility] ACCOUNT [facility] Cholesterol/HDL Ratio 3.3 <4.5 [facility] ACCOUNT BILL LDL/HDL Ratio 2.0 <5.0 [facility] ACCOUNT BILL Comment: FASTING Blood BLOOD SPECIMEN / Unknown 10/03/2021 12:21 PM CDT 10/03/2021 Narrative Resulting Agency Comment Lab Testing performed at: [facility] [address] [place] [phone] Franci Rocha DO LAB - CHEMISTRY OR DERABLES [facility] ACCOUNT BILL [place] [place] [address] * PATHOLOGY TISSUE (05/18/2021 8:10 AM QUALITY CONTROL ASSOCIATE) Only the most recent of4 resultswithin the time period is included. Case Report Surgical Pathology Report Case: [id number] Authorizing Provider: Karlo Mendieta MD Collected: 05/18/2021 08:10 AM Ordering Location: [facility] Received: 05/18/2021 11:21 AM Pathologist: Rina Estrada MD Specimen: Polyp Cecum, Cecal polyp 05/19/2021 4:49 PM [facility] Final Diagnosis Large intestine, cecal polyp, biopsy (A): - Fragments of residual tubulovillous adenoma 05/19/2021 4:49 PM [facility] Microscopic Description and Comment Microscopic examination substantiates the final diagnosis. The biopsy is multiple small fragments of mucosa, the majority of which are involved by residual tubulovillous adenoma. 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 Operative procedure/findings: colonoscopy - 10 mm sessile polyp in cecum in region of prior endoscopic resection as evidenced by mucosa with bluish hue, endomucosal resection. 05/19/2021 4:49 PM [facility] Gross Description The requisition and specimen(s) are identified with the patient's name Siddhartha Brown. Received in formalin, specimen A , are multiple pink-church tissues, 0.1-0.5 cm in greatest dimension and 2.0 x 0.5 x 0.2 cm in aggregate, submitted in toto in cassette A1. DF 05/19/2021 4:49 PM [facility] Disclaimer The performance characteristics of all immunohistochemical and indirect immunofluorescence stains (if any) cited in this report were determined by the [facility]opathology Laboratory of [facility]. Some of these tests were developed by our own laboratory and have not been cleared or approved by the US Food and Drug Administration. The FDA does not require this test to go through premarket FDA review. These tests are used for clinical purposes. They should not be regarded as investigational or for research. This laboratory is certified under the Clinical Laboratory Improvement Amendments (CLIA) as qualified to perform high complexity clinical laboratory testing. This case has been personally reviewed and interpreted by the attending (teaching) pathologist. 05/19/2021 4:49 PM QUALITY CONTROL ASSOCIATE [facility] Embedded Images 05/19/2021 4:49 PM QUALITY CONTROL ASSOCIATE [facility] Biopsy, NOS POLYP OF CECUM / Unknown 05/18/2021 8:10 AM QUALITY CONTROL ASSOCIATE 05/18/2021 11:21 AM QUALITY CONTROL ASSOCIATE Comment:Pre-op diagnosis: History of colon polyps [Z86.010] High risk for colon cancer [Z91.89] Karlo Mendieta MD LAB - PATHOLOGY/CYTO LOGY ORDERABLES Performing Organization Address City/State/[facility] de Phone Number [facility] [address] [phone] * ENDOSCOPY, COLON, DIAGNOSTIC (05/18/2021 7:36 AM QUALITY CONTROL ASSOCIATE) Report Endoscopy POC Endoscopy Department Report _ Patient Name: Siddhartha Brown Procedure Date: 05/18/2021 7:36 AM Date of : 1950 Classification: Outpatient Gender: Female Ethnicity: Not or Race: Black or _ Providers: Karlo Mendieta MD Referring MD: Franci Daigle (Referring MD) Procedure: Colonoscopy Indications: High risk colon cancer surveillance: Personal history of colonic polyps Medications: Monitored Anesthesia Care Patient Profile: 71 y old woman s/p colonoscopy with EMR of 6 cm c[address] polyp by Dr. oCttrell in 2019. Last colonoscopy 2019 with scant residual adenomatous tissue (TVA) remaining in cecum s/p resection. Planned repeat colonoscopy for evaluation Description of Procedure: Pre-Anesthesia Assessment: - Prior to the procedure, a History and Physical was performed, and patient medications and allergies were reviewed. The patient's tolerance of previous anesthesia was also reviewed. The risks and benefits of the procedure and the sedation options and risks were discussed with the patient. All questions were answered, and informed consent was obtained. Prior Anticoagulants: The patient has taken no previous anticoagulant or antiplatelet agents. ASA Grade Assessment: II - A patient with mild systemic disease. After reviewing the risks and benefits, the patient was deemed in satisfactory condition to undergo the procedure. After I obtained informed consent, the scope was passed under direct vision. Throughout the procedure, the patient's blood pressure, pulse, and oxygen saturations were monitored continuously. The CF-SO312H was introduced through the anus and advanced to the cecum, identified by appendiceal orifice and ileocecal valve. The colonoscopy was performed without difficulty. The patient tolerated the procedure well. The quality of the bowel preparation was excellent. The ileocecal valve, appendiceal orifice, and rectum were photographed. Findings: Small external hemorrhoids were found on perianal exam. A 10 mm polyp was found in the cecum in the region of the prior endoscopic resection as evidenced by mucosa with bluish hue. The polyp was sessile. Preparations were made for mucosal resection. A solution of 1:60,000 epinephrine/Elevie w was injected to raise the lesion which minimally lifted due to prior resection. Snare mucosal resection was performed with apparent complete resection en bloc. Resection and retrieval were complete. To ensure no residual adenoma, cold forceps were used to resection inferior edge. To further ensure no residual adenomatous tissue (even though none seen), snare tip coagulation for tissue destruction was successful around the inferior edge of the polyp resection site. To prevent bleeding after mucosal resection, one hemostatic clip was successfully placed (MR conditional). There was no bleeding during, or at the end, of the procedure. A few small and large-mouthed diverticula were found in the sigmoid colon and descending colon. External hemorrhoids were found during retroflexion. Estimated Blood Loss: Estimated blood loss was minimal. Complications: No immediate complications. Estimated blood loss: Minimal. Impression: 1) One 10 mm polyp in the cecum at site of prior cecal EMR. This was removed with mucosal resection. Resected and retrieved. To ensure no residual adenomatous tissue, this was treated with cold forceps and soft-coag around inferior edge of resection site. 1 clip (MR conditional) was placed to reduce risk of post-EMR bleeding or other complications. No immediate complications noted. 2) Diverticulosis in the sigmoid colon and in the descending colon. 3) Small external hemorrhoids. Recommendation: - Discharge patient to home (ambulatory). - Repeat colonoscopy in 3 years for surveillance. - Patient has a contact number available for emergencies. The signs and symptoms of potential delayed complications were discussed with the patient. Return to normal activities tomorrow. Written discharge instructions were provided to the patient. - Resume previous diet. - Continue present medications. - Await pathology results. Attending Participation: I personally performed the entire procedure. Procedure Code(s): --- Professional --- 21171, Colonoscopy, flexible; with endoscopic mucosal resection Diagnosis Code(s): --- Professional --- Z86.010, Personal history of colonic polyps K64.4, Residual hemorrhoidal skin tags K63.5, Polyp of colon K57.30, Diverticulosis of large intestine without perforation or abscess without bleeding CPT copyright 2019 [employer]. All rights reserved. The codes documented in this report are preliminary and upon line clearance foreman review may be revised to meet current compliance requirements. Karlo Mendieta MD 05/18/2021 8:36:10 AM This report has been signed electronically. Note Initiated On: 05/18/2021 7:36 AM Number of Addenda: [address] [id number] [facility] 05/18/2021 7:36 AM QUALITY CONTROL ASSOCIATE Karlo Mendieta MD GI PROCEDURE ORDERAB LES [facility] * CYCLIC CITRUL PEPTIDE ANTIBODY IGG/IGA (CCP) (01/23/2021 12:28 PM CDT) CCP Antibodies IgG/IgA 6 0 - 19 units [facility] ACCOUNT BILL Comment: Negative <20 Weak positive 20 - 39 Moderate positive 40 - 59 Strong positive >59 Blood BLOOD SPECIMEN / Unknown 01/23/2021 12:28 PM CDT 01/23/2021 Narrative Resulting Agency Comment Lab Testing performed at: [facility] [address] [id number] Franci Rocha DO LAB - SEROLOGY ORD ERABLES Performing Organization Address City/[facility] Co de Phone Number [facility] ACCOUNT BILL [address] [place] [address] * RHEUMATOID FACTOR BLOOD QUANTITATIVE (01/23/2021 12:28 PM CDT) Only the most recent of2 resultswithin the time period is included. Pathologist [facility] Rheumatoid Factor <15 <30 IU/mL [facility] ACCOUNT BILL Blood BLOOD SPECIMEN / Unknown 01/23/2021 12:28 PM CDT 01/23/2021 Narrative Resulting Agency Comment Lab Testing performed at: [facility] [address] [place] [phone] Franci Rocha DO LAB - CHEMISTRY OR DERABLES Performing Organization Address City/[facility]/ZIP Co de Phone Number [facility] ACCOUNT BILL [address] [place] [address] * IRON + TRANSFERRIN PANEL (01/23/2021 12:28 PM CDT) Iron 66 50 - 170 ug/dL [facility] ACCOUNT BILL Transferrin 246 173 - 360 mg/dL [facility] ACCOUNT BILL Comment: TIBC CALCULATED BLOOD (SSM) 308 ug/dL 240-450 SATURATION % BLOOD (SSM) 21 % 20-50 Blood BLOOD SPECIMEN / Unknown 01/23/2021 12:28 PM CDT 01/23/2021 Narrative Resulting Agency Comment Lab Testing performed at: [facility] [address] [place] [id number] Franci E Bensinger DO LAB - CHEMISTRY OR DERABLES Performing Organization Address City/[facility]/ZIP Co de Phone Number [facility] ACCOUNT BILL [address] [place] [address] * URIC ACID BLOOD (01/23/2021 12:27 PM CDT) Only the most recent of2 resultswithin the time period is included. Uric Acid 5.9 2.6 - 6.0 mg/dL [facility] ACCOUNT BILL Blood BLOOD SPECIMEN / Unknown 01/23/2021 12:27 PM CDT 01/23/2021 Narrative Resulting Agency Comment Lab Testing performed at: [address] [id number] Franci E Davieger DO LAB - CHEMISTRY OR DERABLES Performing Organization Address City/[facility] Co de Phone Number [facility] ACCOUNT BILL [address] [place] [address] * (ABNORMAL) C-REACTIVE PROTEIN (CRP) (01/23/2021 12:27 PM CDT) Only the most recent of2 resultswithin the time period is included. C-Reactive Protein 2.12(H) <=0.50 mg/dL [facility] ACCOUNT BILL Blood BLOOD SPECIMEN / Unknown 01/23/2021 12:27 PM CDT 01/23/2021 Narrative Resulting Agency Comment Lab Testing performed at: [facility] [address] [place] [phone] Franci E Bensinger DO LAB - CHEMISTRY OR DERABLES Performing Organization Address City/[facility]/ZIP Co de Phone Number [facility] ACCOUNT BILL [address] [place] [address] * SED RATE AUTO (ESR) (01/23/2021 12:27 PM CDT) Only the most recent of2 resultswithin the time period is included. Erythrocyte Sedimentation Rate Lauryn 29 0 - 30 MM/HR [facility] ACCOUNT BILL Blood BLOOD SPECIMEN / Unknown 01/23/2021 12:27 PM CDT 01/23/2021 Narrative Resulting Agency Comment Lab Testing performed at: [facility] [address] [place] [phone] Franci Rocha DO LAB - HEMATOLOGY O RDERABLES [facility] ACCOUNT BILL [address] [place] [address] * MAMMO BILAT SCREENING (12/23/2020) Only the most recent of6 resultswithin the time period is included. Anatomical Region Laterality Modality Breast Bilateral Mammography 12/23/2020 Franci Rocha DO MAMMO ORDERABLES * IMAGING RADIOLOGY XRAY RESULTS ORDER (12/14/2020) Only the most recent of5 resultswithin the time period is included. Anatomical Region Laterality Modality Other 12/14/2020 Narrative 12/14/2020 Ordered by an unspecified provider. Scanned Document IMAGING * PAIN MANAGEMENT PROCEDURE TIME (05/11/2020 11:28 AM QUALITY CONTROL ASSOCIATE) Only the most recent of3 resultswithin the time period is included. Anatomical Region Laterality Modality Radio Fluoroscop y Narrative 05/11/2020 11:38 AM QUALITY CONTROL ASSOCIATE Dale Whiting MD 05/11/2020 11:38 AM Abdominal Neuroma Injection left side Under Ultrasound Guidance The patient is identified and procedure is reviewed again with questions answered. Risks of the procedure was reviewed. Informed consent was obtained. The patient is then taken to the procedure room and placed in the supine position. Patient is monitored throughout the procedure. Refer to nurses record for medications given. The neuroma area was marked then prepped with chloro-prep twice. Sterile towels were used to create a sterile field. The anatomy was visualized and mapped out under ultrasound guidance. Then using 1 ml of 0.5 % lidocaine at each neuroma site skin infiltration is done with a 27 gauge needle. Then a 22 gauge 3.5 needle is advanced to the painful area in the plane along the transversus abdominus and then rectus muscle above the fascia above the peritoneal layer after negative aspiration, 9 ml of 0.25 % bupivacaine and 10 mg dexamethasoneis injected in neuroma for a total of 10 ml injected under ultrasound guidance. The patient tolerated the procedure well and is transported to recovery area in stable condition. then 2 laparoscopic port sites were also injected with a 27 gauge needle - 10 cc total of admixture 10 mg dexamethasone in 10 ml of 0.25% bupivicaine. bandaids were applied.After observation and full recovery the patient was discharged in stable condition. Dale Whiting MD DIAGNOSTIC IMAGING O RDERABLES * CBC W DIFF (EXTERNAL RESULT ENTRY) (01/12/2020) Pathologist [facility] WBC (EXTERNAL RESULT) 6.2 3.4 - 10.8 10^3/ul Hemoglobin (EXTERNAL RESULT) 13.1 11.1 - 15.9 g/dl Hematocrit (EXTERNAL RESULT) 39.4 34.0 - 46.6 % Platelets (EXTERNAL RESULT) 367 150 - 450 10^3/ul Neutrophil Absolute (EXTERNAL RESULT) 3.3 1.4 - 7.0 10^3/ul Blood BLOOD SPECIMEN / Unknown 01/12/2020 Historical Provider LAB - HEMATOLOGY ORDERABLES * FERRITIN (EXTERNAL RESULT ENTRY) (01/12/2020) Pathologist [facility] Ferritin (EXTERNAL RESULT) 52 15 - 150 ng/mL Blood BLOOD SPECIMEN / Unknown 01/12/2020 Historical Provider LAB - CHEMISTRY O RDERABLES * IRON/SATURATION (EXTERNAL RESULT ENTRY) (01/12/2020) Pathologist [facility] Iron (EXTERNAL RESULT) 75 27 - 139 mcg/dl Transferrin (EXTERNAL RESULT) Transferrin Saturation (EXTERNAL RESULT) Blood BLOOD SPECIMEN / Unknown 01/12/2020 Historical Provider LAB - CHEMISTRY O RDALEJA * EGD (12/21/2019 10:39 AM CDT) Report Endoscopy POC Endoscopy Department Report __ _ Patient Name: Siddhartha Brown Procedure Date: 12/21/2019 10:39 AM Date of : 1950 Classification: Outpatient Gender: Female Ethnicity: Not or Race: Black or __ _ Providers: Jihan Ledezma MD, Rambo Muir (Fellow) Referring MD: Guillermo Bridges (Referring MD) Procedure: Upper GI endoscopy Indications: Iron deficiency anemia, abdominal pain, dysphagia Medications: Monitored Anesthesia Care Comorbidities HTN, TIA Description of Procedure: Pre-Anesthesia Assessment: - Prior to the procedure, a History and Physical was performed, and patient medications and allergies were reviewed. The patient's tolerance of previous anesthesia was also reviewed. The risks and benefits of the procedure and the sedation options and risks were discussed with the patient. All questions were answered, and informed consent was obtained. Prior Anticoagulants: The patient has taken no previous anticoagulant or antiplatelet agents. ASA Grade Assessment: III - A patient with severe systemic disease. After reviewing the risks and benefits, the patient was deemed in satisfactory condition to undergo the procedure. After obtaining informed consent, the endoscope was passed under direct vision. Throughout the procedure, the patient's blood pressure, pulse, and oxygen saturations were monitored continuously. The Endoscope was introduced through the mouth, and advanced to the second part of duodenum. The upper GI endoscopy was accomplished without difficulty. The patient tolerated the procedure well. Findings: Esophagogastric landmarks were identified: the Z-line was found at 36 cm, the gastroesophageal junction was found at 36 cm and the site of hiatal narrowing was found at 36 cm from the incisors. The examined esophagus was normal. Biopsies were obtained from the proximal and distal esophagus with cold forceps for histology of suspected eosinophilic esophagitis. Localized mildly erythematous mucosa without bleeding was found in the gastric antrum. Biopsies were taken with a cold forceps for histology. Estimated blood loss was minimal. The cardia and gastric fundus were normal on retroflexion. Two 2 mm sessile polyps, fundic gland appearing polyps with no bleeding and no stigmata of recent bleeding were found in the gastric body. The first portion of the duodenum and second portion of the duodenum were normal. Biopsies for histology were taken with a cold forceps for evaluation of celiac disease. Estimated blood loss was minimal. Estimated Blood Loss: Estimated blood loss was minimal. Complications: No immediate complications. Impression: - Esophagogastric landmarks identified. - Normal esophagus. Biopsied. - Erythematous mucosa in the antrum. Biopsied. - Two gastric polyps. - Normal first portion of the duodenum and second portion of the duodenum. Biopsied. Recommendation: - Patient has a contact number available for emergencies. The signs and symptoms of potential delayed complications were discussed with the patient. Return to normal activities tomorrow. Written discharge instructions were provided to the patient. - Discharge patient to home (with escort). - Continue present medications. - Await pathology results. - Return to GI clinic as previously scheduled. - Stop nexium and take pantoprazole only. Attending Participation: I personally performed the entire procedure. Procedure Code(s): --- Professional --- 29790, Esophagogastroduode noscopy, flexible, transoral; with biopsy, single or multiple Diagnosis Code(s): --- Professional --- K31.89, Other diseases of stomach and duodenum K31.7, Polyp of stomach and duodenum D50.9, Iron deficiency anemia, unspecified CPT copyright 2019 [employer]. All rights reserved. The codes documented in this report are preliminary and upon line clearance foreman review may be revised to meet current compliance requirements. ___ Jihan Ledezma MD 12/21/2019 11:59:09 AM Note Initiated On: 12/21/2019 10:39 AM Number of Addenda: 0 [facility] [address] [place] [address] [facility] 12/21/2019 10:3 9 AM CDT Rambo Muir MD GI PROCEDURE ORDERAB LES [facility] * MAMMOGRAPHY ORDER (11/28/2019) Only the most recent of3 resultswithin the time period is included. Anatomical Region Laterality Modality Mammography Scanned Document MAMMO ORDERABLES * CT ABDOMEN PELVIS WO CONTRAST (07/09/2019) Only the most recent of4 resultswithin the time period is included. Anatomical Region Laterality Modality Abdomen, Pelvis Other Keenan Angulo MD CT ORDERABLES * XR LUMBAR SPINE 4VW OR MORE (06/22/2019) Anatomical Region Laterality Modality Spine Other Keenan Angulo MD DIAGNOSTIC IMAGING O RDERABLES * ENDOSCOPY, COLON, SCREENING (05/12/2019 9:23 AM QUALITY CONTROL ASSOCIATE) Report Endoscopy POC Endoscopy Department Report _ Patient Name: Siddhartha Brown Procedure Date: 05/12/2019 9:23 AM Date of : 1950 Classification: Outpatient Gender: Female Ethnicity: Not or Race: Black or _ Providers: Karlo Mendieta MD Referring MD: Keenan Angulo MD (Referring MD) Procedure: Colonoscopy Indications: High risk colon cancer surveillance: Personal history of colonic polyps Medications: Monitored Anesthesia Care Patient Profile: 69 y old woman, hx of cecal ~ 6 cm polyp removed in October 2018, planned follow-up Description of Procedure: Pre-Anesthesia Assessment: - Prior to the procedure, a History and Physical was performed, and patient medications and allergies were reviewed. The patient's tolerance of previous anesthesia was also reviewed. The risks and benefits of the procedure and the sedation options and risks were discussed with the patient. All questions were answered, and informed consent was obtained. Prior Anticoagulants: The patient has taken no previous anticoagulant or antiplatelet agents. ASA Grade Assessment: II - A patient with mild systemic disease. After reviewing the risks and benefits, the patient was deemed in satisfactory condition to undergo the procedure. After I obtained informed consent, the scope was passed under direct vision. Throughout the procedure, the patient's blood pressure, pulse, and oxygen saturations were monitored continuously. The [id number]-[id number] was introduced through the anus and advanced to the terminal ileum, with identification of the appendiceal orifice and IC valve. The colonoscopy was performed without difficulty. The patient tolerated the procedure well. The quality of the bowel preparation was excellent. The quality of the bowel preparation was evaluated using the BBPS (Auberry Bowel Preparation Scale) with scores of: Right Colon = 3, Transverse Colon = 3 and Left Colon = 3 (entire mucosa seen well with no residual staining, small fragments of stool or opaque liquid). The total BBPS score equals 9. The terminal ileum, ileocecal valve, appendiceal orifice, and rectum were photographed. Findings: The perianal and digital rectal examinations were normal. A 2 mm polyp was found in the sigmoid colon. The polyp was sessile. The polyp was removed with a cold biopsy forceps. Resection and retrieval were complete. Regenerative tissue at site of prior cecal polypectomy/EMR site. ~3-4 mm area of polypoid tissue was resected, r/o residual adenoma in this area. Complete removal was accomplished. All remaining areas of prior EMR site without evidence of residual adenoma. The terminal ileum appeared normal. Multiple small and large-mouthed diverticula were found in the entire colon. The retroflexed view of the distal rectum and anal verge was normal and showed no anal or rectal abnormalities. Estimated Blood Loss: Estimated blood loss was minimal. Complications: No immediate complications. Estimated blood loss: Minimal. Impression: 1) One 2 mm polyp in the sigmoid colon, removed with a cold biopsy forceps. Resected and retrieved. 2) Regenerative tissue at site of prior cecal polypectomy/EMR site. ~3-4 mm area of polypoid tissue was resected, r/o residual adenoma in this area. Complete removal was accomplished. All remaining areas of prior EMR site without evidence of residual adenoma. 3) The examined portion of the ileum was normal. 4) Diverticulosis in the entire examined colon. 5) The distal rectum and anal verge are normal on retroflexion view. Recommendation: - Discharge patient to home (ambulatory). - Refer to a photographic intelligence officer at the next available appointment for clinic visit to discuss chronic symptoms of band-like abdominal discomfort in ruperto-umbilical region. - Patient has a contact number available for emergencies. The signs and symptoms of potential delayed complications were discussed with the patient. Return to normal activities tomorrow. Written discharge instructions were provided to the patient. - Resume previous diet. - Continue present medications. - Await pathology results. - Repeat colonoscopy in 3 years for surveillance. Attending Participation: I personally performed the entire procedure. Procedure Code(s): --- Professional --- 48478, Colonoscopy, flexible; with biopsy, single or multiple Diagnosis Code(s): --- Professional --- Z86.010, Personal history of colonic polyps D12.5, Benign neoplasm of sigmoid colon D49.0, Neoplasm of unspecified behavior of digestive system K57.30, Diverticulosis of large intestine without perforation or abscess without bleeding CPT copyright 2016 [employer]. All rights reserved. The codes documented in this report are preliminary and upon line clearance foreman review may be revised to meet current compliance requirements. Karlo Mendieta MD 05/12/2019 10:09:50 AM This report has been signed electronically. Note Initiated On: 05/12/2019 9:23 AM Number of Addenda: 0 [facility] [address] at [facility], [place] [address] [facility] 05/12/2019 9:23 AM QUALITY CONTROL ASSOCIATE Karlo Mendieta MD GI PROCEDURE ORDERAB LES [facility] * CARDIAC EKG ORDER (04/24/2019 2:44 PM QUALITY CONTROL ASSOCIATE) Only the most recent of3 resultswithin the time period is included. Narrative 04/24/2019 2:44 PM QUALITY CONTROL ASSOCIATE Ordered by an unspecified provider. Scanned Document CARDIAC SERVICES ORD ERABLES * XR FOOT RIGHT 2VW (03/09/2019) Anatomical Region Laterality Modality Ankle / Foot Other Keenan Angulo MD DIAGNOSTIC IMAGING O RDERABLES * (ABNORMAL) BASIC METABOLIC PANEL (CALCIUM TOTAL) (03/07/2019 10:31 AM CDT) Only the most recent of8 resultswithin the time period is included. Glucose 124(H) 65 - 99 mg/dL [facility] INSURANCE BILL BUN 13 8 - 27 mg/dL [facility] INSURANCE BILL Creatinine 0.76 0.57 - 1.00 mg/dL [facility] INSURANCE BILL eGFR by MDRD 80 >59 mL/min/1.7 3 [facility] INSURANCE BILL eGFR by MDRD 92 >59 mL/min/1.7 3 [facility] INSURANCE BILL BUN/Creatinine Ratio 17 12 - 28 [facility] INSURANCE BILL Sodium 142 134 - 144 mmol/L [facility] INSURANCE BILL Potassium 4.4 3.5 - 5.2 mmol/L [facility] INSURANCE BILL Chloride 102 96 - 106 mmol/L [facility] INSURANCE BILL CO2 25 20 - 29 mmol/L [facility] INSURANCE BILL Calcium 10.0 8.7 - 10.3 mg/dL [facility] INSURANCE BILL Comment:FASTING Blood BLOOD SPECIMEN / Unknown 03/07/2019 10:31 AM CDT 03/07/2019 Narrative Resulting Agency Comment Lab Testing performed at: [facility] [address] [facility] [phone] Keenan Angulo MD LAB - CHEMISTRY ASHIA VELAZQUEZ [facility] INSURANCE BILL [address] [place] [address] * HPV DETECTION HIGH RISK EARL (01/20/2019 12:00 PM CDT) High Risk Human Papilloma Result Not Detected Not Detected 01/22/2019 4:25 PM CDT [facility] High Risk Human Papilloma Interp 01/22/2019 4:25 PM CDT [facility] Comment:High Risk Human Fab lloma Virus was Not Detected. Pathology/Cytolo gy MISCELLANEOUS SAMPLES / Unknown 01/20/2019 12:00 PM CDT 01/21/2019 12:31 PM CDT Narrative [facility] - 01/22/2019 4:25 PM CDT Nucleic acid isolated from the specimen was analyzed with a nucleic acid amplification test (FDA approved Gen-Probe HPV Assay) to detect high risk human papilloma virus (Types: 16, 18, 31, 33, 35, 39, 45, 51, 52, 56, 58, 59, 66, and 68). The reference range is Not Detected . Comment: These test results should not be used as the sole basis for clinical assessment and treatment of patients. These results should always be correlated with other available data (cytology, histology, and clinical information). Brionna Denis MD LAB - MICROBIOLOGY ORDERABLES Performing Organization Address City/[facility]/ZIP Co de Phone Number [facility] [phone] * PAP IMAGE-GUIDED LIQUID BASE W HPV (01/20/2019 12:00 PM CDT) Case Report Gynecologic Cytology Report Case: [id number] Authorizing Provider: Brionna Denis MD Collected: 01/20/2019 12:00 PM Ordering Location: [facility] Obstetrics Received: 01/21/2019 12:31 PM [facility] First Screen: Napoleon Man Rescreen: Andres Mendiola Specimen: THINPREP - IMAGE GUIDED, Cervix/Endocervix 01/26/2019 3:20 PM CDT [facility] LMP vag pap 01/26/2019 3:20 PM CDT [facility] Menstrual Status Not Given Hysterectomy 01/26/2019 3:20 PM CDT [facility] Specimen Adequacy Satisfactory for evaluation, endocervical/trans formation zone component absent. 01/26/2019 3:20 PM CDT [facility] Categorization Negative for intraepithelial lesion or malignancy. 01/26/2019 3:20 PM CDT [facility] Interpretation MANUFACTURER AGENT Negative for intraepithelial lesion or malignancy. 01/26/2019 3:20 PM CDT [facility] Pap Footnote This specimen was evaluated by the ThinPrep Imaging System along with the an additional manual rescreening by a activity therapy specialist and/or pathologist. 01/26/2019 3:20 PM CDT [facility] Embedded Images 3:20 PM CDT [facility] Pathology/Cytolo gy MISCELLANEOUS SAMPLES / Unknown 01/20/2019 12:00 PM CDT 01/21/2019 12:31 PM CDT Brionna Denis MD LAB - PATHOLOGY/CYT OLOGY ORDERABLES [facility] [address] [phone] * URINALYSIS MICROSCOPIC ONLY REFLEXED (12/09/2018 11:10 AM CDT) Only the most recent of4 resultswithin the time period is included. WBC UA 0-5 # /hpf [facility] ACCOUNT BILL Comment:REFERENCE RANGE: Non e Seen, 0-5 RBC UA 0-2 # /hpf [facility] ACCOUNT BILL Comment:REFERENCE RANGE: Non e Seen, 0-2, 3-5 Epithelial Cells (non renal) 3-5 /hpf [facility] ACCOUNT BILL Comment:REFERENCE RANGE: Non e Seen, 0-2, 3-5 Bacteria UA None seen None Seen [facility] ACCOUNT BILL Comment:FASTING 12/09/2018 11:1 0 AM CDT 12/09/2018 Narrative Resulting Agency Comment Lab Testing performed at: [address] [phone] Keenan Angulo MD LAB - URINALYSIS ORD ERABLES Performing Organization Address City/[facility]/ZIP Co de Phone Number [facility] ACCOUNT BILL [address] [place] [address] * (ABNORMAL) URINALYSIS REFLEX TO MICROSCOPIC NO CULTURE (12/09/2018 11:10 AM CDT) Only the most recent of8 resultswithin the time period is included. Specific [place] UA 1.015 1.005 - 1.030 [facility] ACCOUNT BILL pH UA 6.0 5.0 - 8.0 pH [facility] ACCOUNT BILL Color UA Yellow [facility] ACCOUNT BILL Comment:REFERENCE RANGE: Str aw, Yellow Appearance See below:(A) Clear [facility] ACCOUNT BILL Comment:Slt Cloudy Leukocyte UA Negative Negative [facility] ACCOUNT BILL Protein UA 1+(A) Negative [facility] ACCOUNT BILL Glucose UA Negative Negative [facility] ACCOUNT BILL Ketone UA Negative Negative [facility] ACCOUNT BILL Occult Blood Urine Negative Negative [facility] ACCOUNT BILL Bilirubin UA Negative Negative [facility] ACCOUNT BILL Urobilinogen Negative Negative mg/dL [facility] ACCOUNT BILL Nitrite UA Negative Negative [facility] ACCOUNT BILL Microscopic Examination Urine [facility] ACCOUNT BILL Comment: URINE MICROSCOPY ([facility]) UA See Below Urine microscopy to follow FASTING Urine URINE SPECIMEN OBTAINED BY CLEAN CATCH PROCEDURE / Unknown 12/09/2018 11:10 AM CDT 12/09/2018 Narrative Resulting Agency Comment Lab Testing performed at: [address] [phone] Keenan Angulo MD LAB - URINALYSIS ORD ERABLES Performing Organization Address City/[facility]/ZIP Co de Phone Number [facility] ACCOUNT BILL [address] [place] [address] * APHERESIS/TRANSFUSION ORDER (11/04/2018 1:26 PM CDT) Narrative 11/04/2018 1:26 PM CDT Ordered by an unspecified provider. Scanned Document NURSING - VITAL SIGN S AND ASSESSMENT * XR CHEST 1VW (11/01/2018 5:49 AM CDT) Only the most recent of2 resultswithin the time period is included. Anatomical Region Laterality Modality Chest Radiographic Ann Marie ging 11/01/2018 9:11 AM CDT Impressions 11/01/2018 10:57 AM CDT FINDINGS/IMPRESSION: No free air is seen under the diaphragm. There is no focal consolidation, pleural effusion, or pneumothorax. The cardiac silhouette is normal. The mediastinal silhouette is normal. Report dictated by Osmany Mitchell M.D. (president ergonomic consulting). This report was approved by Osmany Mitchell Dr on 11/01/2018 10:[address] JOAQUIN Cox MD have personally reviewed and interpreted this examination/study. This report was electronically signed by Dr. JOAQUIN MALLOY MD on 11/01/2018 10:57 AM . Narrative 11/01/2018 10:57 AM CDT EXAMINATION: XR CHEST 1VW, 11/01/2018 5:50 AM HISTORY: r/o free air COMPARISON: 10/31/2018 at 1:36 PM Procedure Note Joaquin Malloy MD - 11/01/2018 EXAMINATION: XR CHEST 1VW, 11/01/2018 5:50 AM HISTORY: r/o free air COMPARISON: 10/31/2018 at 1:36 PM FINDINGS/IMPRESSION: No free air is seen under the diaphragm. There is no focalconsolidation, pleural effusion, or pneumothorax. The cardiac silhouette is normal. The mediastinal silhouette is normal. Report dictated by Osmany Mitchell M.D. (president ergonomic consulting). This report was approved by Osmany Mitchell Dr on 11/01/2018 10:[address] JOAQUIN Cox MD have personally reviewed and interpretedthis examination/study. This report was electronically signed by Dr. JOAQUIN MALLOY MD on 11/01/2018 10:57 AM . Fredy Rosa MD DIAGNOSTIC IMAGING O RDERABLES * (ABNORMAL) CBC W/O DIFFERENTIAL (10/31/2018 12:12 PM [facility]) Only the most recent of2 resultswithin the time period is included. WBC 9.4 3.5 - 10.5 10 3/uL 10/31/2018 1:19 PM [facility] RBC 3.17(L) 3.90 - 5.00 10 6/uL 10/31/2018 1:19 PM [facility] Hemoglobin 7.8(L) 12.0 - 15.5 g/dL 10/31/2018 1:19 PM [facility] Comment:Results are confirme d by repeat analysis. Hematocrit 25.4(L) 35.0 - 45.0 % 10/31/2018 1:19 PM [facility] MCV 80.1(L) 81.0 - 97.0 fL 10/31/2018 1:19 PM [facility] MCH 24.6(L) 28.0 - 34.0 pg 10/31/2018 1:19 PM [facility] MCHC 30.7(L) 32.0 - 36.0 g/dL 10/31/2018 1:19 PM [facility] Platelet Count 426(H) 150 - 400 10 3/uL 10/31/2018 1:19 PM [facility] RDW-SD 47.9 36.0 - 50.0 fL 10/31/2018 1:19 PM [facility] RDW-CV 16.7(H) 11.2 - 14.8 % 10/31/2018 1:19 PM [facility] MPV 10.1 9.3 - 12.8 fL 10/31/2018 1:19 PM [facility] nRBC Absolute 0.00 0 10 3/uL 10/31/2018 1:19 PM [facility] nRBC Auto 0.0 0 /100 WBC 10/31/2018 1:19 PM [facility] Blood BLOOD SPECIMEN / Unknown Lab Venipuncture / Unknown 10/31/2018 12:12 PM CDT 10/31/2018 1:05 PM CDT Gavin Contreras MD LAB - HEMATOLOGY ORD ERAANMOL Performing Organization Address City/[facility]/ZIP Co de Phone Number [address] [phone] * LIPASE BLOOD (10/31/2018 2:29 AM CDT) Only the most recent of2 resultswithin the time period is included. Lipase 41 8 - 78 Units/L 10/31/2018 3:04 AM CDT [facility] Blood BLOOD SPECIMEN / Unknown Lab Venipuncture / Unknown 10/31/2018 2:29 AM CDT 10/31/2018 2:40 AM CDT Gavin Contreras MD LAB - CHEMISTRY ASHIA VELAZQUEZ Performing Organization Address [facility] Co de Phone Number [address] [phone] * (ABNORMAL) IRON BLOOD (10/31/2018 2:29 AM CDT) Iron 10(L) 40 - 150 mcg/dL 10/31/2018 3:05 AM CDT [facility] Blood BLOOD SPECIMEN / Unknown Lab Venipuncture / Unknown 10/31/2018 2:29 AM CDT 10/31/2018 2:40 AM CDT Gavin Contreras MD LAB - CHEMISTRY ASHIA VELAZQUEZ Performing Organization Address City/[facility]/ZIP Co de Phone Number [address] [phone] * TROPONIN I (10/30/2018 7:54 PM CDT) Only the most recent of3 resultswithin the time period is included. Troponin I 0.013 <0.032 ng/mL 10/30/2018 8:43 PM CDT [facility] Blood BLOOD SPECIMEN / Unknown Venipuncture / Unknown 10/30/2018 7:54 PM CDT 10/30/2018 8:19 PM CDT Manish Hunter MD LAB - CHEMISTRY ASHIA Schwab Organization Address City/State/ZIP Co de Phone Number [facility] [address] [phone] * (ABNORMAL) URINALYSIS W/MICROSCOPIC NO CULTURE (10/30/2018 7:15 PM CDT) Only the most recent of2 resultswithin the time period is included. Color UA Yellow Straw, Yellow, Colorless 10/30/2018 7:22 PM [facility] Clarity UA Slt Cloudy Clear, t Cloudy 10/30/2018 7:22 PM [facility] Specific [place] UA 1.008 1.005 - 1.030 10/30/2018 7:22 PM [facility] pH UA 6.0 5.0 - 8.0 pH 10/30/2018 7:22 PM [facility] Protein UA Negative Negative mg/dL 10/30/2018 7:22 PM [facility] Glucose UA Negative Negative mg/dL 10/30/2018 7:22 PM [facility] Ketone UA Negative Negative mg/dL 10/30/2018 7:22 PM [facility] Bilirubin UA Negative Negative mg/dL 10/30/2018 7:22 PM [facility] Blood UA Negative Negative 10/30/2018 7:22 PM [facility] Nitrite UA Negative Negative 10/30/2018 7:22 PM [facility] Leukocyte Esterase Trace(A) Negative 10/30/2018 7:22 PM [facility] Urobilinogen UA Negative Negative mg/dL 10/30/2018 7:22 PM [facility] RBC UA 0-2 None Seen, 0-2, 3-5 /HPF 10/30/2018 7:22 PM [facility] WBC UA 0-5 None Seen, 0-5 /HPF 10/30/2018 7:22 PM [facility] Squamous Epithelial Cells UA 0-2 None Seen, 0-2 /HPF 10/30/2018 7:22 PM [facility] Mucus UA 1+ None, 1+ /LPF 10/30/2018 7:22 PM CDT [facility] Transitional Epithelial Cells UA 0-2 None Seen, 0-2 /HPF 10/30/2018 7:22 PM CDT [facility] Urine URINE SPECIMEN OBTAINED BY CLEAN CATCH PROCEDURE / Unknown Collection / Unknown 10/30/2018 7:15 PM CDT 10/30/2018 7:15 PM CDT Jos Moore MD LAB - URINALYSIS ORD ERABLES Performing Organization Address [facility]/ZIP Co de Phone Number [address] [phone] * PREPARE (CROSSMATCH) RBC UNIT(S), 1 Units (10/30/2018 6:55 PM CDT) Only the most recent of3 resultswithin the time period is included. Unit Description N/A [facility] Blood Bank BLOOD SPECIMEN / Unknown 10/30/2018 6:55 PM CDT 10/30/2018 7:06 PM CDT Jarrett Bhardwaj MD LAB - BLOOD BANK ORD ERABLES Performing Organization Address [facility] Co de Phone Number [facility] [address] [place] [address] * TYPE + SCREEN PANEL (10/30/2018 6:55 PM CDT) Antibody Screen NEG 9 7:42 PM CDT [facility] ABO Rh A POS 10/30/2018 7:42 PM CDT [facility] Blood Bank BLOOD SPECIMEN / Unknown Venipuncture / Unknown 10/30/2018 6:55 PM CDT 10/30/2018 7:03 PM CDT Jos Moore MD LAB - BLOOD BANK ORD ERABLES Performing Organization Address [facility] Co de Phone Number [facility] [address] [place] [address] * HEPATITIS C AB SCREEN RFLX NAAT QUANT (10/30/2018 4:59 PM CDT) [facility] Hepatitis C Antibody Non-react shiva Non-reac tive 10/30/2018 5:42 PM CDT [facility] Comment: Hepatitis C Antibody screen indicates [...] Moore MD LAB - CHEMISTRY ASHIA VELAZQUEZ Performing Organization Address City/[facility]/ZIP Co de Phone Number [address] [phone] * LACTIC ACID BLOOD (10/30/2018 4:59 PM CDT) [facility] Lactic Acid-Stat 2.0 0.5 - 2.0 mmol/L 10/30/2018 5:18 PM CDT [facility] Blood BLOOD SPECIMEN / Unknown Venipuncture / Unknown 10/30/2018 4:59 PM CDT 10/30/2018 5:02 PM CDT Jos Moore MD LAB - CHEMISTRY ASHIA VELAZQUEZ Performing Organization Address City/[facility]/ZIP Co de Phone Number [address] [phone] * ENDOSCOPY, COLON, DIAGNOSTIC (10/28/2018 11:07 AM CDT) [facility] Report Endoscopy POC Endoscopy Department Report _ Patient Name: Siddhartha Estrellamichelleeliana Procedure Date: 10/28/2018 11:07 AM Date of : 1950 Classification: Outpatient Gender: Female Ethnicity: Not or Race: Black or _ Providers: My Cottrell Referring MD: Keenan Angulo (Referring MD) Procedure: Colonoscopy Indications: Therapeutic procedure for known colon mass Medications: Monitored Anesthesia Care Description of Procedure: Pre-Anesthesia Assessment: - Prior to the procedure, a History and Physical was performed, and patient medications and allergies were reviewed. The patient's tolerance of previous anesthesia was also reviewed. The risks and benefits of the procedure and the sedation options and risks were discussed with the patient. All questions were answered, and informed consent was obtained. Prior Anticoagulants: The patient has taken no previous anticoagulant or antiplatelet agents. ASA Grade Assessment: II - A patient with mild systemic disease. After reviewing the risks and benefits, the patient was deemed in satisfactory condition to undergo the procedure. After I obtained informed consent, the scope was passed under direct vision. Throughout the procedure, the patient's blood pressure, pulse, and oxygen saturations were monitored continuously. The [id number] was introduced through the anus and advanced to the cecum, identified by appendiceal orifice and ileocecal valve. The colonoscopy was performed without difficulty. The patient tolerated the procedure well. The quality of the bowel preparation was good. The ileocecal valve, appendiceal orifice, and rectum were photographed. Findings: The perianal and digital rectal examinations were normal. A 60 by 40 mm polyp was found in the cecum. The polyp was multi-lobulated and sessile. Preparations were made for mucosal resection. Chromoscopy with methylene blue was done to zane the borders of the lesion. A 1:60,000 solution of epinephrine with methylene blue was injected with adequate lift of the lesion from the muscularis propria. Snare mucosal resection with Ramos net retrieval was performed. A 4 x 6 cm area was resected. Resection and retrieval were complete. There was no bleeding during, and at the end, of the procedure. Thermal therapy at the edges of the EMR site for tissue destruction using snare was successful. To prevent bleeding after mucosal resection, ten hemostatic clips were successfully placed (MR conditional). The exam was otherwise without abnormality on direct and retroflexion views. Estimated Blood Loss: Estimated blood loss was minimal. Complications: No immediate complications. Impression: - One 60 by 40 mm polyp in the cecum. Mucosal resection was performed. Resection and retrieval were complete. - Edges of the EMR site were treated with thermal therapy for tissue destruction - 10 Clips (MR conditional) were placed to close the EMR defect. - The examination was otherwise normal on direct and retroflexion views. Recommendation: - Patient has a contact number available for emergencies. The signs and symptoms of potential delayed complications were discussed with the patient. Return to normal activities tomorrow. Written discharge instructions were provided to the patient. - Clear liquid diet today. - Continue present medications. - Await pathology results. - Repeat colonoscopy in 6 months to review the polypectomy site. - Return to referring physician as previously scheduled. Attending Participation: I personally performed the entire procedure. Procedure Code(s): --- Professional --- 40709, Colonoscopy, flexible; with endoscopic mucosal resection Diagnosis Code(s): --- Professional --- D12.0, Benign neoplasm of cecum K63.89, Other specified diseases of intestine CPT copyright 2016 [employer]. All rights reserved. The codes documented in this report are preliminary and upon line clearance foreman review may be revised to meet current compliance requirements. My Cottrell, 10/28/2018 12:36:25 PM Note Initiated On: 10/28/2018 11:07 AM Number of Addenda: 0 [facility] [address] [place] [address] [facility] 10/28/2018 11:0 7 AM CDT My Cottrell MD GI PROCEDURE ORDERAB LES [facility] * GROSS + MICRO EXAM (STL) (08/01/2018 3:43 PM CDT) Case Report Surgical Pathology Report Case: [id number] Authorizing Provider: Eliot Shaw MD Collected: 08/01/2018 03:43 PM Ordering Location: [facility] Received: 08/02/2018 07:59 AM Pathologist: Grover Helms MD Specimens: A) - Polyp Cecum, cecal polyp B) - Polyp Sigmoid, sigmoid colon polyp 08/04/2018 1:32 PM CDT [facility] Final Diagnosis A. Cecum, polyp, biopsy: -- Tubulovillous adenoma B. Sigmoid colon, polyp, biopsy: -- Hyperplastic polyp 08/04/2018 1:32 PM [facility] Gross Description Received fixed in formalin in two containers, each labeled with the patient's name, Siddhartha Brown. Specimen A, cecal polyp biopsy, are multiple soft, irregular, pink-church tissue fragments ranging from <0.1 to 0.2 cm in greatest dimension, with an aggregate measurement of 1.6 x 0.2 x 0.1 cm. The specimen is entirely submitted in cassette A1. Specimen B, sigmoid colon polyp, is a 0.3 x 0.1 x 0.1 cm soft, irregular, pink-church tissue fragment submitted entirely in cassette B1. NK/jam 08/04/2018 1:32 PM T [facility] Microscopic Description A. Sections show colonic mucosa with features of tubulovillous adenoma. High-grade dysplasia or malignancy is not seen. B. Sections show colonic mucosa with benign hyperplastic polyp. 08/04/2018 1:32 PM CDT [facility] Disclaimer All histochemical and/or immunohistochemical results are interpreted with controls that demonstrate appropriate staining reactions before reporting results. Note on use of immunocytochemistry reagents: This test was developed and its performance characteristic determined by [facility], Department of Laboratory Medicine. It has not been cleared or approved by the U.S. Food and Drug Administration (FDA). The FDA has determined that such clearance or approval is not necessary. The test is used for clinical purpose. It should not be regarded as investigational or for research. This laboratory is certified to perform high complexity testing. 08/04/2018 1:32 PM CDT [facility] Embedded Images 08/04/2018 1:32 PM T [facility] Pathology/Cytology POLYP OF CECUM / Unknown 08/01/2018 3:43 PM CDT 08/02/2018 7:59 AM CDT Miscellaneous samples (specimen) POLYP OF SIGMOID COLON / Unknown 08/01/2018 3:45 PM CDT 08/02/2018 7:59 AM CDT Eliot Shaw MD LAB - PATHOLOGY/CYTO LOGY ORDERABLES [facility] [address] [id number] * ENDOSCOPY, COLON, SCREENING (08/01/2018 2:51 PM CDT) Report Endoscopy POC _ Patient Name: Siddhartha Brown Procedure Date: 08/01/2018 2:51 PM Date of : 1950 Admit Type: Outpatient Age: 68 Gender: Female Attending MD: Eliot Shaw , _ Procedure: Colonoscopy Indications: Screening for colorectal malignant neoplasm Providers: Eliot Shaw (Doctor), Floresita Gallegos RN, Tasneem Thornton, [employer] Patient Profile: 68F here for screening colonoscopy. last exam >10 yrs prior Referring MD: Keenan Angulo MD (Referring MD) Medicines: Monitored Anesthesia Care Complications: No immediate complications. _ Procedure: Pre-Anesthesia Assessment: - Prior to the procedure, a History and Physical was performed, and patient medications and allergies were reviewed. The patient's tolerance of previous anesthesia was also reviewed. The risks and benefits of the procedure and the sedation options and risks were discussed with the patient. All questions were answered, and informed consent was obtained. Prior Anticoagulants: The patient has taken no previous anticoagulant or antiplatelet agents. ASA Grade Assessment: II - A patient with mild systemic disease. After reviewing the risks and benefits, the patient was deemed in satisfactory condition to undergo the procedure. After I obtained informed consent, the scope was passed under direct vision. Throughout the procedure, the patient's blood pressure, pulse, and oxygen saturations were monitored continuously. The Colonoscope was introduced through the anus and advanced to the cecum, identified by appendiceal orifice and ileocecal valve. The colonoscopy was performed without difficulty. The patient tolerated the procedure well. The quality of the bowel preparation was adequate to identify polyps 6 mm and larger in size. The ileocecal valve, appendiceal orifice, and rectum were photographed. Impression: - One 50 mm polyp in the cecum. Injected. Biopsied. - One 5 mm polyp in the sigmoid colon, removed with a cold biopsy forceps. Resected and retrieved. - Diverticulosis in the sigmoid colon, in the descending colon and in the transverse colon. - Internal hemorrhoids. Findings: The perianal and digital rectal examinations were normal. A 50 mm polyp was found in the cecum. The polyp was multi-lobulated. Area was successfully injected with 5 mL Delmy ink for tattooing. Biopsies were taken with a cold forceps for histology. A 5 mm polyp was found in the sigmoid colon. The polyp was sessile. The polyp was removed with a cold biopsy forceps. Resection and retrieval were complete. Scattered small-mouthed diverticula were found in the sigmoid colon, descending colon and transverse colon. Internal hemorrhoids were found during retroflexion. The hemorrhoids were small. _ Recommendation: - Patient has a contact number available for emergencies. The signs and symptoms of potential delayed complications were discussed with the patient. Return to normal activities tomorrow. Written discharge instructions were provided to the patient. - Resume previous diet. - Continue present medications. - Await pathology results. - Repeat colonoscopy date to be determined after pending pathology results - potentially sooner if EMR is needed Procedure Code(s): --- Professional --- 39795, Colonoscopy, flexible; with directed submucosal injection(s), any substance 04457, Colonoscopy, flexible; with biopsy, single or multiple --- Technical --- 10748, Colonoscopy, flexible; with directed submucosal injection(s), any substance 60921, Colonoscopy, flexible; with biopsy, single or multiple Diagnosis Code(s): --- Professional --- Z12.11, Encounter for screening for malignant neoplasm of colon D12.0, Benign neoplasm of cecum D12.5, Benign neoplasm of sigmoid colon K64.8, Other hemorrhoids K57.30, Diverticulosis of large intestine without perforation or abscess without bleeding --- Technical --- Z12.11, Encounter for screening for malignant neoplasm of colon D12.0, Benign neoplasm of cecum D12.5, Benign neoplasm of sigmoid colon K64.8, Other hemorrhoids K57.30, Diverticulosis of large intestine without perforation or abscess without bleeding CPT copyright 2017 [employer]. All rights reserved. The codes documented in this report are preliminary and upon line clearance foreman review may be revised to meet current compliance requirements. Eliot Shaw, 08/01/2018 4:01:37 PM This report has been signed electronically. Number of Addenda: 0 Note Initiated On: 08/01/2018 2:51 PM [facility] 08/01/2018 2:51 PM CDT Narrative Procedure Note Eliot Shaw MD - 08/01/2018 4:02 PM CDT Colonoscopy Large (50mm) multilobulated flat polyp cecum s/p bx and inking Small sigmoid polyp resected L sided diverticulosis Int hemorrhoids Dietary fiber 30g/d Will need either EMR vs malignancy w/u pending path next D/w Siddhartha Eliot Shaw MD GI PROCEDURE ORDERAB LES [facility] * XR CHEST PA AND LATERAL (07/10/2018 1:09 PM QUALITY CONTROL ASSOCIATE) Only the most recent of3 resultswithin the time period is included. Anatomical Region Laterality Modality Chest Radiographic Ann Marie ging 07/10/2018 1:17 PM QUALITY CONTROL ASSOCIATE Impressions 07/10/2018 1:17 PM QUALITY CONTROL ASSOCIATE Clear lungs. Reading Radiologist: Nickolas Redmond MD on 07/10/2018 at 1:17 PM Narrative 07/10/2018 1:17 PM QUALITY CONTROL ASSOCIATE Chest x-ray 2 views. HISTORY: Chest pain. 2 views the chest show normal heart size with normal vessels. Lungs are clear. Procedure Note Nickolas Redmond MD - 07/10/2018 Chest x-ray 2 views. HISTORY: Chest pain. 2 views the chest show normal heart size with normal vessels. Lungs are clear. IMPRESSION Clear lungs. Reading Radiologist: Nickolas Redmond MD on 07/10/2018 at 1:17 PM Kelly Perez APRN-ECOTHERAPIST DIAGNOSTIC IMAGI NG ORDERABLES * MRI CERVICAL SPINE WO CONTRAST (04/18/2018 11:24 AM QUALITY CONTROL ASSOCIATE) Only the most recent of2 resultswithin the time period is included. Anatomical Region Laterality Modality Pelvis Magnetic Resonan ce Angiography 04/18/2018 12:2 4 PM QUALITY CONTROL ASSOCIATE Impressions 04/18/2018 2:04 PM QUALITY CONTROL ASSOCIATE 1. Multilevel degenerative disc and joint disease seen in the cervical spine as described above. 2. Small thyroid nodules which could be further evaluated by sonogram. Edited by Latanya Rangel on 04/18/2018 2:04 PM Reading Radiologist: Bernard Mesa MD on 04/18/2018 at 2:04 PM Narrative 04/18/2018 2:04 PM QUALITY CONTROL ASSOCIATE EXAMINATION: MAGNETIC RESONANCE IMAGING (MRI) OF THE CERVICAL SPINE WITHOUT CONTRAST HISTORY: Dizziness and giddiness. TECHNIQUE: MRI of the cervical spine was performed without contrast according to standard protocol. FINDINGS: Comparison is made with the previous study of January 26, 2010. There is minimal retrolisthesis of C4 on C5. Vertebral bodies are normal in height without evidence of compression fractures. Marrow signal intensity is normal. The craniocervical junction and visualized portions of the posterior fossa appear normal. The spinal cord appears normal. There is multilevel degenerative disc and joint disease seen in the cervical spine most prominent at C4-C5 and C5-C6. No soft tissue abnormality is identified. Normal flow voids are identified in the vertebral arteries. Small bilateral thyroid nodules are seen. C2-3: There is no disc bulge. There is no central canal stenosis. There is no facet osteoarthritis. There is no uncovertebral joint osteoarthritis. There is no neural foraminal stenosis. C3-4: There is no disc bulge. There is no central canal stenosis. There is no facet osteoarthritis. There is mild bilateral uncovertebral joint osteoarthritis. There is mild bilateral neural foraminal stenosis. C4-5: There is diffuse posterior disc bulge. There is mild central canal stenosis. There is mild bilateral facet osteoarthritis. There is mild/moderate right uncovertebral joint osteoarthritis. There is moderate right neural foraminal stenosis. C5-6: There is mild diffuse posterior disc bulge. There is no central canal stenosis. There is mild bilateral facet osteoarthritis. There is mild bilateral uncovertebral joint osteoarthritis. There is mild right neural foraminal stenosis. C6-7: There is no disc bulge. There is no central canal stenosis. There is mild bilateral facet osteoarthritis. There is mild left uncovertebral joint osteoarthritis. There is mild left neural foraminal stenosis. C7-T1: There is no disc bulge. There is no central canal stenosis. There is moderate left facet osteoarthritis. There is moderate left uncovertebral joint osteoarthritis. There is moderate left neural foraminal stenosis. Procedure Note Bernard Mesa MD - 04/18/2018 EXAMINATION: MAGNETIC RESONANCE IMAGING (MRI) OF THE CERVICAL SPINE WITHOUT CONTRAST HISTORY: Dizziness and giddiness. TECHNIQUE: MRI of the cervical spine was performed without contrast according to standard protocol. FINDINGS: Comparison is made with the previous study of January 26, 2010. There is minimal retrolisthesis of C4 on C5. Vertebral bodies are normal in height without evidence of compression fractures. Marrow signal intensity is normal. The craniocervical junction and visualized portions of the posterior fossa appear normal. The spinal cord appears normal. There is multilevel degenerative disc and joint disease seen in the cervical spine most prominent at C4-C5 and C5-C6. No soft tissue abnormality is identified. Normal flow voids are identified in the vertebral arteries. Small bilateral thyroid nodules are seen. C2-3: There is no disc bulge. There is no central canal stenosis. There is no facet osteoarthritis. There is no uncovertebral joint osteoarthritis. There is no neural foraminal stenosis. C3-4: There is no disc bulge. There is no central canal stenosis. There is no facet osteoarthritis. There is mild bilateral uncovertebral joint osteoarthritis. There is mild bilateral neural foraminal stenosis. C4-5: There is diffuse posterior disc bulge. There is mild central canal stenosis. There is mild bilateral facet osteoarthritis. There is mild/moderate right uncovertebral joint osteoarthritis. There is moderate right neural foraminal stenosis. C5-6: There is mild diffuse posterior disc bulge. There is no central canal stenosis. There is mild bilateral facet osteoarthritis. There is mild bilateral uncovertebral joint osteoarthritis. There is mild right neural foraminal stenosis. C6-7: There is no disc bulge. There is no central canal stenosis. There is mild bilateral facet osteoarthritis. There is mild left uncovertebral joint osteoarthritis. There is mild left neural foraminal stenosis. C7-T1: There is no disc bulge. There is no central canal stenosis. There is moderate left facet osteoarthritis. There is moderate left uncovertebral joint osteoarthritis. There is moderate left neural foraminal stenosis. IMPRESSION 1. Multilevel degenerative disc and joint disease seen in the cervical spine as described above. 2. Small thyroid nodules which could be further evaluated by sonogram. Edited by Latanya Rangel on 04/18/2018 2:04 PM Reading Radiologist: Bernard Mesa MD on 04/18/2018 at 2:04 PM Yaima Crawford MD MR ORDERABLES * US ABDOMEN LIMITED (01/09/2018 11:40 AM CDT) Anatomical Region Laterality Modality Abdomen Ultrasound 01/09/2018 11:4 3 AM CDT Impressions 01/09/2018 11:50 AM CDT 1. No sonographic evidence of acute cholecystitis. 2. Normal hepatic echogenicity. Reading Radiologist: Bernard Mesa MD on 01/09/2018 at 11:50 AM Narrative 01/09/2018 11:50 AM CDT Exam: Abdominal sonogram with color Doppler evaluation. History: History of right upper quadrant abdominal pain. Findings: The visible portions of the pancreas appear normal. The liver is normal in echogenicity. No focal intrahepatic lesions are seen in the visible portions of the liver. Liver echogenicity appears normal. The common bile duct measures up to 6 mm. The gallbladder is normal without evidence of wall thickening or stones. No pericholecystic fluid is seen. The sonographic Duncan's sign is negative. The right kidney measures the right kidney measures 10.6 x 3.5 x 3.7 cm. The right renal echogenicity is normal. There is no evidence of hydronephrosis in the right kidney. Procedure Note Bernard Mesa MD - 01/09/2018 Exam: Abdominal sonogram with color Doppler evaluation. History: History of right upper quadrant abdominal pain. Findings: The visible portions of the pancreas appear normal. The liver is normal in echogenicity. No focal intrahepatic lesions are seen in the visible portions of the liver. Liver echogenicity appears normal. The common bile duct measures up to 6 mm. The gallbladder is normal without evidence of wall thickening or stones. No pericholecystic fluid is seen. The sonographic Duncan's sign is negative. The right kidney measures the right kidney measures 10.6 x 3.5 x 3.7 cm. The right renal echogenicity is normal. There is no evidence of hydronephrosis in the right kidney. IMPRESSION 1. No sonographic evidence of acute cholecystitis. 2. Normal hepatic echogenicity. Reading Radiologist: Bernard Mesa MD on 01/09/2018 at 11:50 AM Keenan Angulo MD US ORDERABLES * AMYLASE BLOOD (01/01/2018 10:42 AM CDT) Amylase 77 15 - 115 U/L [facility] ACCOUNT BILL Comment:FASTING Blood BLOOD SPECIMEN / Unknown 01/01/2018 10:42 AM CDT 01/01/2018 Narrative Resulting Agency Comment [address] [place] [phone] Keenan Angulo MD LAB - CHEMISTRY ASHIA VELAZQUE[facility] Organization Address City/State/ZIP Co de Phone Number [facility] ACCOUNT BILL [place] [place] [address] * MRA ANGIO HEAD NON CONTRAST (09/12/2017 8:17 AM CDT) Anatomical Region Laterality Modality Head Magnetic Resonan ce 09/12/2017 8:31 AM CDT Impressions 09/12/2017 9:22 AM CDT Negative for stenosis, aneurysm or occlusion. Edited by Johanna Dickinson on 09/12/2017 8:49 AM Narrative 09/12/2017 9:22 AM CDT MR ANGIOGRAM CEREBRAL VASCULATURE. HISTORY: Head injury, dizziness. 3-D xewl-su-xwjlrd technique, from the skull base to the vertex, shows no stenosis, occlusion or aneurysm. Posterior cerebral arteries arise from the anterior circulation. Vertebrobasilar system is relatively small, as expected. Procedure Note Nickolas Redmond MD - 09/12/2017 MR ANGIOGRAM CEREBRAL VASCULATURE. HISTORY: Head injury, dizziness. 3-D xoad-yk-luaaii technique, from the skull base to the vertex, shows no stenosis, occlusion or aneurysm. Posterior cerebral arteries arise from the anterior circulation. Vertebrobasilar system is relatively small, as expected. IMPRESSION Negative for stenosis, aneurysm or occlusion. Edited by Johanna Dickinson on 09/12/2017 8:49 AM Yaima Crawford MD MR ORDERABLES * MRA ANGIO NECK WO CONTRAST (09/12/2017 8:16 AM CDT) Anatomical Region Laterality Modality Head Magnetic Resonan ce 09/12/2017 8:33 AM CDT Impressions 09/12/2017 9:22 AM CDT Unremarkable study. Edited by Elaina Mcpherson on 09/12/2017 8:47 AM Narrative 09/12/2017 9:22 AM CDT MRI ANGIOGRAM CERVICAL CAROTIDS AND VERTEBRALS HISTORY: Trauma, dizziness. Images are obtained using 2-D rfeh-fi-gqktnj technique. Source images and 3-D reconstructions are provided. Vertebral arteries are patent and supply the basilar artery. Common carotid arteries, carotid bulbs and internal carotid arteries appear patent. Procedure Note Nickolas Redmond MD - 09/12/2017 MRI ANGIOGRAM CERVICAL CAROTIDS AND VERTEBRALS HISTORY: Trauma, dizziness. Images are obtained using 2-D jfqu-nm-giksgq technique. Source images and 3-D reconstructions are provided. Vertebral arteries are patent and supply the basilar artery. Common carotid arteries, carotid bulbs and internal carotid arteries appear patent. IMPRESSION Unremarkable study. Edited by Elaina Mcpherson on 09/12/2017 8:47 AM Yaima Crawford MD MR ORDERABLES * ECHOCARDIOGRAM 2D WITH DOPPLER (08/27/2017 2:04 PM CDT) 08/27/2017 2:04 PM CDT Narrative [facility] - 08/27/2017 6:04 PM CDT [address] [address] Transthoracic Echocardiogram 2D, M-mode, Doppler, and Color Doppler Patient: SIDDHARTHA BROWN MR number: [id number] Height: 60 in Weight: 149.6 lb BSA: 1.65 m Study date: 27-Aug-2017 : 1950 Age: 67 years Gender: Female Race: Black Allergies: IRBESARTAN-HYDROCHLOROTHIAZIDE, IODINE, LOVASTATIN, NIFEDIPINE, CALCIUM CARBONATE-VITAMIN D, SIMVASTATIN, TRAMADOL HCL Bad Credit Collector: Elin Vazquez RDCS Referring Physician: Yaima Crawford MD Reading Physician: Sandra Knutson, Summary: - Clinical question: - Post concussion syndrome. - History: - Negative history. - Left ventricle: - Systolic function was normal. Ejection fraction was estimated to be 65 %. - There were no regional wall motion abnormalities. - Wall thickness was at the upper limits of normal. - Right ventricle: - The size was normal. - Systolic function was normal. - Pulmonary arteries: - Systolic pressure was at the upper limits of normal. Estimated peak pressure was in the range of 30 mmHg to 35 mmHg. - Tricuspid valve: - There was mild regurgitation. Indications: Post concussion syndrome. History: Prior history: Negative history. Procedure: The procedure was performed in the out-patient area. This was a routine study. The transthoracic approach was used. The study included complete 2D imaging, M-mode, complete spectral Doppler, and color Doppler. Systolic blood pressure was 157 mmHg. Diastolic blood pressure was 76 mmHg. Images were obtained from the parasternal, apical, and subcostal acoustic windows. Left ventricle: Size was normal. Systolic function was normal. Ejection fraction was estimated to be 65 %. There were no regional wall motion abnormalities. Wall thickness was at the upper limits of normal. Doppler: Left ventricular diastolic function parameters were normal. Aortic valve: The valve was trileaflet. Leaflets exhibited normal thickness and normal cuspal separation. Doppler: There was no stenosis. There was no regurgitation. Aorta: The root exhibited normal size. Mitral valve: Valve structure was normal. There was normal leaflet separation. Doppler: The transmitral velocity was within the normal range. There was no evidence for stenosis. There was no regurgitation. Left atrium: Size was normal. Right ventricle: The size was normal. Systolic function was normal. Wall thickness was normal. Pulmonic valve: Leaflets exhibited normal thickness, no calcification, and normal cuspal separation. Doppler: There was no regurgitation. Pulmonary artery: The size was normal. Doppler: Systolic pressure was at the upper limits of normal. Estimated peak pressure was in the range of 30 mmHg to 35 mmHg. Tricuspid valve: The valve structure was normal. There was normal leaflet separation. Doppler: The transtricuspid velocity was within the normal range. There was no evidence for tricuspid stenosis. There was mild regurgitation. Right atrium: Size was normal. Systemic veins: IVC: The inferior vena cava was normal in size and course. Respirophasic changes were normal. Pericardium: The pericardium was normal in appearance. Measurement tables Other echo measurements (Reference normals) Estimated CVP 5 mmHg (--) System measurement tables 2D Ao Diam: 2.7 cm LVOT Diam: 2.2 cm LA Diam: 2.9 cm LAAs A2C: 16.5 cm2 LAAs A4C: 12.7 cm2 LAESV A-L A2C: 47.9 ml LAESV A-L A4C: 29.4 ml LAESV Index (A-L): 23.3 ml/m2 LAESV MOD A2C: 45.3 ml LAESV MOD A4C: 27.9 ml LAESV(A-L): 38.4 ml LALs A2C: 4.8 cm IVSd: 0.9 cm LVIDd: 3.6 cm LVIDs: 2.3 cm LVPWd: 1 cm CW AV VTI: 23.7 cm AV Vmax: 1 m/s AV Vmean: 0.7 m/s AV maxP.4 mmHg AV meanP.5 mmHg TR Vmax: 2.7 m/s MM TAPSE: 0 PW ANTWAN (VTI): 2.5 cm2 ANTWAN Vmax: 2.4 cm2 LVOT VTI: 15.6 cm LVOT Vmax: 0.7 m/s LVOT Vmean: 0.5 m/s LVOT maxP.9 mmHg LVOT meanP.2 mmHg MV E/A Ratio: 0.9 LATERAL E': 0.1 m/s LATERAL E/E': 8 SEPTAL E/E': 9.3 Prepared and signed by Sandra Knutson DO Signed 27-Aug-2017 18:04:06 Procedure Note Sandra Knutson DO - 08/27/2017 [place] [address] Transthoracic Echocardiogram 2D, M-mode, Doppler, and Color Doppler Patient: SIDDHARTHA BROWN MR number: [id number] Height: 60 in Weight: 149.6 lb BSA: 1.65 m Study date: 27-Aug-2017 : 1950 Age: 67 years Gender: Female Race: Black Allergies: IRBESARTAN-HYDROCHLOROTHIAZIDE, IODINE, LOVASTATIN, NIFEDIPINE, CALCIUM CARBONATE-VITAMIN D, SIMVASTATIN, TRAMADOL HCL Bad Credit Collector: Elin Vazquez RDCS Referring Physician: Yaima Crawford MD Reading Physician: Sandra Knutson DO Summary: - Clinical question: - Post concussion syndrome. - History: - Negative history. - Left ventricle: - Systolic function was normal. Ejection fraction was estimated to be 65 %. - There were no regional wall motion abnormalities. - Wall thickness was at the upper limits of normal. - Right ventricle: - The size was normal. - Systolic function was normal. - Pulmonary arteries: - Systolic pressure was at the upper limits of normal. Estimated peak pressure was in the range of 30 mmHg to 35 mmHg. - Tricuspid valve: - There was mild regurgitation. Indications: Post concussion syndrome. History: Prior history: Negative history. Procedure: The procedure was performed in the out-patient area. This was a routine study. The transthoracic approach was used. The study included complete 2D imaging, M-mode, complete spectral Doppler, and color Doppler. Systolic blood pressure was 157 mmHg. Diastolic blood pressure was 76 mmHg. Images were obtained from the parasternal, apical, and subcostal acoustic windows. Left ventricle: Size was normal. Systolic function was normal. Ejection fraction was estimated to be 65 %. There were no regional wall motion abnormalities. Wall thickness was at the upper limits of normal. Doppler: Left ventricular diastolic function parameters were normal. Aortic valve: The valve was trileaflet. Leaflets exhibited normal thickness and normal cuspal separation. Doppler: There was no stenosis. There was no regurgitation. Aorta: The root exhibited normal size. Mitral valve: Valve structure was normal. There was normal leaflet separation. Doppler: The transmitral velocity was within the normal range. There was no evidence for stenosis. There was no regurgitation. Left atrium: Size was normal. Right ventricle: The size was normal. Systolic function was normal. Wall thickness was normal. Pulmonic valve: Leaflets exhibited normal thickness, no calcification, and normal cuspal separation. Doppler: There was no regurgitation. Pulmonary artery: The size was normal. Doppler: Systolic pressure was at the upper limits of normal. Estimated peak pressure was in the range of 30 mmHg to 35 mmHg. Tricuspid valve: The valve structure was normal. There was normal leaflet separation. Doppler: The transtricuspid velocity was within the normal range. There was no evidence for tricuspid stenosis. There was mild regurgitation. Right atrium: Size was normal. Systemic veins: IVC: The inferior vena cava was normal in size and course. Respirophasic changes were normal. Pericardium: The pericardium was normal in appearance. Measurement tables Other echo measurements (Reference normals) Estimated CVP 5 mmHg (--) System measurement tables 2D Ao Diam: 2.7 cm LVOT Diam: 2.2 cm LA Diam: 2.9 cm LAAs A2C: 16.5 cm2 LAAs A4C: 12.7 cm2 LAESV A-L A2C: 47.9 ml LAESV A-L A4C: 29.4 ml LAESV Index (A-L): 23.3 ml/m2 LAESV MOD A2C: 45.3 ml LAESV MOD A4C: 27.9 ml LAESV(A-L): 38.4 ml LALs A2C: 4.8 cm IVSd: 0.9 cm LVIDd: 3.6 cm LVIDs: 2.3 cm LVPWd: 1 cm CW AV VTI: 23.7 cm AV Vmax: 1 m/s AV Vmean: 0.7 m/s AV maxP.4 mmHg AV meanP.5 mmHg TR Vmax: 2.7 m/s MM TAPSE: 0 PW ANTWAN (VTI): 2.5 cm2 ANTWAN Vmax: 2.4 cm2 LVOT VTI: 15.6 cm LVOT Vmax: 0.7 m/s LVOT Vmean: 0.5 m/s LVOT maxP.9 mmHg LVOT meanP.2 mmHg MV E/A Ratio: 0.9 LATERAL E': 0.1 m/s LATERAL E/E': 8 SEPTAL E/E': 9.3 Prepared and signed by Sadnra Knutson DO Signed 27-Aug-2017 18:04:06 Yaima Crawford MD ECHO ORDERABLES [place] [id number] [place] [address] * LAB RESULTS ORDER (01/31/2017) Only the most recent of2 resultswithin the time period is included. Scanned Document LAB - THERAPEUTIC DR KELSI MONITORING ORDERABLES * XR KNEE 1 OR 2 VW LEFT (08/10/2015) Anatomical Region Laterality Modality Lower Extremity Other Keenan Angulo MD DIAGNOSTIC IMAGING O RDERABLES * TSH (12/13/2014 1:04 PM CDT) Only the most recent of2 resultswithin the time period is included. TSH 1.21 0.358 - 3.740 uIU/mL [facility] ACCOUNT BILL Blood specimen (specimen) BLOOD SPECIMEN / Unknown 12/13/2014 1:04 PM CDT 12/13/2014 4:04 PM CDT Narrative Resulting Agency Comment [address] [phone] Keenan Angulo MD LAB - CHEMISTRY ASHIA VELAZQUEZ [facility] ACCOUNT BILL * XR HIPS BILATERAL (08/17/2014) Anatomical Region Laterality Modality Other Keenan Angulo MD DIAGNOSTIC IMAGING O RDERABLES * LIPID PROFILE W LDL/HDL (PO REF LAB) (08/09/2014 12:46 PM CDT) Only the most recent of6 resultswithin the time period is included. Cholesterol 147 100 - 199 mg/dL [facility] ACCOUNT BILL Triglycerides 56 0 - 149 mg/dL [facility] ACCOUNT BILL HDL Cholesterol 59 >39 mg/dL [facility] ACCOUNT BILL Comment: According to ATP-III Guidelines, HDL-C >59 mg/dL is considered a negative risk factor for CHD. VLDL Calculated 11 5 - 40 mg/dL [facility] ACCOUNT BILL LDL Calculated 77 0 - 99 mg/dL [facility] ACCOUNT BILL Comment NOT NEEDED [facility] ACCOUNT BILL Comment:Ancillary determined the test is not needed LDL/HDL Ratio 1.3 0.0 - 3.2 ratio units [facility] ACCOUNT BILL Comment: LDL/HDL Ratio Men Women 1/2 Avg.Risk 1.0 1.5 Avg.Risk 3.6 3.2 2X Avg.Risk 6.2 5.0 3X Avg.Risk 8.0 6.1 Blood specimen (specimen) BLOOD SPECIMEN / Unknown 08/09/2014 12:46 PM CDT 08/09/2014 11:41 PM CDT Narrative Resulting Agency Comment [facility] [address] [phone] Keenan Angulo MD LAB - CHEMISTRY ASHIA VELAZQUEZ [facility] ACCOUNT BILL * ADDY BLOOD SCREEN W/REFLEX TITER (08/09/2014 12:46 PM CDT) ADDY Negative [facility] ACCOUNT BILL Comment: Negative <1:80 Borderline 1:80 Positive >1:80 Blood specimen (specimen) BLOOD SPECIMEN / Unknown 08/09/2014 12:46 PM CDT 08/09/2014 11:41 PM CDT Narrative Resulting Agency Comment [facility] [address] [facility] [phone] Keenan Angulo MD LAB - CHEMISTRY ASHIA VELAZQUEZ Performing Organization Address [facility] de Phone Number [facility] ACCOUNT BILL * XR ABD OBSTR SERIES (11/18/2013) Anatomical Region Laterality Modality Abdomen Other Keenan Angulo MD DIAGNOSTIC IMAGING O RDERABLES * ALT (04/10/2012 9:56 AM QUALITY CONTROL ASSOCIATE) Only the most recent of3 resultswithin the time period is included. ALT 9 0 - 32 IU/L [facility] ACCOUNT BILL Blood specimen (specimen) BLOOD SPECIMEN / Unknown 04/10/2012 9:56 AM QUALITY CONTROL ASSOCIATE 04/10/2012 7:43 PM QUALITY CONTROL ASSOCIATE Narrative Resulting Agency Comment [facility] [address] [facility] [phone] Keenan Angulo MD LAB - CHEMISTRY ASHIA VELAZQUEZ Performing Organization Address [facility] de Phone Number [facility] ACCOUNT BILL * URINALYSIS MICROSCOPIC ONLY (08/06/2011 11:20 AM CDT) Only the most recent of2 resultswithin the time period is included. WBC UA 0-5 0 - 5 /hpf [facility] ACCOUNT BILL RBC UA 0-3 0 - 3 /hpf [facility] ACCOUNT BILL Epithelial Cells (non renal) None seen 0 - 10 /hpf [facility] ACCOUNT BILL Epithelial Cells (renal) NOT NEEDED [facility] ACCOUNT BILL Comment:Ancillary determined the test is not needed Casts ua NOT NEEDED [facility] ACCOUNT BILL Comment:Ancillary determined the test is not needed Casts UA NOT NEEDED [facility] ACCOUNT BILL Comment:Ancillary determined the test is not needed Crystals UA NOT NEEDED [facility] ACCOUNT BILL Comment:Ancillary determined the test is not needed Crystals UA NOT NEEDED [facility] ACCOUNT BILL Comment:Ancillary determined the test is not needed Mucus UA NOT NEEDED [facility] ACCOUNT BILL Comment:Ancillary determined the test is not needed Bacteria UA None seen None seen/Few [facility] ACCOUNT BILL Yeast UA NOT NEEDED [facility] ACCOUNT BILL Comment:Ancillary determined the test is not needed Trichomonas UA NOT NEEDED [facility] ACCOUNT BILL Comment:Ancillary determined the test is not needed Comment Urine NOT NEEDED [facility] ACCOUNT BILL Comment:Ancillary determined the test is not needed 08/06/2011 11:2 0 AM CDT 08/06/2011 6:32 PM CDT Narrative Resulting Agency Comment [facility] [address] [facility] [phone] Keenan Angulo MD LAB - URINALYSIS ORD ERABLES [facility] ACCOUNT BILL * DEXA BONE DENSITY 2 SITES (12/13/2010 5:42 PM CDT) Anatomical Region Laterality Modality Other Narrative 12/13/2010 5:42 PM CDT Keenan Angulo MD 12/13/2010 5:[address] [facility] Medical group BONE DENSITY REPORT Pt. Name: Siddhartha Brown Gender: female : 1950 Test Date: 12/13/2010 Referring Physician: Keenan Angulo MD Technologist: LASHAY Vera A Central DXA was performed today using a [employer] QDR Discovery C seat scooper machine. The images and data have been scanned. [...] Keenan Angulo MD Physician and Certified Clinical Renewable Energy Consultant Procedure Note Fina Olivarez - 12/13/2010 2:[address] [facility] Medical group BONE DENSITY REPORT Pt. Name: Siddhartha Brown Gender: female : 1950 Test Date: 12/13/2010 Referring Physician: Keenan Angulo MD Technologist: LASHAY Vera A Central DXA was performed today using a [id number] Discovery C seat scooper machine.The images and data have been scanned. Images [...] Keenan Angulo MD Physician and Certified Clinical Renewable Energy Consultant Keenan Angulo MD DEXA ORDERABLES * MRI SHOULDER WO CONT LEFT (01/06/2010 7:35 AM CDT) Anatomical Region Laterality Modality Upper Extremity Magnetic Resonan ce 01/06/2010 9:44 AM CDT Narrative 01/06/2010 10:50 AM CDT MRI left shoulder: CLINICAL INFORMATION: Pain. TECHNIQUE: Routine MR shoulder was obtained on a [place] strength magnet. FINDINGS: There is degenerative change of the acromioclavicular articulation with minimal inferior expansion of the joint capsule. There is no significant anterior or lateral downsloping of a type II acromion. The coracoacromial ligament is normal. No significant fluid accumulation is present in the subacromial-subdeltoid bursa and there is no glenohumeral joint effusion. There is mild degenerative change of the glenohumeral joint. A subchondral cyst is present within the superior glenoid. Marrow signal intensity is otherwise grossly normal. There is no fracture, subluxation or bone destruction. There is mild tendinosis of the infra and supraspinatus contribution of the rotator cuff. There is no partial or full-thickness tear. The subscapular tendon is normal. The biceps tendon is normally situated in the bicipital groove and the biceps superior labral anchor is normal. The visualized labral ligamentous complex is normal without labral tear. DIAGNOSIS: Degenerative change, acromioclavicular articulation and glenohumeral joint. Mild tendinosis infra and supraspinatus contribution of the rotator cuff. There is no partial or full-thickness tear. Procedure Note Aiden Lu MD - 01/06/2010 MRI left shoulder: CLINICAL INFORMATION: Pain. TECHNIQUE: Routine MR shoulder was obtained on a [employer] strength magnet. FINDINGS: There is degenerative change of the acromioclavicular articulation with minimal inferior expansion of the joint capsule. There is no significant anterior or lateral downsloping of a type II acromion. The coracoacromial ligament is normal. No significant fluid accumulation is present in the subacromial-subdeltoid bursa and there is no glenohumeral joint effusion. There is mild degenerative change of the glenohumeral joint. A subchondral cyst is present within the superior glenoid. Marrow signal intensity is otherwise grossly normal. There is no fracture, subluxation or bone destruction. There is mild tendinosis of the infra and supraspinatus contribution of the rotator cuff. There is no partial or full-thickness tear. The subscapular tendon is normal. The biceps tendon is normally situated in the bicipital groove and the biceps superior labral anchor is normal. The visualized labral ligamentous complex is normal without labral tear. DIAGNOSIS: Degenerative change, acromioclavicular articulation and glenohumeral joint. Mild tendinosis infra and supraspinatus contribution of the rotator cuff. There is no partial or full-thickness tear. Jose Angel Mills MD MR ORDERABLES Care Teams Refuse And Recycling Worker Relationship Specialty Start Date End Date Franci Rocha DO [address] [place] [address] PCP - General Internal Medicine 03/25/20 Franci Rocha DO [address] [place] [address] PCP - [facility] 05/06/20 Ivana Messina MD Otolaryngology 06/09/18 Yaima Crawford MD Neurology 06/09/18 Guillermo Bridges MD Resident Student Resident 06/22/19 Juanjose Lin, DPM [address] [place] [address] [address] [place] [phone] Orthopedic 06/26/21
--- OUTSIDE RECORDS SUMMARY | 2024-06-27 07:34 | XMS_ITS | Encounter Summary ---
Author Organization [facility] Health Address [address] [place] [address] Care Team Providers Care Mailing Machine Operator Name Role Phone Keenan Angulo MD Primary Care Provider [phone] Harinder Lilly MD Unavailable [phone] Keenan Angulo MD Unavailable [phone] Ivana eMssina MD Unavailable [phone] Yaima Crawford MD Unavailable [phone] Eliot Shaw MD Unavailable My Cottrell MD Unavailable [phone] Karlo Mendieta MD Unavailable [phone] Guillermo Bridges MD Unavailable Unavailable Franci Rocha DO Primary Care Provider [phone] Franci Rocha DO Unavailable [phone] Juanjose Lin DPM Unavailable [phone] Shaneka Rodrigues Unavailable [phone] Shaneka Rodrigues Unavailable [phone] Encounter Details Date Type Department Care Team (Late st Contact Info) Description 12/01/2018 [facility] Outpatient Visit [facility] [address] [place] [address] Dale Whiting MD [address] [place] [address] Social History Tobacco Use Types Packs/Day Years Used Date Smoking Tobacco: Never Smokeless Tobacco: Never Alcohol Use Standard Drinks/Week Comments Yes 1 (1 standard drink = 0.6 oz pur e alcohol) rare socially Sex and Gender Information Value Date Recorded Sex Assigned at Not on file Gender Identity Not on file Sexual Orientation Not on file documented as of this encounter Functional Status Functional Status Response Date of Assess ment Is person deaf or have serious hearing difficult y? No 11/01/2018 Is person blind or have serious difficulty seein g? No 11/01/2018 Does person have serious dif ficulty walking/climbing stairs? No 11/01/2018 Does person have difficulty dressing/bathing? No 11/01/2018 Does person have difficulty doing errands alone? No 11/01/2018 Cognitive Status Response Date of Assessm ent Does person have difficulty concentrating/remembering/making decisions? No 11/01/2018 documented as of this encounter Plan of Treatment Upcoming Encounters Date Type Department Care Team (Latest Contact Info) Description 08/18/2024 12:00 PM CDT Hospital Encounter [facility] [address] [place] [phone] Susana Polo MD [facility] [place] [phone] Surgery General 08/18/2024 12:00 PM CDT - 08/18/2024 1:00 PM CDT Surgery [facility] [address] [place] [phone] Susana Polo MD [facility] [place] [phone] COLONOSCOPY SCREEN w/ advanced endoscopist 10/19/2024 9:00 AM CDT Office Visit [facility] - Internal Medicine [address] [facility] [place] [address] Franci Rocha DO [address] [facility] [place] [place] [phone] 11/19/2024 8:45 AM CDT Office Visit [facility] [address] [facility] [address] [place] [address] Zane Mejía MD [address] [place] [address] [address] [place] [address] 04/15/2025 8:30 AM FABRIC FINISHER Office Visit [facility] - GI [address] [place] [phone] Scheduled Procedures Name Priority Associated Diagnoses Date/Ti me COLONOSCOPY SCREEN History of colon polyps 08/18/2024 12:00 PM CDT documented as of this encounter Goals Goal Patient Goal Type Associated Problems Recent Progress Patient-Stated? Author Blood Pressure < 140/90 Blood Pressure 144/90(2024 8:12 AM FABRIC FINISHER) No Yadi Muse MA Exercise 3X per week (30 min per time) Exercise Not on track( 015 10:01 AM FABRIC FINISHER) No Yadi Muse MA HDL > 40 Result Component 57(10/08/2023 11:45 AM CDT) No Yadi Muse MA documented as of this encounter Visit Diagnoses Not on filedocumented in this encounter Care Teams Mailing Machine Operator Relationship Specialty Start Date End Date Keenan Angulo MD [address] [place] [address] PCP - General 02/13/08 03/24/20 Keenan Angulo MD [address] [place] [address] PCP - Attributed-[facility] [place] 10/09/1605/05 Franci Rocha DO [address] [place] [phone] PCP - General Internal Medicine 03/25/20 Franci Rocha DO [address] [place] [phone] [facility] - Attributed-[facility] 05/06/20 Harinder Lilly MD [address] [place] [address] Orthopedic Surgery 08/09/16 06/25/21 Ivana Messina MD [address] [place] [address] Otolaryngology 06/09/18 Yaima Crawford MD [address] [place] [address] Neurology 06/09/18 Eliot Shaw MD [address] [place] [address] [place] [phone] Gastroenterology 10/30/18 06/21/19 My Cottrell MD [address] [place] [phone] Gastroenterology 10/30/18 06/21/19 Karlo Mendieta MD [address] [place] [phone] Gastroenterology 10/30/18 03/24/20 Guillermo Bridges MD [address] [place] [phone] Resident Student Resident 06/22/19 Juanjose Lin, DPM [address] [facility] [address] [place] [address] Orthopedic 06/26/21 Shaneka Rodrigues Care Coordination Specialist Care Management 10/22/23 10/22/23 Shaneka Rodrigues Care Coordination Specialist Care Management 05/13/24 05/13/24 documented as of this encounter
== END 2024-06-27 07:29 | disposition home or self-care (01) ==
DX: Z12.31 Encounter for screening mammogram for malignant neoplasm of breast (principal)
CPT/HCPCS: 77063; 77067